=== PATIENT | male | born 2005 | race Caucasian/White ===

== ENCOUNTER 2023-03-18 22:55 | Inpatient (IN) ==
[2023-03-18] MEDS ORDERED: IOPAMIDOL 100 ML BOTTLE IV ONE (22:56)
[2023-03-18] MEDS ORDERED: 0.9 % SODIUM CHLORIDE 1,000 ML IV ONE (23:09)
[2023-03-18] MEDS ORDERED: ACETAMINOPHEN 325 MG TABLET PO ONE (23:10)
[2023-03-18] MEDS ORDERED: VANCOMYCIN 750 MG in 0.9 % SODIUM CHLORIDE 250 ML IV ONE (23:11)
[2023-03-18] MEDS ORDERED: PIPERACILLIN SODIUM/TAZOBACTAM 3.375 GM in DEXTROSE 5% IN WATER 50 ML IV ONE (23:12)
[2023-03-18] MEDS ORDERED: ACETAMINOPHEN (PP) 160 MG/5 ML BOTTLE (#120) PO ONE (23:19)
[2023-03-18] MEDS ORDERED: ACETAMINOPHEN 650 MG/65 ML BAG IV ONE (23:44)
[2023-03-18 23:49] LABS: POC Calcium, Ionized 1.02 (1.16-1.32); POC Creatinine 1.1 (0.6-1.2); POC Potassium 7.3 (3.3-5.1)
--- NOTE | 2023-03-18 23:49 | Emergency Department Note ---
HPI General Chief complaint: Fever Stated complaint: fever Time Seen by Provider: 03/18/23 23:49 Source: family Mode of arrival: wheelchair Limitations: physical limitation History of Present Illness HPI Narrative: Narrative: Patient is a 18-year-old male with a past medical history significant for cerebral palsy who presents to the emergency department due to vomiting, loose stool, and tactile fever. Patient's mother states that he seemed to be okay throughout most of the day, but had an episode of vomiting tonight. She states that after this episode of vomiting she felt his forehead, and he seemed to be w arm. She states that he has also had loose stool recently. She denies measured fever prior to arrival. She denies any other findings or concerns. Related Data Home Medications Medication Instructions Recorded Confirmed albuterol sulfate 2.5 mg/3 mL 2.5 mg IH PRN PRN Wheezing 03/19/23 03/19/23 (0.083 %) solution for nebulization baclofen 10 mg tablet 10 mg PO Q12 03/19/23 03/19/23 budesonide 0.5 mg/2 mL suspension 0.5 mg inhalation QDP PRN asthma 03/19/23 03/19/23 for nebulization clotrimazole 1 % topical cream 1 applic topical TIDP PRN Rash 03/19/23 03/19/23 diphenhydramine HCl 50 mg capsule 50 mg PO QHS 03/19/23 03/19/23 omeprazole magnesium 20 mg PO HS 03/19/23 03/19/23 Allergies Allergy/AdvReac Type Severity Reaction Status Date / Time milk AdvReac Mild Gastrointestinal Verified 03/19/23 19:20 Upset Review of Systems ROS ROS Narrative: Narrative: Constitutional: Reports fever; Denies weakness ENT ED: Denies rhinorrhea Cardiovascular: Denies edema Respiratory: Denies shortness of breath or cough Gastrointestinal: Reports vomiting and diarrhea; Denies abdominal pain, constipation, hematochezia or melena Genitourinary: Denies frequency or hematuria Musculoskeletal: Denies joint swelling Integumentary: Denies rash or lesions Neurological: Denies weakness [facility] Narrative Patient History Narrative: Narrative: Medical/Surgical/Family History All Active Problems (Updated 03/21/23 @ 07:14 by Sudhakar De La Fuente MD) Herpes simplex (Acute) Bronchitis (Acute) Conjunctivitis (Acute) Abdominal pain (Acute) Upper respiratory infection (Acute) Reactive airway disease (Acute) Fall (Acute) Chin laceration (Acute) Cerebral palsy (Acute) Wound, open, finger (Acute) Acute UTI (urinary tract infection) (Acute) Sepsis secondary to UTI (Acute) Bilateral renal stones (Acute) Left ureteral stone (Acute) Hydronephrosis, left (Acute) Fever (Acute) Leukocytosis (Acute) Hypotension (Acute) Tachycardia (Acute) Kidney stone (Acute) Sepsis (Acute) Social History Alcohol Intake Frequency: does not drink Substance Use: does not use Exam Narrative Narrative: Narrative: General Limitations: physical limitation General appearance: Present alert and in no apparent distress; Absent anxious, appears intoxicated or sleepy Head Head: Present atraumatic and normocephalic Eye Eye: Present EOMI; Absent scleral icterus or nystagmus ENT ENT: Present mucous membranes moist; Absent nasal congestion Neck Neck: Present full ROM and trachea midline Chest Chest: Present normal inspection and symmetric chest wall rise; Absent tenderness Respiratory Respiratory: Present normal lung sounds bilaterally; Absent respiratory distress, rales/crackles, wheezes, stridor or accessory muscle use Cardiovascular Cardiovascular: Present normal rhythm, tachycardia and normal heart sounds Adbominal Abdominal: Present soft and normal bowel sounds; Absent distention, tenderness, guarding, rebound or rigidity Extremities Extremities: Present normal inspection and full ROM; Absent tenderness, pedal edema or pretibial edema Back Back: Present normal inspection and full ROM; Absent CVA tenderness (R) or CVA tenderness (L) Neurological Neurological: Present alert and oriented X3 Psychiatric Psychiatric: Present normal affect and normal mood Skin Skin: Present warm (WNL), dry and normal color Course Vital Signs Vital signs: Vital Signs Temperature 102.7 F H 03/18/23 22:55 Pulse Rate 160 H 03/18/23 22:55 Respiratory Rate 24 H 03/18/23 22:55 Blood Pressure 141/125 03/18/23 22:55 Pulse Oximetry (%) 100 03/18/23 22:55 Oxygen Delivery Method Room Air 03/18/23 22:55 Temperature 98.1 F 03/21/23 06:39 Pulse Rate 70 03/21/23 06:39 Respiratory Rate 12 03/21/23 06:39 Blood Pressure 93/55 03/21/23 02:39 Pulse Oximetry (%) 98 03/21/23 06:39 Oxygen Delivery Method Mechanical Ventilation 03/21/23 06:39 MDM MDM Narrative Medical decision making narrative: Narrative: Patient is a 18-year-old male who presents to the emergency department due to vomiting and loose stool. Differential diagnoses include gastroenteritis, colitis, gallbladder disease, and pancreatitis. Patient's labs are reassuring overall, but his heart rate is not improving significantly with fluids, and his blood pressure is decreasing. We are able to obtain only a single set of cultures due to patient having a difficult blood draw. We still have not been able to obtain urine, but because patient did meet SIRS criteria we did give patient antibiotics anyway. Patient's chest x-ray does not demonstrate a cause of patient's symptoms. Because his x-ray and labs are nonrevealing a CT abdomen has been performed. Patient's CT demonstrates kidney stones. After reexamination patient's mom did state that he recently had a UTI. Urine has been obtained and dip is unrevealing, but patient had already received antibiotics. I have spoken to Dr. Maria who is agreed to see patient later today. I have spoken to Dr. Ivory who has agreed to see and evaluate patient for admission. Lab Data 03/20/23 14:02 03/20/23 19:57 Labs: Lab Results 03/18/23 03/18/23 03/19/23 Range/Units 23:44 23:45 00:04 WBC 3.4 L (4.5-11.0) K/mcL RBC 3.78 L (4.63-6.08) M/mcL Hgb 14.4 (13.7-17.5) g/dL Hct 41.7 (40.1-51.0) % POC Hct 44.0 (41-55) MCV 110.3 H (80.0-100.0) fL MCH 38.1 H (26.0-34.0) pg MCHC 34.5 (31.0-36.0) g/dL RDW 13.9 (11.5-14.5) % Plt Count 119 L (140-440) K/mcL MPV 11.6 (8.8-12.5) fL Immature Gran % (Auto) 0.9 H (0.0-0.5) % Neut % (Auto) 84.8 H (38.0-78.0) % Lymph % (Auto) 13.1 L (15.5-49.0) % [place] % (Auto) 0.9 L (1.0-12.0) % Eos % (Auto) 0 (0.0-7.0) % Baso % (Auto) 0.3 (0.0-2.0) % Lymph # (Auto) 0.44 L (1.50-4.80) K/mcL [place] # (Auto) 0.03 L (0.10-0.90) K/mcL Eos # (Auto) 0 (0.00-0.70) K/mcL Baso # (Auto) 0.01 (0.00-0.30) K/mcL Immature Gran # 0.03 (0.00-0.05) K/mcl Absolute Neutrophils 2.85 (1.80-8.00) K/mcL PT (11.9-14.5) sec INR (0.9-1.1) APTT (20.0-37.0) sec D-Dimer (0.27-0.50) ug/mL POC VBG pH 7.30 L (7.32-7.42) POC VBG pCO2 at Temp 57.6 H (41-51) POC VBG pO2 19 L (25-40) POC VBG HCO3 28.4 H (24-28) POC VBG Total CO2 30.0 H (25-29) POC Venous O2 Sat 24.0 L (40-70) POC VBG Base Excess 2.0 (-2-2) VBG Lactic Acid 4.8 H* (0.5-2) POC Sodium 136 (133-145) Sodium (133-145) mmol/L POC Potassium 7.3 H* (3.3-5.1) Potassium (3.3-5.1) mmol/L POC Chloride 100 (96-108) Chloride (96-108) mmol/L Carbon Dioxide (22-30) mmol/L POC Total CO2 28.0 (22-30) Anion Gap (8.0-16.0) POC Anion Gap 16.0 (8.0-16.0) POC BUN 11 (6-20) BUN (6-20) mg/dL Creatinine (0.7-1.2) mg/dL POC Creatinine 1.1 (0.6-1.2) GFR Calculation Glucose (70-105) mg/dL POC Glucose 70 (70-105) POC WB Ioniz Calcium 1.02 L (1.16-1.32) Ionized Calcium Kristal (1.16-1.32) mmol/L Procalcitonin (<0.10) ng/mL Urine Color Urine Appearance (Clear) Urine pH (5.0-9.0) Ur Specific E[place] (1.000-1.035) Urine Protein (Negative) mg/dL Urine Glucose (UA) (Negative) mg/dL Urine Ketones (Negative) mg/dL Urine Occult Blood (Negative) mg/dL Urine Nitrate (Negative) Urine Bilirubin (Negative) mg/dL Urine Urobilinogen mg/dL Ur Leukocyte Esterase (Negative) /uL Urine RBC (0-3) /hpf Urine WBC (0-4) /hpf Ur Squamous Epith Cells (0-4) /hpf Urine Bacteria (0) /hpf Urine Mucus (None) /hpf Ur Culture Indicated? 03/19/23 03/19/23 03/19/23 Range/Units 00:04 00:04 02:01 WBC (4.5-11.0) K/mcL RBC (4.63-6.08) M/mcL Hgb (13.7-17.5) g/dL Hct (40.1-51.0) % POC Hct (41-55) MCV (80.0-100.0) fL MCH (26.0-34.0) pg MCHC (31.0-36.0) g/dL RDW (11.5-14.5) % Plt Count (140-440) K/mcL MPV (8.8-12.5) fL Immature Gran % (Auto) (0.0-0.5) % Neut % (Auto) (38.0-78.0) % Lymph % (Auto) (15.5-49.0) % [place] % (Auto) (1.0-12.0) % Eos % (Auto) (0.0-7.0) % Baso % (Auto) (0.0-2.0) % Lymph # (Auto) (1.50-4.80) K/mcL [place] # (Auto) (0.10-0.90) K/mcL Eos # (Auto) (0.00-0.70) K/mcL Baso # (Auto) (0.00-0.30) K/mcL Immature Gran # (0.00-0.05) K/mcl Absolute Neutrophils (1.80-8.00) K/mcL PT (11.9-14.5) sec INR (0.9-1.1) APTT (20.0-37.0) sec D-Dimer (0.27-0.50) ug/mL POC VBG pH 7.41 (7.32-7.42) POC VBG pCO2 at Temp 30.3 L (41-51) POC VBG pO2 32 (25-40) POC VBG HCO3 19.4 L (24-28) POC VBG Total CO2 20.0 L (25-29) POC Venous O2 Sat 63.0 (40-70) POC VBG Base Excess -5.0 L (-2-2) VBG Lactic Acid 4.2 H* (0.5-2) POC Sodium (133-145) Sodium (133-145) mmol/L POC Potassium (3.3-5.1) Potassium 2.9 L* (3.3-5.1) mmol/L POC Chloride (96-108) Chloride (96-108) mmol/L Carbon Dioxide (22-30) mmol/L POC Total CO2 (22-30) Anion Gap (8.0-16.0) POC Anion Gap (8.0-16.0) POC BUN (6-20) BUN (6-20) mg/dL Creatinine (0.7-1.2) mg/dL POC Creatinine (0.6-1.2) GFR Calculation Glucose (70-105) mg/dL POC Glucose (70-105) POC WB Ioniz Calcium (1.16-1.32) Ionized Calcium Kristal (1.16-1.32) mmol/L Procalcitonin 3.47 H (<0.10) ng/mL Urine Color Urine Appearance (Clear) Urine pH (5.0-9.0) Ur Specific [place] (1.000-1.035) Urine Protein (Negative) mg/dL Urine Glucose (UA) (Negative) mg/dL Urine Ketones (Negative) mg/dL Urine Occult Blood (Negative) mg/dL Urine Nitrate (Negative) Urine Bilirubin (Negative) mg/dL Urine Urobilinogen mg/dL Ur Leukocyte Esterase (Negative) /uL Urine RBC (0-3) /hpf Urine WBC (0-4) /hpf Ur Squamous Epith Cells (0-4) /hpf Urine Bacteria (0) /hpf Urine Mucus (None) /hpf Ur Culture Indicated? 03/19/23 03/19/23 03/19/23 Range/Units 02:58 05:28 06:20 WBC (4.5-11.0) K/mcL RBC (4.63-6.08) M/mcL Hgb (13.7-17.5) g/dL Hct (40.1-51.0) % POC Hct (41-55) MCV (80.0-100.0) fL MCH (26.0-34.0) pg MCHC (31.0-36.0) g/dL RDW (11.5-14.5) % Plt Count (140-440) K/mcL MPV (8.8-12.5) fL Immature Gran % (Auto) (0.0-0.5) % Neut % (Auto) (38.0-78.0) % Lymph % (Auto) (15.5-49.0) % [place] % (Auto) (1.0-12.0) % Eos % (Auto) (0.0-7.0) % Baso % (Auto) (0.0-2.0) % Lymph # (Auto) (1.50-4.80) K/mcL [place] # (Auto) (0.10-0.90) K/mcL Eos # (Auto) (0.00-0.70) K/mcL Baso # (Auto) (0.00-0.30) K/mcL Immature Gran # (0.00-0.05) K/mcl Absolute Neutrophils (1.80-8.00) K/mcL PT (11.9-14.5) sec INR (0.9-1.1) APTT (20.0-37.0) sec D-Dimer (0.27-0.50) ug/mL POC VBG pH (7.32-7.42) POC VBG pCO2 at Temp (41-51) POC VBG pO2 (25-40) POC VBG HCO3 (24-28) POC VBG Total CO2 (25-29) POC Venous O2 Sat (40-70) POC VBG Base Excess (-2-2) VBG Lactic Acid 4.6 H* 5.8 H* (0.5-2) POC Sodium (133-145) Sodium (133-145) mmol/L POC Potassium (3.3-5.1) Potassium (3.3-5.1) mmol/L POC Chloride (96-108) Chloride (96-108) mmol/L Carbon Dioxide (22-30) mmol/L POC Total CO2 (22-30) Anion Gap (8.0-16.0) POC Anion Gap (8.0-16.0) POC BUN (6-20) BUN (6-20) mg/dL Creatinine (0.7-1.2) mg/dL POC Creatinine (0.6-1.2) GFR Calculation Glucose (70-105) mg/dL POC Glucose (70-105) POC WB Ioniz Calcium (1.16-1.32) Ionized Calcium Kristal (1.16-1.32) mmol/L Procalcitonin (<0.10) ng/mL Urine Color Yellow Urine Appearance Hazy A (Clear) Urine pH 6.0 (5.0-9.0) Ur Specific [place] 1.011 (1.000-1.035) Urine Protein 100 A (Negative) mg/dL Urine Glucose (UA) Negative (Negative) mg/dL Urine Ketones Negative (Negative) mg/dL Urine Occult Blood 0.20 (Negative) mg/dL Urine Nitrate Negative (Negative) Urine Bilirubin Negative (Negative) mg/dL Urine Urobilinogen Negative mg/dL Ur Leukocyte Esterase Negative (Negative) /uL Urine RBC 7 H (0-3) /hpf Urine WBC 8 H (0-4) /hpf Ur Squamous Epith Cells 1 (0-4) /hpf Urine Bacteria None (0) /hpf Urine Mucus Few A (None) /hpf Ur Culture Indicated? No 03/19/23 03/19/23 03/19/23 Range/Units 08:36 08:37 08:38 WBC 16.8 H (4.5-11.0) K/mcL RBC 2.55 L (4.63-6.08) M/mcL Hgb 9.7 L (13.7-17.5) g/dL Hct 28.9 L (40.1-51.0) % POC Hct (41-55) MCV 113.3 H (80.0-100.0) fL MCH 38.0 H (26.0-34.0) pg MCHC 33.6 (31.0-36.0) g/dL RDW 13.8 (11.5-14.5) % Plt Count 61 L (140-440) K/mcL MPV 12.0 (8.8-12.5) fL Immature Gran % (Auto) 0.9 H (0.0-0.5) % Neut % (Auto) 95.2 H (38.0-78.0) % Lymph % (Auto) 2.7 L (15.5-49.0) % [place] % (Auto) 1.0 (1.0-12.0) % Eos % (Auto) 0.1 (0.0-7.0) % Baso % (Auto) 0.1 (0.0-2.0) % Lymph # (Auto) 0.46 L (1.50-4.80) K/mcL [place] # (Auto) 0.16 (0.10-0.90) K/mcL Eos # (Auto) 0.01 (0.00-0.70) K/mcL Baso # (Auto) 0.01 (0.00-0.30) K/mcL Immature Gran # 0.15 H (0.00-0.05) K/mcl Absolute Neutrophils 15.97 H (1.80-8.00) K/mcL PT (11.9-14.5) sec INR (0.9-1.1) APTT (20.0-37.0) sec D-Dimer (0.27-0.50) ug/mL POC VBG pH (7.32-7.42) POC VBG pCO2 at Temp (41-51) POC VBG pO2 (25-40) POC VBG HCO3 (24-28) POC VBG Total CO2 (25-29) POC Venous O2 Sat (40-70) POC VBG Base Excess (-2-2) VBG Lactic Acid 6.5 H* (0.5-2) POC Sodium (133-145) Sodium 138 (133-145) mmol/L POC Potassium (3.3-5.1) Potassium 2.9 L* (3.3-5.1) mmol/L POC Chloride (96-108) Chloride 111 H (96-108) mmol/L Carbon Dioxide 14 L (22-30) mmol/L POC Total CO2 (22-30) Anion Gap 13.0 (8.0-16.0) POC Anion Gap (8.0-16.0) POC BUN (6-20) BUN 11 (6-20) mg/dL Creatinine 1.1 (0.7-1.2) mg/dL POC Creatinine (0.6-1.2) GFR Calculation 96 Glucose 93 (70-105) mg/dL POC Glucose (70-105) POC WB Ioniz Calcium (1.16-1.32) Ionized Calcium Kristal 0.95 L (1.16-1.32) mmol/L Procalcitonin (<0.10) ng/mL Urine Color Urine Appearance (Clear) Urine pH (5.0-9.0) Ur Specific [place] (1.000-1.035) Urine Protein (Negative) mg/dL Urine Glucose (UA) (Negative) mg/dL Urine Ketones (Negative) mg/dL Urine Occult Blood (Negative) mg/dL Urine Nitrate (Negative) Urine Bilirubin (Negative) mg/dL Urine Urobilinogen mg/dL Ur Leukocyte Esterase (Negative) /uL Urine RBC (0-3) /hpf Urine WBC (0-4) /hpf Ur Squamous Epith Cells (0-4) /hpf Urine Bacteria (0) /hpf Urine Mucus (None) /hpf Ur Culture Indicated? 03/19/23 03/19/23 Range/Units 08:49 08:49 WBC (4.5-11.0) K/mcL RBC (4.63-6.08) M/mcL Hgb (13.7-17.5) g/dL Hct (40.1-51.0) % POC Hct (41-55) MCV (80.0-100.0) fL MCH (26.0-34.0) pg MCHC (31.0-36.0) g/dL RDW (11.5-14.5) % Plt Count (140-440) K/mcL MPV (8.8-12.5) fL Immature Gran % (Auto) (0.0-0.5) % Neut % (Auto) (38.0-78.0) % Lymph % (Auto) (15.5-49.0) % [place] % (Auto) (1.0-12.0) % Eos % (Auto) (0.0-7.0) % Baso % (Auto) (0.0-2.0) % Lymph # (Auto) (1.50-4.80) K/mcL [place] # (Auto) (0.10-0.90) K/mcL Eos # (Auto) (0.00-0.70) K/mcL Baso # (Auto) (0.00-0.30) K/mcL Immature Gran # (0.00-0.05) K/mcl Absolute Neutrophils (1.80-8.00) K/mcL PT 23.4 H (11.9-14.5) sec INR 2.0 H (0.9-1.1) APTT 51.8 H (20.0-37.0) sec D-Dimer 8.28 H (0.27-0.50) ug/mL POC VBG pH (7.32-7.42) POC VBG pCO2 at Temp (41-51) POC VBG pO2 (25-40) POC VBG HCO3 (24-28) POC VBG Total CO2 (25-29) POC Venous O2 Sat (40-70) POC VBG Base Excess (-2-2) VBG Lactic Acid (0.5-2) POC Sodium (133-145) Sodium (133-145) mmol/L POC Potassium (3.3-5.1) Potassium (3.3-5.1) mmol/L POC Chloride (96-108) Chloride (96-108) mmol/L Carbon Dioxide (22-30) mmol/L POC Total CO2 (22-30) Anion Gap (8.0-16.0) POC Anion Gap (8.0-16.0) POC BUN (6-20) BUN (6-20) mg/dL Creatinine (0.7-1.2) mg/dL POC Creatinine (0.6-1.2) GFR Calculation Glucose (70-105) mg/dL POC Glucose (70-105) POC WB Ioniz Calcium (1.16-1.32) Ionized Calcium Kristal (1.16-1.32) mmol/L Procalcitonin (<0.10) ng/mL Urine Color Urine Appearance (Clear) Urine pH (5.0-9.0) Ur Specific [place] (1.000-1.035) Urine Protein (Negative) mg/dL Urine Glucose (UA) (Negative) mg/dL Urine Ketones (Negative) mg/dL Urine Occult Blood (Negative) mg/dL Urine Nitrate (Negative) Urine Bilirubin (Negative) mg/dL Urine Urobilinogen mg/dL Ur Leukocyte Esterase (Negative) /uL Urine RBC (0-3) /hpf Urine WBC (0-4) /hpf Ur Squamous Epith Cells (0-4) /hpf Urine Bacteria (0) /hpf Urine Mucus (None) /hpf Ur Culture Indicated? EKG Data EKG #1: EKG attestation: Yes I reviewed and interpreted this EKG. EKG results narrative: Sinus tachycardia with a rate of 142, normal axis, MD of 97, QRS of 100, QTc of 382, T wave flattening in aVL, and absence of ST elevation or depression. Discharge Plan Patient/Caregiver Discharge Instructions Pt seen by CLIENT COORDINATOR/PA only: No Clinical Impression: Kidney stone, Sepsis Patient Disposition: Xfer As Outpt/Obs ([facility]) Condition: Undetermined Discharge Date/Time: 03/19/23 07:49
[2023-03-19] MEDS ORDERED: ONDANSETRON 4 MG/2 ML VIAL IV ONE (00:01)
[2023-03-19 01:30] LABS: Basophils # (Auto) 0.01 K/mcL (0.00-0.30); Basophils % (Auto) 0.3 % (0.0-2.0); Eosinophils # (Auto) 0 K/mcL (0.00-0.70); Eosinophils % (Auto) 0 % (0.0-7.0); Hematocrit 41.7 % (40.1-51.0); Hemoglobin 14.4 g/dL (13.7-17.5); Lymphocytes # (Auto) 0.44 K/mcL (1.50-4.80); Lymphocytes % (Auto) 13.1 % (15.5-49.0); Mean Cell Volume 110.3 fL (80.0-100.0); Mean Corpuscular HGB Conc 34.5 g/dL (31.0-36.0); Mean Platelet Volume 11.6 fL (8.8-12.5); Monocytes # (Auto) 0.03 K/mcL (0.10-0.90); Monocytes % (Auto) 0.9 % (1.0-12.0); Neutrophils % (Auto) 84.8 % (38.0-78.0); Platelet Count 119 K/mcL (140-440); RBC 3.78 M/mcL (4.63-6.08); Red Cell Distribution Width 13.9 % (11.5-14.5); WBC 3.4 K/mcL (4.5-11.0)
[2023-03-19] MEDS ORDERED: 0.9 % SODIUM CHLORIDE 500 ML IV ONE ×2 (01:37→02:56)
[2023-03-19] MEDS ORDERED: MAGNESIUM SULFATE 1 GM/100 ML BAG IV ONE (01:42)
[2023-03-19] MEDS ORDERED: POTASSIUM CHLORIDE 20 MEQ in DEXTROSE 5% IN WATER 250 ML IV ONE (01:42)
[2023-03-19] MEDS ORDERED: MAGNESIUM SULFATE 8.12 MEQ/2 ML VIAL IV ONE (02:29)
[2023-03-19] MEDS ORDERED: KETOROLAC 30 MG/ML VIAL IV ONE (04:42)
--- NOTE | 2023-03-19 05:03 | XRay Report ---
INDICATION: Fever, unknown infection TECHNIQUE: AP portable semiupright chest x-ray COMPARISON: Previous examination dated 06/29/2018 FINDINGS:Positioning is difficult and somewhat suboptimal with rotation toward the right Lungs:Lungs are negative. No focal pulmonary parenchymal infiltrate or mass Heart, vascular:No significant cardiomegaly. Pulmonary vascularity is normal. No pulmonary edema or pulmonary congestion Mediastinum, campbell:No mediastinal widening. No hilar mass Pleura:No pleural fluid. No pleural-based mass or calcification Skeletal:Negative. IMPRESSION: No acute abnormality Interpreted and Authenticated by: Lalito Dao 03/19/23
[2023-03-19] MEDS: 0.9 % SODIUM CHLORIDE 250 ML IV SCH ×2 (06:00→19:20)
[2023-03-19] MEDS: LACTATED RINGERS 1,000 ML IV SCH ×3 (06:01→18:47)
[2023-03-19] MEDS: NOREPINEPHRINE BITARTRATE 8 MG in 0.9 % SODIUM CHLORIDE 242 ML IV SCH ×2 (06:02→17:46)
--- NOTE | 2023-03-19 06:12 | Cat Scan Report ---
INDICATION: Sepsis, N/V/D, unknown source of infection COMPARISON: Chest x-ray dated 03/19/2023. Plain film abdomen dated 02/20/2021 TECHNIQUE: Axial images were obtained through the abdomen and pelvis. Sagittally and coronally reformatted images. 80 mL Isovue 370 injected intravenously. Oral contrast material was not administered FINDINGS: Lung bases:No focal pulmonary parenchymal infiltrate. There is a very small right pleural effusion Liver:Negative. No focal intrahepatic mass. No focal abnormality. Liver contour is smooth. No evidence for cirrhosis Gallbladder, bilary:No calcified gallstones. No gallbladder wall thickening. No dilated intra or extrahepatic bile ducts. Spleen:No splenomegaly. Normal enhancement of splenic and portal veins. Pancreas:No pancreatic mass. No peripancreatic abnormality Adrenal glands:Negative Kidneys,ureters,bladder:There is a stone in the right renal pelvis. This measures 8 x 4 x 7 mm. There is no right hydronephrosis. There is normal enhancement of right renal parenchyma. No perinephric abnormality. No other nonobstructing right renal calculi. There are multiple nonobstructing left renal calculi. There is an obstructing left renal calculus which is at the L4-5 level in the mid left ureter. This stone measures 10 x 8 x 14 mm. There is moderate left hydronephrosis with perinephric stranding. Left renal cortex enhances normally without definite evidence for pyelonephritis or lobar nephronia. Pyonephrosis is possible in this patient with leukocytosis and fever of unknown origin. Urinary bladder is distended. Urinary bladder floor appears mildly thickened but without focal mass. There is no bladder calculus. There is no intravesicle gas or intramural gas. Gastrointestinal:There is prominent fecal material throughout the colon with diffuse colonic wall thickening. Appearance is consistent with chronic constipation. There is no pneumatosis. Mild fluid-filled small bowel dilatation. No transition point or evidence for significant mechanical small bowel obstruction Negative stomach and duodenum. No focal abnormality. Appendix: The appendix is now well visualized. No dilated appendix or appendicolith. No CT evidence for appendicitis Vascular:Negative abdominal aorta. Superior mesenteric artery and celiac trunk are normal. Normal opacification of the inferior mesenteric artery Lymphatic:No retroperitoneal or mesenteric adenopathy Mesentery, peritoneum: Mild free fluid in the perihepatic space. No definite free pelvic fluid. There is no intra-abdominal abscess. There is no pneumoperitoneum Reproductive:Prostate and seminal vesicles appear enlarged. There is no abscess or surrounding inflammatory change Musculoskeletal:No lumbar compression fractures. Sacrum and pelvis are negative. No hip fracture. No abdominal wall or inguinal hernia IMPRESSION: 1. Nonobstructing renal calculi bilaterally. Obstructing stone in the left mid ureter measures 10 x 8 x 14 mm 2. Left hydronephrosis and hydroureter. Pyonephrosis is possible in this febrile patient 3. Distended bladder. No intravesical or intramural gas 4. Mild free intraperitoneal fluid in the perihepatic space. Small right pleural effusion 5. Prominent colon. Appearance consistent with chronic constipation 6. No intra-abdominal abscess. 7. Appendix is not optimally visualized but there is no CT evidence for appendicitis The exam was performed using radiation dose optimization techniques including, but not limited to, automated exposure control, adjustment of the mA and/or kV according to patient size and use of iterative reconstruction technique. Interpreted and Authenticated by: Lalito Dao 03/19/23
--- NOTE | 2023-03-19 07:04 | Urology Consult Note ---
HPI Date of Consult Consult Date: 03/19/23 Requesting physician: Sudhakar De La Fuente Consult Narrative Patient Information: Note initiated : 03/19/23 at 6:51 am Service Date, if different from initiated Date: [] Patient: Ej Kimble a 18 y/o M admitted on urosepsis. Chief Complaint: Ej is a 18-year-old male with a history of cerebral palsy. He presented to our emergency department earlier this morning with emesis, loose stool and fever. White blood cell count is actually low at 3.4. BUN and creatinine are pending. The patient was given antibiotics prior to obtaining a urine for culture. Obtaining a urine for culture was difficult due to the patient's cerebral palsy. CT of the abdomen and pelvis with contrast was obtained. This reveals an 8 x 4 x 7 mm stone in the right renal pelvis without hydronephrosis. There were multiple nonobstructing left renal stones. There is a 10 x 8 x 14 mm left ureteral stone at the level of L4-5. There is moderate left hydronephrosis and left perinephric stranding. Radiology indicated that the hydronephrosis is possible in this patient with leukocytosis and a fever. The urinary bladder was distended. There were no bladder stones. I personally reviewed the films I have personally reviewed the films. The patient is uncommunicative and history is obtained from the mother who is at the bedside. Chief complaint: Urosepsis and bilateral renal stones Reason for consult: Urosepsis and bilateral renal stones cc:: CC: Review of Systems ROS unobtainable: due to mental status All systems: reviewed and no additional remarkable complaints except as stated Constitutional Constitutional: Present fever(s) Neurological Neurological: Present as per HPI Psychiatric Psychiatric: Present as per HPI PFSH PFSH All Active Problems (Updated 03/19/23 @ 07:37 by Rafat Maria MD) Tachycardia (Acute) Hypotension (Acute) Leukocytosis (Acute) Fever (Acute) Hydronephrosis, left (Acute) Left ureteral stone (Acute) Bilateral renal stones (Acute) Sepsis secondary to UTI (Acute) Acute UTI (urinary tract infection) (Acute) Herpes simplex (Acute) Bronchitis (Acute) Conjunctivitis (Acute) Abdominal pain (Acute) Upper respiratory infection (Acute) Reactive airway disease (Acute) Fall (Acute) Chin laceration (Acute) Cerebral palsy (Acute) Wound, open, finger (Acute) Social History alcohol intake frequency: does not drink substance use type: does not use MEDS/ALLERGIES Home Medications and Allergies Home Medications Medication Instructions Recorded Confirmed Type albuterol sulfate 2.5 mg/3 mL 2.5 mg IH PRN PRN Wheezing 03/19/23 03/19/23 History (0.083 %) solution for nebulization [id number] 10 ml PO PRN PRN cold symptoms 03/19/23 03/19/23 History 2 mg-30 mg-10 mg/5 mL oral syrup (Bromfed DM) diphenhydramine HCl 50 mg capsule 50 mg PO QHS 03/19/23 03/19/23 History omeprazole magnesium 20 mg PO HS 03/19/23 03/19/23 History Allergies Allergy/AdvReac Type Severity Reaction Status Date / Time milk AdvReac Mild Gastrointestinal Verified 03/19/23 06:50 Upset Physical Examination Vital Signs Vital signs: Temp Pulse Resp BP Pulse Ox O2 Del Method 100.9 F H 123 H 26 H 87/47 100 Room Air 03/19/23 06:03 03/19/23 03:30 03/19/23 06:45 03/19/23 06:45 03/19/23 03:30 03/18/23 22:55 General physical appearance General physical exam: well nourished, moderate distress and chronically ill Eyes Eye exam: other ENT ENT exam: other (Not able to assess) Head Head exam IM: Present atraumatic, normal inspection and normocephalic Neck Neck exam: trachea midline Cardiovascular Cardiovascular exam IM: Present normal rate and rhythm and tachycardia Respiratory Respiratory exam: normal expansion, normal respiratory effort and clear to auscultation Abdomen Abdomen: Present soft and non tender Neurologic Neurologic: Absent normal coordination Musculoskeletal Musculoskeletal: Present other (Lower extremity contractures); Absent normal gait or normal posture Psychiatric Psychiatric: Absent oriented to time, oriented to person, oriented to place, speech is normal or memory intact Results Labs 03/19/23 00:04 03/19/23 00:04 Labs: Abnormal lab results 03/18/23 03/18/23 03/19/23 Range/Units 23:44 23:45 00:04 WBC 3.4 L (4.5-11.0) K/mcL RBC 3.78 L (4.63-6.08) M/mcL MCV 110.3 H (80.0-100.0) fL MCH 38.1 H (26.0-34.0) pg Plt Count 119 L (140-440) K/mcL Immature Gran % (Auto) 0.9 H (0.0-0.5) % Neut % (Auto) 84.8 H (38.0-78.0) % Lymph % (Auto) 13.1 L (15.5-49.0) % [place] % (Auto) 0.9 L (1.0-12.0) % Lymph # (Auto) 0.44 L (1.50-4.80) K/mcL [place] # (Auto) 0.03 L (0.10-0.90) K/mcL POC VBG pH 7.30 L (7.32-7.42) POC VBG pCO2 at Temp 57.6 H (41-51) POC VBG pO2 19 L (25-40) POC VBG HCO3 28.4 H (24-28) POC VBG Total CO2 30.0 H (25-29) POC Venous O2 Sat 24.0 L (40-70) POC VBG Base Excess (-2-2) VBG Lactic Acid 4.8 H* (0.5-2) POC Potassium 7.3 H* (3.3-5.1) Potassium (3.3-5.1) mmol/L POC WB Ioniz Calcium 1.02 L (1.16-1.32) Procalcitonin (<0.10) ng/mL 03/19/23 03/19/23 03/19/23 Range/Units 00:04 00:04 02:01 WBC (4.5-11.0) K/mcL RBC (4.63-6.08) M/mcL MCV (80.0-100.0) fL MCH (26.0-34.0) pg Plt Count (140-440) K/mcL Immature Gran % (Auto) (0.0-0.5) % Neut % (Auto) (38.0-78.0) % Lymph % (Auto) (15.5-49.0) % [place] % (Auto) (1.0-12.0) % Lymph # (Auto) (1.50-4.80) K/mcL [place] # (Auto) (0.10-0.90) K/mcL POC VBG pH (7.32-7.42) POC VBG pCO2 at Temp 30.3 L (41-51) POC VBG pO2 (25-40) POC VBG HCO3 19.4 L (24-28) POC VBG Total CO2 20.0 L (25-29) POC Venous O2 Sat (40-70) POC VBG Base Excess -5.0 L (-2-2) VBG Lactic Acid 4.2 H* (0.5-2) POC Potassium (3.3-5.1) Potassium 2.9 L* (3.3-5.1) mmol/L POC WB Ioniz Calcium (1.16-1.32) Procalcitonin 3.47 H (<0.10) ng/mL 03/19/23 03/19/23 Range/Units 02:58 05:28 WBC (4.5-11.0) K/mcL RBC (4.63-6.08) M/mcL MCV (80.0-100.0) fL MCH (26.0-34.0) pg Plt Count (140-440) K/mcL Immature Gran % (Auto) (0.0-0.5) % Neut % (Auto) (38.0-78.0) % Lymph % (Auto) (15.5-49.0) % [place] % (Auto) (1.0-12.0) % Lymph # (Auto) (1.50-4.80) K/mcL [place] # (Auto) (0.10-0.90) K/mcL POC VBG pH (7.32-7.42) POC VBG pCO2 at Temp (41-51) POC VBG pO2 (25-40) POC VBG HCO3 (24-28) POC VBG Total CO2 (25-29) POC Venous O2 Sat (40-70) POC VBG Base Excess (-2-2) VBG Lactic Acid 4.6 H* 5.8 H* (0.5-2) POC Potassium (3.3-5.1) Potassium (3.3-5.1) mmol/L POC WB Ioniz Calcium (1.16-1.32) Procalcitonin (<0.10) ng/mL Diabetes panel 03/19/23 Range/Units 00:04 Potassium 2.9 L* (3.3-5.1) mmol/L Pituitary panel 03/19/23 Range/Units 00:04 Potassium 2.9 L* (3.3-5.1) mmol/L Adrenal panel 03/19/23 Range/Units 00:04 Potassium 2.9 L* (3.3-5.1) mmol/L All other labs normal. Imaging CT scan - abdomen: report reviewed and image reviewed CT scan - pelvis: report reviewed and image reviewed A/P Assessment and plan (1) Cerebral palsy: Status: Acute (2) Acute UTI (urinary tract infection): Status: Acute (3) Sepsis secondary to UTI: Status: Acute (4) Bilateral renal stones: Status: Acute (5) Left ureteral stone: Status: Acute (6) Hydronephrosis, left: Status: Acute (7) Fever: Status: Acute (8) Leukocytosis: Status: Acute (9) Hypotension: Status: Acute (10) Tachycardia: Status: Acute Sepsis Sepsis Identified: Yes Date Sepsis Identified: 03/19/23 Comments: Informed patient septic per ER Narrative A/P Narrative: Ej is a 18-year-old male with a history of cerebral palsy. He is noncommunicative and all history is obtained through the mother. He presented to the emergency department this morning with complaints of fever and emesis. CT scan of the abdomen and pelvis was obtained that showed bilateral renal stones and an obstructing 10 mm left distal ureteral stone at the level of L4-5 with left hydronephrosis. The patient was given antibiotics prior to obtaining urine for culture. He has not had anything to eat or drink since yesterday evening. The plan is for him to be admitted to the hospitalist service. He has current signs of urosepsis with tachycardia and hypotension. We discussed taking him to the operating room emergently for cystoscopy, bilateral retrograde pyelograms, and bilateral ureteral stent placement. We discussed going to the operating room and under general anesthesia performing cystoscopy, bilateral retrograde pyelogram, and bilateral ureteral stent placement. I discussed the procedure with the patient and his mother. We discussed possible risks and side effects including, but not limited to: bleeding, infection, damage to the urethra and to the bladder, damage to the ureters and kidneys, postoperative urgency and frequency, and postoperative hematuria. They understand that the stones will not be treated today as we do not treat the stones in the presence of infection. We are simply going to unblock the kidneys to allow the kidneys to drain so that the infection can be cleared. He will need for further surgery to treat the stones at a later date. In addition there are small risks of heart attack, stroke and , and risks of anesthesia that the patient will discuss separately with the anesthesia provider prior to the procedure. The patient and his mother understand that the ureteral stents are temporary devices. This will need to be removed within 3 months. The patient and his mother understand the procedure and its associated risks. A signed consent form was obtained from the mother. Time Spent With Patient Time: Total time spent is greater than 50% in coordination of care (as documented) at patient's floor/unit and/or counseling patient:
--- NOTE | 2023-03-19 07:11 | Internal Med History&Physical ---
HPI History of Present Illness Patient information: Note initiated : 03/19/23 at 7:08 am Service Date, if different from initiated Date: [] Patient: Ej Kimble 18 y/o M admitted on for fever. Chief Complaint: [] History of present illness: Patient is a 18 years old male with history of asthma/reactive airway disease, cerebral palsy, developmental delay, noncommunicative, wheelchair-bound, herpes type II, presented acute onset vomiting, nausea, fever and loose stool. His mother is the main caregiver and contributed to the history. She reported that patient was in normal state of health when suddenly he started vomiting x3, he tensed up his body as if he was in distress. Mother touched patient's for her and it was quite warm to touch, but did not check his temperature. She reported patient had UTI a month ago and was treated with antibiotic. She reports patient does aspirate and is on pured diet. 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 On presentation patient was hypotensive BP 75/39, tachycardia 127 bpm, tachypneic respiratory rate 29, fever 103.3. CBC showed WBC 3.4, hemoglobin 14.4, will lactic acid 4.8, potassium 2.9, procalcitonin 3.47. UA still pending. CT abdomen and pelvis with contrast showed nonobstructing renal calculi bilaterally, obstructing stone in the left mid ureter measuring 10 x 8 x 14 mm, left hydronephrosis and hydroureter. Pyonephrosis is possible. Chest x-ray was unremarkable. EKG showed sinus tachycardia with a rate of 142, normal axis, AK of 97, QRS of 100, QTc of 382, T wave flattening in aVL, and absence of ST elevation or depression. Patient was seen with Dr. Maria from urology and with anesthesiologist in preop room. He remains hypotensive requiring vasopressor and fluid resuscitation. Review of system Constitutional: Denies fever or weakness Eyes: Denies eye pain or vision change ENT ED: Denies throat pain, hearing loss or rhinorrhea Cardiovascular: Denies chest pain, dyspnea on exertion, orthopnea or edema Respiratory: Denies shortness of breath or cough Gastrointestinal: Positive for nausea, vomiting and loose stool Genitourinary: Denies dysuria, frequency, hematuria or incontinence Musculoskeletal: Denies back pain or myalgia Integumentary: Denies rash or lesions Neurological: Denies headache, weakness, numbness, confusion, abnormal gait or dizziness Psychiatric: Denies anxiety, suicidal thoughts or homicidal thoughts Endocrine: Denies fatigue or polyuria Hematological/Lymphatic: Denies easy bleeding or easy bruising Physical examination General appearance: Present appears tired, would open his eyes but tends to keep them closed, no distress Head Head: Present normocephalic; Absent atraumatic Eye Eye: Present PERRL, EOMI and visual willard intact; Absent scleral icterus or nystagmus ENT ENT: Present mucous membranes moist; Absent nasal congestion Neck Neck: Present full ROM; Absent tenderness Chest Chest: Present normal inspection, symmetric chest wall rise and tenderness Respiratory Respiratory: Present normal lung sounds bilaterally; Absent respiratory distress or accessory muscle use Cardiovascular Cardiovascular: Present regular rate, normal rhythm and normal heart sounds Adbominal Abdominal: Present soft and normal bowel sounds; Absent distention or tenderness Rectal Rectal: Present deferred Extremities Extremities: Present normal inspection and full ROM; Absent tenderness Back Back: Present normal inspection and full ROM; Absent tenderness Neurological Neurological: Present alert, moving all limbs Psychiatric Psychiatric: Present normal affect and normal mood Skin Skin: Present warm (WNL), dry and normal color Patient was admitted for severe sepsis with septic shock, UTI and renal calculi Assessment Severe sepsis with septic shock despite appropriate fluid resuscitation, requiring vasopressor, currently on Levophed, still hypotensive with rising lactic acid Urinary tract infection Bilateral renal calculi Obstructing left ureter stone measuring 10 x 8 x 14 mm Left hydronephrosis and hydroureter Reactive airway disease/asthma Cerebral palsy Developmental delay Noncommunicative Plan Patient is going for surgery cystoscopy bilateral ureteral stent placement per urology He is hypotensive despite IV fluid resuscitation and being on Levophed. Discussed in detail, mother aware that patient is very critical and prognosis is guarded Continue Levophed and IV fluid resuscitation, will likely need another vasopressor agent Continue broad-spectrum antibiotics vancomycin and Zosyn Follow UA and culture data DVT prophylaxis GI prophylaxis Full code Critical care time 95 minutes [facility] All Active Problems (Updated 03/19/23 @ 07:37 by Rafat Maria MD) Herpes simplex (Acute) Bronchitis (Acute) Conjunctivitis (Acute) Abdominal pain (Acute) Upper respiratory infection (Acute) Reactive airway disease (Acute) Fall (Acute) Chin laceration (Acute) Cerebral palsy (Acute) Wound, open, finger (Acute) Acute UTI (urinary tract infection) (Acute) Sepsis secondary to UTI (Acute) Bilateral renal stones (Acute) Left ureteral stone (Acute) Hydronephrosis, left (Acute) Fever (Acute) Leukocytosis (Acute) Hypotension (Acute) Tachycardia (Acute) Social History alcohol intake frequency: does not drink substance use type: does not use MEDS/ALLERGIES Home Medications and Allergies Home Medications Medication Instructions Recorded Confirmed Type albuterol sulfate 2.5 mg/3 mL 2.5 mg IH PRN PRN Wheezing 03/19/23 03/19/23 History (0.083 %) solution for nebulization ehuexqmybehdsqc-olzdjuprcajmgez-EI 10 ml PO PRN PRN cold symptoms 03/19/23 03/19/23 History 2 mg-30 mg-10 mg/5 mL oral syrup (Bromfed DM) diphenhydramine HCl 50 mg capsule 50 mg PO QHS 03/19/23 03/19/23 History omeprazole magnesium 20 mg PO HS 03/19/23 03/19/23 History Allergies Allergy/AdvReac Type Severity Reaction Status Date / Time milk AdvReac Mild Gastrointestinal Verified 03/19/23 06:50 Upset EXAM Constitutional Vitals: Temp Pulse Resp BP Pulse Ox O2 Del Method 100.9 F H 123 H 25 H 84/52 100 Room Air 03/19/23 06:03 03/19/23 03:30 03/19/23 07:05 03/19/23 07:00 03/19/23 03:30 03/18/23 22:55 DATA Data Completed and Pending Labs: Labs from last 24 hours 03/19/23 03/19/23 03/19/23 06:20 05:28 02:58 WBC RBC Hgb Hct POC Hct MCV MCH MCHC RDW Plt Count MPV Immature Gran % (Auto) Neut % (Auto) Lymph % (Auto) [place] % (Auto) Eos % (Auto) Baso % (Auto) Lymph # (Auto) [place] # (Auto) Eos # (Auto) Baso # (Auto) Immature Gran # Absolute Neutrophils POC VBG pH POC VBG pCO2 at Temp POC VBG pO2 POC VBG HCO3 POC VBG Total CO2 POC Venous O2 Sat POC VBG Base Excess VBG Lactic Acid 5.8 H* 4.6 H* POC Sodium POC Potassium Potassium POC Chloride POC Total CO2 POC Anion Gap POC BUN POC Creatinine POC Glucose POC WB Ioniz Calcium Procalcitonin Urine Color Pending Urine Appearance Pending Urine pH Pending Ur Specific [place] Pending Urine Protein Pending Urine Glucose (UA) Pending Urine Ketones Pending Urine Occult Blood Pending Urine Nitrate Pending Urine Bilirubin Pending Urine Urobilinogen Pending Ur Leukocyte Esterase Pending 03/19/23 03/19/23 03/19/23 02:01 00:04 00:04 WBC RBC Hgb Hct POC Hct MCV MCH MCHC RDW Plt Count MPV Immature Gran % (Auto) Neut % (Auto) Lymph % (Auto) [place] % (Auto) Eos % (Auto) Baso % (Auto) Lymph # (Auto) [place] # (Auto) Eos # (Auto) Baso # (Auto) Immature Gran # Absolute Neutrophils POC VBG pH 7.41 POC VBG pCO2 at Temp 30.3 L POC VBG pO2 32 POC VBG HCO3 19.4 L POC VBG Total CO2 20.0 L POC Venous O2 Sat 63.0 POC VBG Base Excess -5.0 L VBG Lactic Acid 4.2 H* POC Sodium POC Potassium Potassium 2.9 L* POC Chloride POC Total CO2 POC Anion Gap POC BUN POC Creatinine POC Glucose POC WB Ioniz Calcium Procalcitonin 3.47 H Urine Color Urine Appearance Urine pH Ur Specific [place] Urine Protein Urine Glucose (UA) Urine Ketones Urine Occult Blood Urine Nitrate Urine Bilirubin Urine Urobilinogen Ur Leukocyte Esterase 03/19/23 03/18/23 03/18/23 00:04 23:45 23:44 WBC 3.4 L RBC 3.78 L Hgb 14.4 Hct 41.7 POC Hct 44.0 MCV 110.3 H MCH 38.1 H MCHC 34.5 RDW 13.9 Plt Count 119 L MPV 11.6 Immature Gran % (Auto) 0.9 H Neut % (Auto) 84.8 H Lymph % (Auto) 13.1 L [place] % (Auto) 0.9 L Eos % (Auto) 0 Baso % (Auto) 0.3 Lymph # (Auto) 0.44 L [place] # (Auto) 0.03 L Eos # (Auto) 0 Baso # (Auto) 0.01 Immature Gran # 0.03 Absolute Neutrophils 2.85 POC VBG pH 7.30 L POC VBG pCO2 at Temp 57.6 H POC VBG pO2 19 L POC VBG HCO3 28.4 H POC VBG Total CO2 30.0 H POC Venous O2 Sat 24.0 L POC VBG Base Excess 2.0 VBG Lactic Acid 4.8 H* POC Sodium 136 POC Potassium 7.3 H* Potassium POC Chloride 100 POC Total CO2 28.0 POC Anion Gap 16.0 POC BUN 11 POC Creatinine 1.1 POC Glucose 70 POC WB Ioniz Calcium 1.02 L Procalcitonin Urine Color Urine Appearance Urine pH Ur Specific [place] Urine Protein Urine Glucose (UA) Urine Ketones Urine Occult Blood Urine Nitrate Urine Bilirubin Urine Urobilinogen Ur Leukocyte Esterase Preliminary micro results at discharge 03/18/23 01:56 Blood Culture - Preliminary Blood A/P Time Spent With Patient Time: Total time spent is greater than 50% in coordination of care (as documented) at patient's floor/unit and/or counseling patient:
[2023-03-19 07:16] LABS: Appearance,Urine HAZY (Clear); Bilirubin,Urine Negative (Negative); Color,Urine YELLOW; Culture Indicated,Urine No; Glucose,Urine (UA) Negative (Negative); Ketones,Urine Negative (Negative); Leukocyte Esterase,Urine Negative /uL (Negative); Mucus,Urine FEW /hpf; Nitrate,Urine Negative (Negative); Protein,Urine 100 mg/dL (Negative); Specific Gravity,Urine 1.011 (1.000-1.035); Urine RBC 7 /hpf (0-3); Urine Squamous Epithelial Cell 1 /hpf (0-4); Urine WBC 8 /hpf (0-4); Urobilinogen,Urine Negative
[2023-03-19] MEDS ORDERED: IOVERSOL 20 ML VIAL IJ ONE (07:26)
[2023-03-19] MEDS ORDERED: LIDOCAINE 2% URO-JET 10 ML JEL.PF.APP UR ONE (07:26)
[2023-03-19] MEDS ORDERED: PIPERACILLIN SODIUM/TAZOBACTAM 3.375 GM in DEXTROSE 5% IN WATER 50 ML IV SCH (07:45)
[2023-03-19] MEDS ORDERED: ALBUMIN HUMAN 25 GM/100 ML BAG IV SCH (07:50)
[2023-03-19] MEDS ORDERED: SODIUM BICARBONATE ADULT 50 MEQ/50 ML SYRINGE IV ONE (08:01)
[2023-03-19] MEDS ORDERED: VASOPRESSIN 20 UNIT/ML VIAL ONE (08:01)
[2023-03-19] MEDS ORDERED: KETAMINE 50 MG/ML Syringe (ANEST) IV ONE (08:01)
[2023-03-19] MEDS ORDERED: ROCURONIUM 10 MG/ML ML IV ONE ×2 (08:01→19:06)
[2023-03-19] MEDS ORDERED: MIDAZOLAM 5 MG/5 ML VIAL ONE (08:01)
[2023-03-19] MEDS ORDERED: CALCIUM CHLORIDE 1,000 MG/10 ML VIAL ONE (08:01)
[2023-03-19] MEDS ORDERED: EPINEPHrine 1 MG/10 ML (1:10,000) SYRINGE IV ONE (08:01)
[2023-03-19] MEDS ORDERED: LIDOCAINE HCL/PF 100 MG/5 ML SYRINGE IV ONE (08:01)
[2023-03-19] MEDS ORDERED: NOREPINEPHRINE BITARTRATE 4 MG/4 ML VIAL IV ONE (08:01)
--- NOTE | 2023-03-19 09:02 | Operative Note ---
Brief Operative Note Date of procedure: 03/19/23 Pre-op diagnosis: Septic shock, obstructing left ureteral stone, bilateral renal stones. Post-op diagnosis: same Procedure: Cystoscopy, bilateral Grafts/Implants: Yes (6 [place] by 24 cm ureteral stents with no strings bilaterally. 18 F cath.) Anesthesia: GETA Findings: 10 mm obstructing left distal ureteral stone and bilateral renal stones. Patient with septic shock. Complications: none Surgeon: Rafat Maria Estimated blood loss (cc): 5 Specimens Removed/Pathology: none sent Condition: stable Disposition: PACU Operative Note Operative Note: After obtaining informed consent from the patient's mother, the she was brought emergently to the operating room. General anesthesia was provided. He was then with difficulty repositioned into a dorsolithotomy position. Positioning was difficult due to contracture of the lower extremities. Despite the patient's age she is also of small size. He was prepped and draped in usual sterile fashion. Attention was directed to the urethral meatus where a 21 [place] cystoscope was passed per urethra into the bladder. The bladder inspected was seen to be free of tumors and stones. Both right and left ureteral orifices were identified in the normal anatomic positions. The left ureteral orifice was cannulated using a 0.38 Macanese sensor wire. A 5 [place] open-end ureteral catheter was passed over this wire and into the left ureter. The wire was removed and a left pyelogram was performed. The stone was seen to be obstructing the left distal ureter. It was radiopaque. A 6 [place] by 24 cm left ureteral stent with no string was then passed over the wire and under fluoroscopic guidance in the left renal pelvis. The wire was removed leaving a good curl in the left renal pelvis and a good curl in the bladder. There was no significant hydronephrosis on the left. I saw only mildly cloudy urine emanate from the stent without ginger pus. Attention was directed to the right ureteral orifice. This 1 was more difficult to access due to the patient's contracture. Using the open ureteral catheter with an angled tipped Glidewire I was able to manipulate the ankle to Glidewire through the right ureteral orifice and under fluoroscopic guidance into the right renal pelvis. The open ureteral catheter was passed over the wire and the wire was removed. A right retrograde pyelogram was performed. The wire was then replaced and the open ureteral catheter was removed. A 6 [place] by 24 cm right ureteral stent with no string was then passed over the wire and under fluoroscopic guidance into the right renal pelvis. The wire was removed leaving a good curl in the right renal pelvis and a good curl in the bladder. The bladder was then irrigated and drained. The cystoscope was removed. Lidocaine jelly was placed in the urethra and the bladder. I then passed an 18 [place] Belt[place] catheter per urethra into the bladder. The balloon was inflated with 10 mL of sterile water. I passed some contrast into the catheter just to ensure it was in the proper position and it was. The catheter irrigated well. It was then placed to gravity drainage. The patient was then returned to the spine position. He was returned to the recovery room in critical condition.
--- NOTE | 2023-03-19 09:25 | XRay Report ---
INDICATION: surgical procedure TECHNIQUE: Intraoperative fluoroscopy and spot films utilized by Dr. Maria. 1.7 minutes fluoroscopy and 8.76 mGy exposure used. Left ureteral stent was placed IMPRESSION: Intraoperative fluoroscopy and spot films Interpreted and Authenticated by: Lalito Dao 03/19/23
[2023-03-19 09:26] LABS: Basophils # (Auto) 0.01 K/mcL (0.00-0.30); Basophils % (Auto) 0.1 % (0.0-2.0); Eosinophils # (Auto) 0.01 K/mcL (0.00-0.70); Eosinophils % (Auto) 0.1 % (0.0-7.0); Hematocrit 28.9 % (40.1-51.0); Hemoglobin 9.7 g/dL (13.7-17.5); Lymphocytes # (Auto) 0.46 K/mcL (1.50-4.80); Lymphocytes % (Auto) 2.7 % (15.5-49.0); Mean Cell Volume 113.3 fL (80.0-100.0); Mean Corpuscular HGB Conc 33.6 g/dL (31.0-36.0); Monocytes # (Auto) 0.16 K/mcL (0.10-0.90); Neutrophils % (Auto) 95.2 % (38.0-78.0); Platelet Count 61 K/mcL (140-440); RBC 2.55 M/mcL (4.63-6.08); Red Cell Distribution Width 13.8 % (11.5-14.5)
[2023-03-19 09:51] LABS: Partial Thromboplastin Time 51.8 sec (20.0-37.0)
[2023-03-19 09:53] LABS: Prothrombin Time 23.4 sec (11.9-14.5)
[2023-03-19 10:07] LABS: Blood Urea Nitrogen 11 mg/dL (6-20); Carbon Dioxide 14 mmol/L (22-30); Chloride 111 mmol/L (96-108); Glomerular Filtration Rate 96; Glucose 93 mg/dL (70-105)
[2023-03-19] MEDS ORDERED: [UNRECOGNIZED DRUG - OTHER] PO PRN (10:07)
[2023-03-19] MEDS ORDERED: VANCOMYCIN PER PHARMACY IV SCH (10:07)
[2023-03-19] MEDS ORDERED: FAMOTIDINE/PF 20 MG/2 ML VIAL IV SCH (10:07)
[2023-03-19] MEDS ORDERED: BACLOFEN 10 MG TABLET PO PRN (10:07)
[2023-03-19] MEDS ORDERED: ACETAMINOPHEN 325 MG TABLET PO PRN (10:07)
[2023-03-19] MEDS ORDERED: POTASSIUM CHLORIDE 40 MEQ in DEXTROSE 5% IN WATER 500 ML IV SCH ×3 (10:14→16:00)
[2023-03-19] MEDS: FLUTICASONE PROPIONATE SPRAY.NAS NS SCH (10:20)
[2023-03-19 10:21] LABS: WBC 16.8 K/mcL (4.5-11.0)
[2023-03-19] MEDS ORDERED: OMEPRAZOLE 20 MG CAPSULE PO SCH (10:30)
[2023-03-19] MEDS ORDERED: PROMETHAZINE HCL/CODEINE 1 ML SYRUP PO PRN (10:53)
[2023-03-19] MEDS ORDERED: SODIUM BICARBONATE 50 MEQ/50 ML VIAL IV SCH (10:54)
--- NOTE | 2023-03-19 11:01 | Internal Med Progress Note ---
SUBJECTIVE Subjective Patient information: Note initiated : 03/19/23 at 10:53 am Service Date, if different from initiated Date: [] Patient: Ej Kimble 18 y/o M admitted on 03/19/23 for fever. Chief Complaint: [] Additional PMFSH (Level 3 Only): Patient seen and examined multiple times. He is status post bilateral ureteral stent placement. He received 6 L of crystalloids during surgery and blood pressure improved however still requires Levophed at 5 mcg/hr, patient is now intubated, on ventilator. We will start him on propofol and as needed fentanyl. Discussed in detail case with anesthesia and with urology. Patient repeat ABGs showed improved pH however lactic acid is elevated from before, his blood pressure is stable there may be a lag. We will repeat ABG later. Will obtain chest x-ray to see if he has pulmonary edema and to evaluate for any possible ARDS. Critical care time 50 minutes Constitutional Vitals: Vital Signs Temp Pulse Resp BP Pulse Ox O2 Del Method 100.9 F H 60 11 L 60/30 98 Mechanical Ventilation 03/19/23 07:40 03/19/23 10:31 03/19/23 10:31 03/19/23 10:19 03/19/23 10:31 03/19/23 10:31 Period Temp Pulse Resp BP Sys/Michael Pulse Ox O2 Del Method O2 Flow Rate Last 24 Hr 100.9 F-103.3 F 56-160 11-41 60-151/30-132 92-100 Mechanical Ventilation-Room Air Intake and Output 03/18/23 03/19/23 03/19/23 19:59 03:59 11:59 Intake Total 1864 1829 Balance 1864 1829 Weight 37.421 kg Intake & Output: Intake & Output 03/18/23 03/19/23 03/19/23 19:59 03:59 11:59 Intake Total 1864 1829 Balance 1864 1829 Weight 37.421 kg Intake: IV 1864 1829 Sodium Chloride 0.9% 250 ml @ 30 20 mls/hr IV .[id number] KATIE Rx#: [id number] Sodium Chloride 0.9% 500 ml @ 1500 500 Wide Open IV BOLUS ONE Rx#: [id number] Lactated Ringers 1,000 ml @ 100 1000 mls/hr IV .Q10H KATIE Rx#: [id number] Levophed 8 mg In Sodium 40 Chloride 0.9% 242 ml @ 10 MCG/ MIN 18.75 mls/hr IV Q14H [facility] Rx #:[id number] Zosyn 3.375 gm In Dextrose 5% 50 in Water 50 ml @ 100 mls/hr IV ONCE ONE Rx#:[id number] Potassium Chloride 20 Meq In 260 Dextrose 5% in Water 250 ml @ 130 mls/hr IV ONCE ONE Rx#: [id number] Vancomycin 750 mg In Sodium 250 Chloride 0.9% 250 ml @ 250 mls/ hr IV ONCE ONE Rx#:[id number] Other: Urine Appearance Uretheral (Beltre) Clear Urine Color Uretheral (Beltre) Yellow Urine Odor Uretheral (Beltre) Normal OBJ DATA Labs 03/19/23 08:37 03/19/23 08:36 Labs: Abnormal Lab Results 03/19/23 03/19/23 03/19/23 10:36 08:49 08:49 WBC RBC Hgb Hct MCV MCH Plt Count Immature Gran % (Auto) Neut % (Auto) Lymph % (Auto) [place] % (Auto) Lymph # (Auto) [place] # (Auto) Immature Gran # Absolute Neutrophils PT 23.4 H INR 2.0 H APTT 51.8 H D-Dimer 8.28 H POC pH 7.28 L POC pCO2 32.6 L POC HCO3 15.3 L POC Total CO2 16.0 L POC ABG Base Excess -11.0 L ABG Lactic Acid 6.6 H* POC VBG pH POC VBG pCO2 at Temp POC VBG pO2 POC VBG HCO3 POC VBG Total CO2 POC Venous O2 Sat POC VBG Base Excess VBG Lactic Acid POC Potassium Potassium Chloride Carbon Dioxide POC WB Ioniz Calcium Ionized Calcium Kristal Procalcitonin Urine Appearance Urine Protein Urine RBC Urine WBC Urine Mucus 03/19/23 03/19/23 03/19/23 08:38 08:37 08:36 WBC 16.8 H RBC 2.55 L Hgb 9.7 L Hct 28.9 L MCV 113.3 H MCH 38.0 H Plt Count 61 L Immature Gran % (Auto) 0.9 H Neut % (Auto) 95.2 H Lymph % (Auto) 2.7 L [place] % (Auto) Lymph # (Auto) 0.46 L [place] # (Auto) Immature Gran # 0.15 H Absolute Neutrophils 15.97 H PT INR APTT D-Dimer POC pH POC pCO2 POC HCO3 POC Total CO2 POC ABG Base Excess ABG Lactic Acid POC VBG pH POC VBG pCO2 at Temp POC VBG pO2 POC VBG HCO3 POC VBG Total CO2 POC Venous O2 Sat POC VBG Base Excess VBG Lactic Acid 6.5 H* POC Potassium Potassium 2.9 L* Chloride 111 H Carbon Dioxide 14 L POC WB Ioniz Calcium Ionized Calcium Kristal 0.95 L Procalcitonin Urine Appearance Urine Protein Urine RBC Urine WBC Urine Mucus 03/19/23 03/19/23 03/19/23 06:20 05:28 02:58 WBC RBC Hgb Hct MCV MCH Plt Count Immature Gran % (Auto) Neut % (Auto) Lymph % (Auto) [place] % (Auto) Lymph # (Auto) [place] # (Auto) Immature Gran # Absolute Neutrophils PT INR APTT D-Dimer POC pH POC pCO2 POC HCO3 POC Total CO2 POC ABG Base Excess ABG Lactic Acid POC VBG pH POC VBG pCO2 at Temp POC VBG pO2 POC VBG HCO3 POC VBG Total CO2 POC Venous O2 Sat POC VBG Base Excess VBG Lactic Acid 5.8 H* 4.6 H* POC Potassium Potassium Chloride Carbon Dioxide POC WB Ioniz Calcium Ionized Calcium Kristal Procalcitonin Urine Appearance Hazy A Urine Protein 100 A Urine RBC 7 H Urine WBC 8 H Urine Mucus Few A 03/19/23 03/19/23 03/19/23 02:01 00:04 00:04 WBC RBC Hgb Hct MCV MCH Plt Count Immature Gran % (Auto) Neut % (Auto) Lymph % (Auto) [place] % (Auto) Lymph # (Auto) [place] # (Auto) Immature Gran # Absolute Neutrophils PT INR APTT D-Dimer POC pH POC pCO2 POC HCO3 POC Total CO2 POC ABG Base Excess ABG Lactic Acid POC VBG pH POC VBG pCO2 at Temp 30.3 L POC VBG pO2 POC VBG HCO3 19.4 L POC VBG Total CO2 20.0 L POC Venous O2 Sat POC VBG Base Excess -5.0 L VBG Lactic Acid 4.2 H* POC Potassium Potassium 2.9 L* Chloride Carbon Dioxide POC WB Ioniz Calcium Ionized Calcium Kristal Procalcitonin 3.47 H Urine Appearance Urine Protein Urine RBC Urine WBC Urine Mucus 03/19/23 03/18/23 03/18/23 00:04 23:45 23:44 WBC 3.4 L RBC 3.78 L Hgb Hct MCV 110.3 H MCH 38.1 H Plt Count 119 L Immature Gran % (Auto) 0.9 H Neut % (Auto) 84.8 H Lymph % (Auto) 13.1 L [place] % (Auto) 0.9 L Lymph # (Auto) 0.44 L [place] # (Auto) 0.03 L Immature Gran # Absolute Neutrophils PT INR APTT D-Dimer POC pH POC pCO2 POC HCO3 POC Total CO2 POC ABG Base Excess ABG Lactic Acid POC VBG pH 7.30 L POC VBG pCO2 at Temp 57.6 H POC VBG pO2 19 L POC VBG HCO3 28.4 H POC VBG Total CO2 30.0 H POC Venous O2 Sat 24.0 L POC VBG Base Excess VBG Lactic Acid 4.8 H* POC Potassium 7.3 H* Potassium Chloride Carbon Dioxide POC WB Ioniz Calcium 1.02 L Ionized Calcium Kristal Procalcitonin Urine Appearance Urine Protein Urine RBC Urine WBC Urine Mucus Meds: Medications Acetaminophen (Acetaminophen 325 Mg Tablet) 650 mg PO Q4-6HP PRN; Protocol PRN Reason: Per Pain Protocol/Fever > 101 Albuterol Sulfate (Albuterol Sulfate 2.5 Mg/3 Ml Nebulizer) 2.5 mg NEB Q4 KATIE Baclofen (Baclofen 10 Mg Tablet) 10 mg PO TIDP PRN PRN Reason: Pain Famotidine (Famotidine/Pf 20 Mg/2 Ml Vial) 20 mg IV Q12 KATIE Last Admin: 03/19/23 10:22 Dose: 20 mg Fluticasone Propionate (Fluticasone Propionate [place].Man) 2 spray NS DAILY KATIE Last Admin: 03/19/23 10:20 Dose: Not Given Norepinephrine Bitartrate 8 mg (/ Sodium Chloride) 250 mls @ 18.75 mls/hr IV Q14H KATIE; Protocol Last Titration: 03/19/23 07:30 Dose: 0 mcg/min, 0 mls/hr Sodium Chloride (Sodium Chloride 0.9%) 250 mls @ 20 mls/hr IV .[id number] KATIE Last Infusion: 03/19/23 07:30 Dose: 0 mls/hr Lactated Ringer's (Lactated Ringers) 1,000 mls @ 100 mls/hr IV .Q10H KATIE Last Infusion: 03/19/23 07:29 Dose: Infused Albumin Human (Buminate) 25 gm in 100 mls @ 200 mls/hr IV ONCE KATIE Stop: 03/19/23 12:00 Last Admin: 03/19/23 10:20 Dose: 200 mls/hr Piperacillin Sod/Tazobactam (Sod 3.375 gm/ Dextrose) 50 mls @ 100 mls/hr IV Q6H KATIE; Protocol Vasopressin 20 unit/ Dextrose 100 mls @ 6 mls/hr IV Q17H KATIE; Protocol Potassium Chloride 40 meq/ (Dextrose) 520 mls @ 130 mls/hr IV ONCE KATIE Stop: 03/19/23 15:00 Potassium Chloride 40 meq/ (Dextrose) 520 mls @ 86.667 mls/hr IV ONCE KATIE Stop: 03/19/23 16:00 Vancomycin HCl 750 mg/ Sodium (Chloride) 250 mls @ 250 mls/hr IV Q24H KATIE Propofol 1,000 mg/ Premix 100 mls @ 1.123 mls/hr IV .Q24H KATIE; Protocol Non-Formulary Medication (Promethazine-Codeine) 5 ml PO Q4H PRN PRN Reason: Cough Omeprazole (Omeprazole 20 Mg Capsule) 20 mg PO ACB KATIE Ondansetron HCl (Ondansetron 4 Mg/2 Ml Vial) 4 mg IV Q4-6HP PRN; Protocol PRN Reason: Nausea And Vomiting Prednisone (Prednisone 5 Mg Tablet) 5 mg PO 1HRACBID KATIE Sodium Chloride (0.9 % Sodium Chloride 10 Ml Syringe) 10 ml IV Q8 KATIE Vancomycin HCl (Vancomycin Per Pharmacy) 1 order IV UD KATIE; Protocol A/P Time Spent With Patient Time: Total time spent is greater than 50% in coordination of care (as documented) at patient's floor/unit and/or counseling patient:
[2023-03-19] MEDS: PROPOFOL 1,000 MG in PREMIX 1 BAG IV SCH (11:15)
[2023-03-19] MEDS: ALBUTEROL SULFATE 2.5 MG/3 ML NEBULIZER NEB SCH ×4 (11:16→23:45)
--- NOTE | 2023-03-19 11:18 | XRay Report ---
INDICATION: Et tube placement endotracheal tube and esophagogastric tube placement TECHNIQUE: AP portable supine chest x-ray. AP portable supine upper abdomen COMPARISON: Previous chest x-ray dated 03/19/2023 FINDINGS: Esophagogastric tube tip is in the proximal stomach. The sidehole of the catheter is below the level of the diaphragm. Incidental note is made of interval placement of bilateral ureteral stents Endotracheal tube tip is at the thoracic inlet, 4.5 cm above the avel. Lungs are suboptimally expanded on this supine radiograph. There are bilateral pulmonary parenchymal infiltrates which appear new since preoperative evaluation dated 03/19/2023. Aspiration is possible. Follow-up radiographs are recommended IMPRESSION: 1. Endotracheal tube tip at the thoracic inlet 2. Esophagogastric tube tip in the proximal stomach 3. Bilateral pulmonary parenchymal infiltrates. Aspiration pneumonia is possible Interpreted and Authenticated by: Lalito Dao 03/19/23
[2023-03-19] MEDS ORDERED: SODIUM BICARBONATE VIAL 50 MEQ in EMPTYBAG 0 ML IV SCH (11:30)
[2023-03-19 11:57] LABS: Basophils # (Auto) 0.03 K/mcL (0.00-0.30); Basophils % (Auto) 0.1 % (0.0-2.0); Eosinophils # (Auto) 0.01 K/mcL (0.00-0.70); Eosinophils % (Auto) 0 % (0.0-7.0); Hematocrit 36.4 % (40.1-51.0); Hemoglobin 12.2 g/dL (13.7-17.5); Lymphocytes # (Auto) 0.36 K/mcL (1.50-4.80); Lymphocytes % (Auto) 1.5 % (15.5-49.0); Mean Cell Volume 115.6 fL (80.0-100.0); Mean Corpuscular HGB Conc 33.5 g/dL (31.0-36.0); Mean Platelet Volume 12.5 fL (8.8-12.5); Monocytes # (Auto) 0.21 K/mcL (0.10-0.90); Monocytes % (Auto) 0.9 % (1.0-12.0); Platelet Count 87 K/mcL (140-440); RBC 3.15 M/mcL (4.63-6.08); Red Cell Distribution Width 14.4 % (11.5-14.5); WBC 24.5 K/mcL (4.5-11.0)
[2023-03-19 12:03] LABS: ALT/SGPT 38 U/L (<40); AST/SGOT 57 U/L (<40); Albumin 2.6 gm/dL (3.2-5.2); Albumin/Globulin Ratio 1.6 (1.0-2.3); Alkaline Phosphatase 78 U/L (39-117); Bilirubin,Total 1.6 mg/dL (0.1-1.0); Blood Urea Nitrogen 10 mg/dL (6-20); Calcium 7.7 mg/dL (8.6-10.4); Carbon Dioxide 16 mmol/L (22-30); Chloride 108 mmol/L (96-108); Globulin 1.6 gm/dL (2.2-3.7); Glomerular Filtration Rate 96; Glucose 70 mg/dL (70-105)
[2023-03-19] MEDS: VASOPRESSIN 20 UNIT in DEXTROSE 5% IN WATER 99 ML IV SCH (12:53)
[2023-03-19] MEDS: PIPERACILLIN SODIUM/TAZOBACTAM 3.375 GM in DEXTROSE 5% IN WATER 50 ML IV SCH ×3 (12:55→23:53)
[2023-03-19] MEDS: 0.9 % SODIUM CHLORIDE 10 ML SYRINGE IV SCH ×3 (13:19→20:17)
[2023-03-19] MEDS: ACETAMINOPHEN 650 MG/65 ML BAG IV PRN (15:03)
[2023-03-19 15:17] LABS: Blood Urea Nitrogen 11 mg/dL (6-20); Calcium 7.4 mg/dL (8.6-10.4); Carbon Dioxide 15 mmol/L (22-30); Chloride 108 mmol/L (96-108); Glomerular Filtration Rate 87; Glucose 188 mg/dL (70-105)
[2023-03-19] MEDS: SODIUM BICARBONATE VIAL 150 MEQ in DEXTROSE 5% IN WATER 850 ML IV SCH (15:43)
[2023-03-19] MEDS ORDERED: predniSONE 5 MG TABLET PO SCH (16:30)
--- NOTE | 2023-03-19 17:08 | XRay Report ---
INDICATION: central line and esophageal probe placement TECHNIQUE: AP portable supine chest x-ray COMPARISON: None FINDINGS: Right-sided central venous catheter with its tip in appropriate position for superior vena cava. No pneumothorax identified on this supine radiograph Endotracheal tube tip at the thoracic inlet Esophagogastric tube with its tip in the stomach There are bilateral ureteral stent catheters There is a moderate right pleural effusion which is new since previous examinations. There are diffuse right-sided infiltrates. Left lung is essentially clear. Infiltrates may be due to pneumonia. Asymmetric pulmonary edema is possible. Clinical correlation follow-up radiographs recommended. IMPRESSION: 1. Right central venous catheter in appropriate position for superior vena cava. No detectable pneumothorax on this supine radiograph 2. Endotracheal tube and esophagogastric tube are unchanged as described above 3. Diffuse right-sided infiltrates and right pleural effusion. Findings may be due to pneumonia or asymmetric pulmonary edema Interpreted and Authenticated by: Lalito Dao 03/19/23
[2023-03-19 17:21] LABS: ALT/SGPT 39 U/L (<40); AST/SGOT 65 U/L (<40); Albumin 2.6 gm/dL (3.2-5.2); Albumin/Globulin Ratio 1.6 (1.0-2.3); Alkaline Phosphatase 50 U/L (39-117); Bilirubin,Total 2.2 mg/dL (0.1-1.0); Blood Urea Nitrogen 11 mg/dL (6-20); Calcium 7.8 mg/dL (8.6-10.4); Carbon Dioxide 17 mmol/L (22-30); Chloride 107 mmol/L (96-108); Globulin 1.6 gm/dL (2.2-3.7); Glomerular Filtration Rate 87; Glucose 223 mg/dL (70-105)
[2023-03-19] MEDS ORDERED: FUROSEMIDE 20 MG/2 ML VIAL IV ONE (18:04)
[2023-03-19] MEDS ORDERED: fentaNYL 50 ML ONE (19:18)
[2023-03-19 20:55] LABS: Blood Urea Nitrogen 10 mg/dL (6-20); Calcium 6.8 mg/dL (8.6-10.4); Carbon Dioxide 18 mmol/L (22-30); Chloride 108 mmol/L (96-108); Glomerular Filtration Rate 108; Glucose 258 mg/dL (70-105)
[2023-03-19] MEDS: fentaNYL 2,500 MCG in 0.9 % SODIUM CHLORIDE 200 ML IV SCH (23:52)
[2023-03-20] MEDS ORDERED: NOREPINEPHRINE BITARTRATE 4 MG/4 ML VIAL IV ONE (02:33)
[2023-03-20] MEDS: NOREPINEPHRINE BITARTRATE 8 MG in 0.9 % SODIUM CHLORIDE 242 ML IV SCH ×3 (03:26→18:03)
[2023-03-20] MEDS: VASOPRESSIN 20 UNIT in DEXTROSE 5% IN WATER 99 ML IV SCH (03:27)
[2023-03-20] MEDS: ALBUTEROL SULFATE 2.5 MG/3 ML NEBULIZER NEB SCH ×6 (04:24→23:04)
[2023-03-20] MEDS: 0.9 % SODIUM CHLORIDE 10 ML SYRINGE IV SCH ×6 (04:57→21:17)
[2023-03-20] MEDS: PIPERACILLIN SODIUM/TAZOBACTAM 3.375 GM in DEXTROSE 5% IN WATER 50 ML IV SCH ×3 (05:39→18:05)
--- NOTE | 2023-03-20 06:05 | Ultrasound Report ---
INDICATION: Hyperbilirubinemia, sepsis, r/o cholecystitis TECHNIQUE: Grayscale and color flow Doppler spectral imaging COMPARISON: Abdominal CT scan dated 03/19/2023 FINDINGS: Limited evaluation as this patient could not move. The patient was on a ventilator. Gallbladder:Possible subtle tiny calculi in the dependent portion of the gallbladder lumen. This is not considered definite. There is a small amount of pericholecystic fluid which is probably ascites. Small amount of fluid is identified adjacent to the liver. Gallbladder wall measures 4 mm. This is nonspecific Common bile duct:No intra or extrahepatic bile duct dilatation.. Common bile duct measures4 mm IMPRESSION: 1. Possible tiny stones in the dependent portion of the gallbladder. This finding is not definite 2. Mild nonspecific gallbladder wall thickening. Pericholecystic and perihepatic fluid consistent with ascites Interpreted and Authenticated by: Lalito Dao 03/20/23
[2023-03-20 06:40] LABS: ALT/SGPT 40 U/L (<40); AST/SGOT 53 U/L (<40); Albumin 2.3 gm/dL (3.2-5.2); Albumin/Globulin Ratio 1.4 (1.0-2.3); Alkaline Phosphatase 53 U/L (39-117); Basophils # (Auto) 0.02 K/mcL (0.00-0.30); Basophils % (Auto) 0.1 % (0.0-2.0); Bilirubin,Total 2.2 mg/dL (0.1-1.0); Blood Urea Nitrogen 11 mg/dL (6-20); Carbon Dioxide 21 mmol/L (22-30); Chloride 108 mmol/L (96-108); Eosinophils # (Auto) 0.02 K/mcL (0.00-0.70); Eosinophils % (Auto) 0.1 % (0.0-7.0); Globulin 1.6 gm/dL (2.2-3.7); Glomerular Filtration Rate 123; Glucose 163 mg/dL (70-105); Hematocrit 31.6 % (40.1-51.0); Hemoglobin 11.3 g/dL (13.7-17.5); Lymphocytes # (Auto) 2.69 K/mcL (1.50-4.80); Mean Cell Volume 106.4 fL (80.0-100.0); Mean Corpuscular HGB Conc 35.8 g/dL (31.0-36.0); Mean Platelet Volume 13.5 fL (8.8-12.5); Monocytes # (Auto) 0.53 K/mcL (0.10-0.90); Monocytes % (Auto) 1.4 % (1.0-12.0); Neutrophils % (Auto) 86.7 % (38.0-78.0); Platelet Count 54 K/mcL (140-440); RBC 2.97 M/mcL (4.63-6.08); Red Cell Distribution Width 13.6 % (11.5-14.5); WBC 38.2 K/mcL (4.5-11.0)
[2023-03-20] MEDS ORDERED: POTASSIUM CHLORIDE 20 MEQ PACKET PO SCH ×2 (07:07→11:00)
[2023-03-20] MEDS: PROPOFOL 1,000 MG in PREMIX 1 BAG IV SCH (07:31)
[2023-03-20] MEDS: PANTOPRAZOLE 40 MG VIAL IV SCH (07:33)
[2023-03-20 07:47] LABS: Phosphorous 1.3 mg/dL (2.5-4.5)
[2023-03-20] MEDS ORDERED: POTASSIUM CHLORIDE 40 MEQ in DEXTROSE 5% IN WATER 250 ML IV SCH ×2 (08:00→13:00)
[2023-03-20] MEDS: FLUTICASONE PROPIONATE SPRAY.NAS NS SCH (08:31)
[2023-03-20] MEDS: VANCOMYCIN 750 MG in 0.9 % SODIUM CHLORIDE 250 ML IV SCH (09:43)
[2023-03-20] MEDS: ACETAMINOPHEN 650 MG/65 ML BAG IV PRN (10:25)
--- NOTE | 2023-03-20 10:33 | Ultrasound Report ---
INDICATION: s/p ureteral placement, r/o obstruction TECHNIQUE: Grayscale and color flow Doppler spectral imaging. COMPARISON: Previous CT scan dated 03/19/2023 FINDINGS: Right kidney: Right kidney measures8.7 x 4.4 x 4.1 cm. There is no hydronephrosis. No solid or cystic mass. The right renal pelvis stone identified on CT scan is not well-visualized presently. Left kidney: Left kidney measures8.0 x 4.1 x 3.8 cm. Interval resolution of hydronephrosis. No significant dilatation of the left renal collecting system on present examination. There are nonobstructing calculi in the left kidney. Left ureteral stent is not visualized. Bladder: There is a [place] catheter within the urinary bladder. Bladder is not evaluated IMPRESSION: 1. Interval resolution of left hydronephrosis. No significant hydronephrosis at this time 2. Nonobstructing calculi in the left kidney. Interpreted and Authenticated by: Lalito Dao 03/20/23
[2023-03-20] MEDS: CHLORHEXIDINE GLUCONATE 1 ML ORAL.SOL SWABMOUTH SCH ×2 (10:53→21:16)
[2023-03-20] MEDS: 0.9 % SODIUM CHLORIDE 250 ML IV SCH (11:00)
[2023-03-20] MEDS ORDERED: MAGNESIUM SULFATE 4 GM/100 ML BAG IV ONE (11:00)
--- NOTE | 2023-03-20 11:59 | XRay Report ---
INDICATION: Mechanically Ventilated TECHNIQUE: AP portable supine chest x-ray COMPARISON: Previous examinations dated 03/19/2023 FINDINGS: Endotracheal tube at the thoracic inlet, unchanged Esophagogastric tube in the proximal stomach Right central venous catheter in appropriate position for superior vena cava Left lung is negative. No focal pulmonary parenchymal infiltrate. There is right pleural fluid. There is right upper lobe volume loss or pneumonia. Mild left basilar infiltrate. Overall appearance is improved since 03/19/2023, 1645 IMPRESSION: 1. Right pleural fluid and infiltrates 2. Interval improvement Interpreted and Authenticated by: Lalito Dao 03/20/23
[2023-03-20] MEDS: SODIUM BICARBONATE VIAL 150 MEQ in DEXTROSE 5% IN WATER 850 ML IV SCH (12:33)
[2023-03-20] MEDS ORDERED: POTASSIUM PHOSPHATE 40 MEQ in DEXTROSE 5% IN WATER 500 ML IV ONE (13:00)
[2023-03-20 15:29] LABS: Basophils # (Auto) 0.07 K/mcL (0.00-0.30); Basophils % (Auto) 0.3 % (0.0-2.0); Eosinophils # (Auto) 0.05 K/mcL (0.00-0.70); Eosinophils % (Auto) 0.2 % (0.0-7.0); Hematocrit 29.5 % (40.1-51.0); Hemoglobin 10.6 g/dL (13.7-17.5); Lymphocytes # (Auto) 2.65 K/mcL (1.50-4.80); Lymphocytes % (Auto) 10.1 % (15.5-49.0); Mean Cell Volume 108.5 fL (80.0-100.0); Mean Corpuscular HGB Conc 35.9 g/dL (31.0-36.0); Monocytes # (Auto) 0.55 K/mcL (0.10-0.90); Monocytes % (Auto) 2.1 % (1.0-12.0); Neutrophils % (Auto) 82.5 % (38.0-78.0); Platelet Count 37 K/mcL (140-440); RBC 2.72 M/mcL (4.63-6.08); Red Cell Distribution Width 14.2 % (11.5-14.5); WBC 26.3 K/mcL (4.5-11.0)
--- NOTE | 2023-03-20 15:35 | Internal Med Progress Note ---
SUBJECTIVE Subjective Patient information: Note initiated : 03/20/23 at 3:34 pm Service Date, if different from initiated Date: [] Patient: Ej Kimble 18 y/o M admitted on 03/19/23 for fever. Chief Complaint: [] Additional PMFSH (Level 3 Only): Patient is a 18 years old male with history of asthma/reactive airway disease, cerebral palsy, developmental delay, noncommunicative, wheelchair-bound, herpes type II, presented acute onset vomiting, nausea, fever and loose stool. His mother is the main caregiver and contributed to the history. She reported that patient was in normal state of health when suddenly he started vomiting x3, he t ensed up his body as if he was in distress. Mother touched patient's for her and it was quite warm to touch, but did not check his temperature. She reported patient had UTI a month ago and was treated with antibiotic. She reports patient does aspirate and is on pured diet. 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 On presentation patient was hypotensive BP 75/39, tachycardia 127 bpm, tachypneic respiratory rate 29, fever 103.3. CBC showed WBC 3.4, hemoglobin 14.4, will lactic acid 4.8, potassium 2.9, procalcitonin 3.47. UA still pending. CT abdomen and pelvis with contrast showed nonobstructing renal calculi bilaterally, obstructing stone in the left mid ureter measuring 10 x 8 x 14 mm, left hydronephrosis and hydroureter. Pyonephrosis is possible. Chest x-ray was unremarkable. EKG showed sinus tachycardia with a rate of 142, normal axis, AR of 97, QRS of 100, QTc of 382, T wave flattening in aVL, and absence of ST elevation or depression. Patient was seen with Dr. Maria from urology and with anesthesiologist in preop room. He remains hypotensive requiring vasopressor and fluid resuscitation. 03/20. Patient is status post bilateral ureteral stent placement, he received 6 L of crystalloids during procedure however became hypotensive. Patient was intubated on Levophed, propofol, fentanyl. Lactic acid was rising however now improving. Renal ultrasound ordered. Abdominal ultrasound ordered. Review of system Constitutional: Denies fever or weakness Eyes: Denies eye pain or vision change ENT ED: Denies throat pain, hearing loss or rhinorrhea Cardiovascular: Denies chest pain, dyspnea on exertion, orthopnea or edema Respiratory: Denies shortness of breath or cough Gastrointestinal: Positive for nausea, vomiting and loose stool Genitourinary: Denies dysuria, frequency, hematuria or incontinence Musculoskeletal: Denies back pain or myalgia Integumentary: Denies rash or lesions Neurological: Denies headache, weakness, numbness, confusion, abnormal gait or dizziness Psychiatric: Denies anxiety, suicidal thoughts or homicidal thoughts Endocrine: Denies fatigue or polyuria Hematological/Lymphatic: Denies easy bleeding or easy bruising Physical examination General appearance: Remains sedated on vent Head Head: Present normocephalic; Absent atraumatic Eye Eye: Present no scleral icterus ENT ENT: Present mucous membranes moist; Absent nasal congestion Neck Neck: Present full ROM; Absent tenderness Chest Chest: Present normal inspection, symmetric chest wall rise and tenderness Respiratory Respiratory: Present on ventilator Cardiovascular Cardiovascular: Present regular rate, normal rhythm and normal heart sounds Adbominal Abdominal: Present soft and normal bowel sounds; Absent distention or tenderness Rectal Rectal: Present deferred Extremities Extremities: Present normal inspection and full ROM; Absent tenderness Back Back: Present normal inspection and full ROM; Absent tenderness Neurological Neurological: Present sedated Psychiatric Psychiatric: Present no agitation Skin Skin: Present warm (WNL), dry and normal color Patient was admitted for severe sepsis with septic shock, UTI and renal calculi Assessment Severe sepsis with septic shock despite appropriate fluid resuscitation, requiring vasopressor, Severe lactic acidosis Urinary tract infection Bilateral renal calculi Obstructing left ureter stone measuring 10 x 8 x 14 mm Left hydronephrosis and hydroureter, status post bilateral ureteral stent placement Hypokalemia Reactive airway disease/asthma Cerebral palsy Developmental delay Noncommunicative Plan Continue Levophed, keep MAP around 70 Trend lactic acid for clearance Discussed with cycle liaison at [place], agreed to continue trending lactic acid and abdominal ultrasound to rule out pathology. No other recommendations Correct hypokalemia with p.o. and IV KCl Continue broad-spectrum antibiotics vancomycin and Zosyn Follow culture data DVT prophylaxis GI prophylaxis Full code Critical care time 80 minutes Constitutional Vitals: Vital Signs Temp Pulse Resp BP Pulse Ox O2 Del Method 97.5 F 53 L 12 91/53 100 Mechanical Ventilation 03/20/23 15:12 03/20/23 15:12 03/20/23 15:12 03/20/23 15:01 03/20/23 15:12 03/20/23 15:12 Period Temp Pulse Resp BP Sys/Michael Pulse Ox O2 Del Method O2 Flow Rate Last 24 Hr 97.5 F-102.8 F 53-145 7-25 65-122/35-83 30-100 Mechanical Shane tilation-Nasal Cannula Intake and Output 03/20/23 03/20/23 03/20/23 03:59 11:59 19:59 Intake Total 826 1590 925 Output Total 716 322 440 Balance 110 1268 485 Weight 39.916 kg 39.916 kg Patient Weight 03/21/23 03:59 Weight 39.916 kg Intake & Output: Intake & Output 03/20/23 03/20/23 03/20/23 03:59 11:59 19:59 Intake Total 826 1590 925 Output Total 716 322 440 Balance 110 1268 485 Weight 39.916 kg 39.916 kg Intake: IV 826 1410 745 Sodium Chloride 0.9% 250 ml @ 80 20 mls/hr IV .[id number] [facility] Rx#: [id number] Levophed 8 mg In Sodium 232 296 Chloride 0.9% 242 ml @ 10 MCG/ MIN 18.75 mls/hr IV Q14H [facility] Rx #:[id number] Zosyn 3.375 gm In Dextrose 5% 50 50 50 in Water 50 ml @ 100 mls/hr IV Q6H [facility] Rx#:[id number] Potassium Chloride 40 Meq In 270 Dextrose 5% in Water 250 ml @ 67.5 mls/hr IV ONCE [facility] Rx#: [id number] Potassium Chloride 40 Meq In 520 Dextrose 5% in Water 500 ml @ 130 mls/hr IV ONCE [facility] Rx#: [id number] Diprivan 1,000 mg In Premix 1 22 97 17 Bag @ 5 MCG/KG/MIN 1.123 mls/hr IV .Q24H [facility] Rx#:[id number] Sodium Bicarbonate Vial 150 Meq 840 In Dextrose 5% in Water 850 ml @ 50 mls/hr IV Q20H [facility] Rx#: [id number] Vancomycin 750 mg In Sodium 250 Chloride 0.9% 250 ml @ 250 mls/ hr IV Q24H [facility] Rx#:[id number] fentaNYL 2,500 MCG In Sodium 2 28 12 Chloride 0.9% 200 ml @ 25 MCG/ HR 2.5 mls/hr IV Q24H [facility] Rx#: [id number] Oral 0 0 Tube Feeding 0 0 0 GI Tube Flush 180 180 Output: Gastric Drainage 225 NG/OG 225 Urine Catheter Amount 491 322 440 Other: Urine Appearance Clear Clear Clear Uretheral (Beltre) Clear Clear Urine Color Yellow Dark Yellow Bright Yellow Uretheral (Beltre) Yellow Dark Yellow Stool Size Large Moderate Stool Color Yellow Brown Stool Consistency Liquid Liquid Watery Loose Loose # of times incontinent of 1 1 Bowels OBJ DATA Labs 03/21/23 06:00 03/21/23 06:00 Labs: Abnormal Lab Results 03/20/23 03/20/23 03/20/23 14:02 08:12 05:30 WBC 26.3 H RBC 2.72 L Hgb 10.6 L Hct 29.5 L MCV 108.5 H MCH 39.0 H Plt Count 37 L* MPV Immature Gran % (Auto) 4.8 H Neut % (Auto) 82.5 H Lymph % (Auto) 10.1 L [place] % (Auto) Lymph # (Auto) [place] # (Auto) Immature Gran # 1.25 H Absolute Neutrophils 21.69 H PT INR APTT D-Dimer POC pH 7.57 H POC pCO2 23.9 L* POC pO2 75 L POC HCO3 POC Total CO2 POC ABG Base Excess ABG Lactic Acid POC VBG pH POC VBG pCO2 at Temp POC VBG pO2 POC VBG HCO3 POC VBG Total CO2 POC Venous O2 Sat POC VBG Base Excess VBG Lactic Acid Hgb O2 Saturation POC Potassium Potassium Chloride Carbon Dioxide Glucose Calcium POC WB Ioniz Calcium Ionized Calcium Kristal Phosphorus Magnesium Total Bilirubin AST ALT Total Protein Albumin Globulin Procalcitonin 77.66 H Urine Appearance Urine Protein Urine RBC Urine WBC Urine Mucus 03/20/23 03/20/23 03/20/23 05:30 04:50 04:50 WBC 38.2 H* RBC 2.97 L Hgb 11.3 L Hct 31.6 L MCV 106.4 H MCH 38.0 H Plt Count 54 L MPV 13.5 H Immature Gran % (Auto) 4.7 H Neut % (Auto) 86.7 H Lymph % (Auto) 7.0 L [place] % (Auto) Lymph # (Auto) [place] # (Auto) Immature Gran # 1.78 H Absolute Neutrophils 33.12 H PT INR APTT D-Dimer POC pH POC pCO2 POC pO2 POC HCO3 POC Total CO2 POC ABG Base Excess ABG Lactic Acid POC VBG pH POC VBG pCO2 at Temp POC VBG pO2 POC VBG HCO3 POC VBG Total CO2 POC Venous O2 Sat POC VBG Base Excess VBG Lactic Acid Hgb O2 Saturation POC Potassium Potassium 2.6 L* Chloride Carbon Dioxide 21 L Glucose 163 H Calcium 7.0 L POC WB Ioniz Calcium Ionized Calcium Kristal Phosphorus 1.3 L Magnesium 1.4 L Total Bilirubin 2.2 H AST 53 H ALT 40 H Total Protein 3.9 L Albumin 2.3 L Globulin 1.6 L Procalcitonin Urine Appearance Urine Protein Urine RBC Urine WBC Urine Mucus 03/19/23 03/19/23 03/19/23 20:15 20:01 16:22 WBC RBC Hgb Hct MCV MCH Plt Count MPV Immature Gran % (Auto) Neut % (Auto) Lymph % (Auto) [place] % (Auto) Lymph # (Auto) [place] # (Auto) Immature Gran # Absolute Neutrophils PT INR APTT D-Dimer POC pH POC pCO2 27.7 L POC pO2 163 H POC HCO3 17.1 L POC Total CO2 18.0 L POC ABG Base Excess -8.0 L ABG Lactic Acid 4.0 H* POC VBG pH POC VBG pCO2 at Temp POC VBG pO2 POC VBG HCO3 POC VBG Total CO2 POC Venous O2 Sat POC VBG Base Excess VBG Lactic Acid Hgb O2 Saturation 100.0 H POC Potassium Potassium 3.1 L 3.1 L Chloride Carbon Dioxide 18 L 17 L Glucose 258 H 223 H Calcium 6.8 L 7.8 L POC WB Ioniz Calcium Ionized Calcium Kristal Phosphorus Magnesium Total Bilirubin 2.2 H AST 65 H ALT Total Protein 4.2 L Albumin 2.6 L Globulin 1.6 L Procalcitonin Urine Appearance Urine Protein Urine RBC Urine WBC Urine Mucus 03/19/23 03/19/23 03/19/23 14:18 14:06 10:40 WBC 24.5 H RBC 3.15 L Hgb 12.2 L Hct 36.4 L MCV 115.6 H MCH 38.7 H Plt Count 87 L MPV Immature Gran % (Auto) 1.5 H Neut % (Auto) 96.0 H Lymph % (Auto) 1.5 L [place] % (Auto) 0.9 L Lymph # (Auto) 0.36 L [place] # (Auto) Immature Gran # 0.37 H Absolute Neutrophils 23.54 H PT INR APTT D-Dimer POC pH 7.34 L POC pCO2 25.9 L POC pO2 151 H POC HCO3 14.1 L POC Total CO2 15.0 L POC ABG Base Excess -12.0 L ABG Lactic Acid 8.9 H* POC VBG pH POC VBG pCO2 at Temp POC VBG pO2 POC VBG HCO3 POC VBG Total CO2 POC Venous O2 Sat POC VBG Base Excess VBG Lactic Acid Hgb O2 Saturation 99.0 H POC Potassium Potassium 3.0 L Chloride Carbon Dioxide 15 L Glucose 188 H Calcium 7.4 L POC WB Ioniz Calcium Ionized Calcium Kristal Phosphorus Magnesium Total Bilirubin AST ALT Total Protein Albumin Globulin Procalcitonin Urine Appearance Urine Protein Urine RBC Urine WBC Urine Mucus 03/19/23 03/19/23 03/19/23 10:40 10:36 08:49 WBC RBC Hgb Hct MCV MCH Plt Count MPV Immature Gran % (Auto) Neut % (Auto) Lymph % (Auto) [place] % (Auto) Lymph # (Auto) [place] # (Auto) Immature Gran # Absolute Neutrophils PT INR APTT D-Dimer 8.28 H POC pH 7.28 L POC pCO2 32.6 L POC pO2 POC HCO3 15.3 L POC Total CO2 16.0 L POC ABG Base Excess -11.0 L ABG Lactic Acid 6.6 H* POC VBG pH POC VBG pCO2 at Temp POC VBG pO2 POC VBG HCO3 POC VBG Total CO2 POC Venous O2 Sat POC VBG Base Excess VBG Lactic Acid Hgb O2 Saturation POC Potassium Potassium 2.9 L* Chloride Carbon Dioxide 16 L Glucose Calcium 7.7 L POC WB Ioniz Calcium Ionized Calcium Kristal Phosphorus Magnesium Total Bilirubin 1.6 H AST 57 H ALT Total Protein 4.2 L Albumin 2.6 L Globulin 1.6 L Procalcitonin Urine Appearance Urine Protein Urine RBC Urine WBC Urine Mucus 03/19/23 03/19/23 03/19/23 08:49 08:38 08:37 WBC 16.8 H RBC 2.55 L Hgb 9.7 L Hct 28.9 L MCV 113.3 H MCH 38.0 H Plt Count 61 L MPV Immature Gran % (Auto) 0.9 H Neut % (Auto) 95.2 H Lymph % (Auto) 2.7 L [place] % (Auto) Lymph # (Auto) 0.46 L [place] # (Auto) Immature Gran # 0.15 H Absolute Neutrophils 15.97 H PT 23.4 H INR 2.0 H APTT 51.8 H D-Dimer POC pH POC pCO2 POC pO2 POC HCO3 POC Total CO2 POC ABG Base Excess ABG Lactic Acid POC VBG pH POC VBG pCO2 at Temp POC VBG pO2 POC VBG HCO3 POC VBG Total CO2 POC Venous O2 Sat POC VBG Base Excess VBG Lactic Acid 6.5 H* Hgb O2 Saturation POC Potassium Potassium Chloride Carbon Dioxide Glucose Calcium POC WB Ioniz Calcium Ionized Calcium Kristal Phosphorus Magnesium Total Bilirubin AST ALT Total Protein Albumin Globulin Procalcitonin Urine Appearance Urine Protein Urine RBC Urine WBC Urine Mucus 03/19/23 03/19/23 03/19/23 08:36 06:20 05:28 WBC RBC Hgb Hct MCV MCH Plt Count MPV Immature Gran % (Auto) Neut % (Auto) Lymph % (Auto) [place] % (Auto) Lymph # (Auto) [place] # (Auto) Immature Gran # Absolute Neutrophils PT INR APTT D-Dimer POC pH POC pCO2 POC pO2 POC HCO3 POC Total CO2 POC ABG Base Excess ABG Lactic Acid POC VBG pH POC VBG pCO2 at Temp POC VBG pO2 POC VBG HCO3 POC VBG Total CO2 POC Venous O2 Sat POC VBG Base Excess VBG Lactic Acid 5.8 H* Hgb O2 Saturation POC Potassium Potassium 2.9 L* Chloride 111 H Carbon Dioxide 14 L Glucose Calcium POC WB Ioniz Calcium Ionized Calcium Kristal 0.95 L Phosphorus Magnesium Total Bilirubin AST ALT Total Protein Albumin Globulin Procalcitonin Urine Appearance Hazy A Urine Protein 100 A Urine RBC 7 H Urine WBC 8 H Urine Mucus Few A 03/19/23 03/19/23 03/19/23 02:58 02:01 00:04 WBC RBC Hgb Hct MCV MCH Plt Count MPV Immature Gran % (Auto) Neut % (Auto) Lymph % (Auto) [place] % (Auto) Lymph # (Auto) [place] # (Auto) Immature Gran # Absolute Neutrophils PT INR APTT D-Dimer POC pH POC pCO2 POC pO2 POC HCO3 POC Total CO2 POC ABG Base Excess ABG Lactic Acid POC VBG pH POC VBG pCO2 at Temp 30.3 L POC VBG pO2 POC VBG HCO3 19.4 L POC VBG Total CO2 20.0 L POC Venous O2 Sat POC VBG Base Excess -5.0 L VBG Lactic Acid 4.6 H* 4.2 H* Hgb O2 Saturation POC Potassium Potassium 2.9 L* Chloride Carbon Dioxide Glucose Calcium POC WB Ioniz Calcium Ionized Calcium Kristal Phosphorus Magnesium Total Bilirubin AST ALT Total Protein Albumin Globulin Procalcitonin Urine Appearance Urine Protein Urine RBC Urine WBC Urine Mucus 03/19/23 03/19/23 03/18/23 00:04 00:04 23:45 WBC 3.4 L RBC 3.78 L Hgb Hct MCV 110.3 H MCH 38.1 H Plt Count 119 L MPV Immature Gran % (Auto) 0.9 H Neut % (Auto) 84.8 H Lymph % (Auto) 13.1 L [place] % (Auto) 0.9 L Lymph # (Auto) 0.44 L [place] # (Auto) 0.03 L Immature Gran # Absolute Neutrophils PT INR APTT D-Dimer POC pH POC pCO2 POC pO2 POC HCO3 POC Total CO2 POC ABG Base Excess ABG Lactic Acid POC VBG pH POC VBG pCO2 at Temp POC VBG pO2 POC VBG HCO3 POC VBG Total CO2 POC Venous O2 Sat POC VBG Base Excess VBG Lactic Acid Hgb O2 Saturation POC Potassium 7.3 H* Potassium Chloride Carbon Dioxide Glucose Calcium POC WB Ioniz Calcium 1.02 L Ionized Calcium Kristal Phosphorus Magnesium Total Bilirubin AST ALT Total Protein Albumin Globulin Procalcitonin 3.47 H Urine Appearance Urine Protein Urine RBC Urine WBC Urine Mucus 03/18/23 23:44 WBC RBC Hgb Hct MCV MCH Plt Count MPV Immature Gran % (Auto) Neut % (Auto) Lymph % (Auto) [place] % (Auto) Lymph # (Auto) [place] # (Auto) Immature Gran # Absolute Neutrophils PT INR APTT D-Dimer POC pH POC pCO2 POC pO2 POC HCO3 POC Total CO2 POC ABG Base Excess ABG Lactic Acid POC VBG pH 7.30 L POC VBG pCO2 at Temp 57.6 H POC VBG pO2 19 L POC VBG HCO3 28.4 H POC VBG Total CO2 30.0 H POC Venous O2 Sat 24.0 L POC VBG Base Excess VBG Lactic Acid 4.8 H* Hgb O2 Saturation POC Potassium Potassium Chloride Carbon Dioxide Glucose Calcium POC WB Ioniz Calcium Ionized Calcium Kristal Phosphorus Magnesium Total Bilirubin AST ALT Total Protein Albumin Globulin Procalcitonin Urine Appearance Urine Protein Urine RBC Urine WBC Urine Mucus Meds: Medications Acetaminophen (Acetaminophen 325 Mg Tablet) 650 mg PO Q4-6HP PRN; Protocol PRN Reason: Per Pain Protocol/Fever > 101 Albuterol Sulfate (Albuterol Sulfate 2.5 Mg/3 Ml Nebulizer) 2.5 mg NEB Q4 [facility] Last Admin: 03/20/23 15:29 Dose: 2.5 mg Baclofen (Baclofen 10 Mg Tablet) 10 mg PO TIDP PRN PRN Reason: Pain Chlorhexidine Gluconate (Chlorhexidine Gluconate 1 Ml Oral.Daniela) 15 ml SWABMOUTH BID [facility] Last Admin: 03/20/23 10:53 Dose: 15 ml Diagnostic Test (Pha) (Accu-Chek 1 Each Strip) 1 each FS Q4 [facility] Last Admin: 03/20/23 12:00 Dose: 1 each Fluticasone Propionate (Fluticasone Propionate [place].Man) 2 spray NS DAILY [facility] Last Admin: 03/20/23 08:31 Dose: Not Given Sodium Chloride (Sodium Chloride 0.9%) 250 mls @ 20 mls/hr IV .[id number] [facility] Last Admin: 03/20/23 11:00 Dose: 20 mls/hr Piperacillin Sod/Tazobactam (Sod 3.375 gm/ Dextrose) 50 mls @ 100 mls/hr IV Q6H [facility]; Protocol Last Infusion: 03/20/23 15:01 Dose: Infused Vasopressin 20 unit/ Dextrose 100 mls @ 6 mls/hr IV Q17H [facility]; Protocol Last Admin: 03/20/23 03:27 Dose: Not Given Vancomycin HCl 750 mg/ Sodium (Chloride) 250 mls @ 250 mls/hr IV Q24H [facility] Last Infusion: 03/20/23 10:45 Dose: Infused Propofol 1,000 mg/ Premix 100 mls @ 1.123 mls/hr IV .Q24H [facility]; Protocol Last Titration: 03/20/23 15:20 Dose: 5 mcg/kg/min, 1.123 mls/hr Sodium Bicarbonate 150 meq/ (Dextrose) 1,000 mls @ 50 mls/hr IV Q20H [facility] Last Admin: 03/20/23 12:33 Dose: Not Given Acetaminophen (Ofirmev) 650 mg in 65 mls @ 130 mls/hr IV Q6HP PRN; Protocol PRN Reason: PAIN/FEVER > 101 Last Infusion: 03/20/23 11:00 Dose: Infused Fentanyl 2,500 mcg/ Sodium (Chloride) 250 mls @ 2.5 mls/hr IV Q24H [facility]; Protocol Last Titration: 03/20/23 15:02 Dose: 12.5 mcg/hr, 1.25 mls/hr Norepinephrine Bitartrate 8 mg (/ Sodium Chloride) 250 mls @ 18.75 mls/hr IV Q14H [facility]; Protocol Last Titration: 03/20/23 13:28 Dose: 15 mcg/min, 28.125 mls/hr Potassium Phosphate 40 meq/ (Dextrose) 509.0909 mls @ 84.848 mls/hr IV ONCE ONE Stop: 03/20/23 18:59 Last Admin: 03/20/23 13:41 Dose: 84.848 mls/hr Ondansetron HCl (Ondansetron 4 Mg/2 Ml Vial) 4 mg IV Q4-6HP PRN; Protocol PRN Reason: Nausea And Vomiting Pantoprazole Sodium (Pantoprazole 40 Mg Vial) 40 mg IV QAMAC [facility] Last Admin: 03/20/23 07:33 Dose: 40 mg Promethazine HCl/Codeine (Promethazine Hcl/Codeine 1 Ml Syrup) 5 ml PO Q4HP PRN PRN Reason: Cough Sodium Chloride (0.9 % Sodium Chloride 10 Ml Syringe) 10 ml IV Q8 [facility] Last Admin: 03/20/23 15:01 Dose: 10 ml Sodium Chloride (0.9 % Sodium Chloride 10 Ml Syringe) 10 ml IV Q12 [facility] Last Admin: 03/20/23 09:43 Dose: 10 ml Sodium Chloride (0.9 % Sodium Chloride 10 Ml Syringe) 10 ml IV UD PRN PRN Reason: FLUSH Vancomycin HCl (Vancomycin Per Pharmacy) 1 order IV UD [facility]; Protocol A/P Time Spent With Patient Time: Total time spent is greater than 50% in coordination of care (as documented) at patient's floor/unit and/or counseling patient: QUALITY VTE Deep Vein Thrombosis/Pulmonary Embolism Present on Admission: No Restraints Restraint In Place: Yes Reason for restraints: Agitation
--- NOTE | 2023-03-20 15:54 | Urology Progress Note ---
SUBJECTIVE Subjective Patient information: Note initiated : 03/20/23 at 3:51 pm Service Date, if different from initiated Date: [] Patient: Ej Kimble a 18 y/o M admitted on 03/19/23 for fever. Chief Complaint: [Bilateral renal stones and Urosepsis] Principal diagnosis: Bilateral renal stones and urosepsis Interval history: Ej is a 18-year-old male with cerebral palsy who presented to the hospital yesterday in urosepsis with an obstructing left renal stone and right renal stones. He was taken to the operating room urgently for placement of bilateral ureteral stents. Overnight he remained intubated. He remains on pressors today. White blood cell count this morning josé miguel to 39 but later this afternoon is starting to come down. Follow-up renal ultrasound was obtained today that showed resolution of his hydronephrosis on the left. Constitutional Vitals: Vital Signs Temp Pulse Resp BP Pulse Ox O2 Del Method 97.5 F 53 L 14 91/53 100 Mechanical Ventilation 03/20/23 15:12 03/20/23 15:12 03/20/23 15:30 03/20/23 15:01 03/20/23 15:30 03/20/23 15:12 Period Temp Pulse Resp BP Sys/Michael Pulse Ox O2 Del Method O2 Flow Rate Last 24 Hr 97.5 F-102.8 F 53-145 7-25 65-122/35-83 30-100 Mechanical Ventilation-Nasal Cannula Intake and Output 03/20/23 03/20/23 03/20/23 03:59 11:59 19:59 Intake Total 826 1590 992 Output Total 716 322 440 Balance 110 1268 552 Weight 39.916 kg 39.916 kg Patient Weight 03/21/23 03:59 Weight 39.916 kg Intake & Output: Intake & Output 03/20/23 03/20/23 03/20/23 03:59 11:59 19:59 Intake Total 826 1590 992 Output Total 716 322 440 Balance 110 1268 552 Weight 39.916 kg 39.916 kg Intake: IV 826 1410 812 Sodium Chloride 0.9% 250 ml @ 80 20 mls/hr IV .[id number] [facility] Rx#: [id number] Levophed 8 mg In Sodium 232 363 Chloride 0.9% 242 ml @ 10 MCG/ MIN 18.75 mls/hr IV Q14H [facility] Rx #:[id number] Zosyn 3.375 gm In Dextrose 5% 50 50 50 in Water 50 ml @ 100 mls/hr IV Q6H [facility] Rx#:[id number] Potassium Chloride 40 Meq In 270 Dextrose 5% in Water 250 ml @ 67.5 mls/hr IV ONCE [facility] Rx#: [id number] Potassium Chloride 40 Meq In 520 Dextrose 5% in Water 500 ml @ 130 mls/hr IV ONCE [facility] Rx#: [id number] Diprivan 1,000 mg In Premix 1 22 97 17 Bag @ 5 MCG/KG/MIN 1.123 mls/hr IV .Q24H [facility] Rx#:[id number] Sodium Bicarbonate Vial 150 Meq 840 In Dextrose 5% in Water 850 ml @ 50 mls/hr IV Q20H [facility] Rx#: [id number] Vancomycin 750 mg In Sodium 250 Chloride 0.9% 250 ml @ 250 mls/ hr IV Q24H [facility] Rx#:[id number] fentaNYL 2,500 MCG In Sodium 2 28 12 Chloride 0.9% 200 ml @ 25 MCG/ HR 2.5 mls/hr IV Q24H [facility] Rx#: [id number] Oral 0 0 Tube Feeding 0 0 0 GI Tube Flush 180 180 Output: Gastric Drainage 225 NG/OG 225 Urine Catheter Amount 491 322 440 Other: Urine Appearance Clear Clear Clear Uretheral (Beltre) Clear Clear Urine Color Yellow Dark Yellow Bright Yellow Uretheral (Beltre) Yellow Dark Yellow Stool Size Large Moderate Stool Color Yellow Brown Stool Consistency Liquid Liquid Watery Loose Loose # of times incontinent of 1 1 Bowels Exam: Patient intubated and sedated Expanded Exam Urine Appearance: Clear Urine Color: Pale A/P Assessment and plan (1) Hydronephrosis, left: Status: Acute (2) Left ureteral stone: Status: Acute (3) Bilateral renal stones: Status: Acute (4) Sepsis secondary to UTI: Status: Acute (5) Cerebral palsy: Status: Acute (6) Leukocytosis: Status: Acute (7) Hypotension: Status: Acute (8) Tachycardia: Status: Acute Narrative A/P Narrative: Ej remains critical but appears to be improving slightly. We will continue to watch closely. The bilateral stents remain in place until the patient is stable and his infections have cleared at which point we will decide the best way to treat his stones. Treatment of the stones will be difficult based on his body habitus and lower extremity contractures. Time Spent With Patient Time: Total time spent is greater than 50% in coordination of care (as documented) at patient's floor/unit and/or counseling patient:
[2023-03-20] MEDS: 0.9 % SODIUM CHLORIDE 10 ML SYRINGE IV PRN ×3 (18:55→22:00)
[2023-03-20 20:42] LABS: ALT/SGPT 34 U/L (<40); AST/SGOT 38 U/L (<40); Albumin 2.1 gm/dL (3.2-5.2); Albumin/Globulin Ratio 1.2 (1.0-2.3); Alkaline Phosphatase 63 U/L (39-117); Bilirubin,Direct 1.7 mg/dL (<0.3); Bilirubin,Total 2.3 mg/dL (0.1-1.0); Blood Urea Nitrogen 10 mg/dL (6-20); Calcium 6.8 mg/dL (8.6-10.4); Carbon Dioxide 20 mmol/L (22-30); Chloride 108 mmol/L (96-108); Globulin 1.7 gm/dL (2.2-3.7); Glomerular Filtration Rate 108; Glucose 150 mg/dL (70-105); Lactate Dehydrogenase 189 U/L (135-225); Phosphorous 4.2 mg/dL (2.5-4.5); Triglycerides 65 mg/dL (<125); Uric Acid 2.8 mg/dL (2.5-8.0)
[2023-03-21] MEDS: 0.9 % SODIUM CHLORIDE 250 ML IV SCH ×3 (00:05→15:19)
[2023-03-21] MEDS: PIPERACILLIN SODIUM/TAZOBACTAM 3.375 GM in DEXTROSE 5% IN WATER 50 ML IV SCH ×4 (00:29→17:48)
[2023-03-21] MEDS: 0.9 % SODIUM CHLORIDE 10 ML SYRINGE IV PRN ×4 (00:30→19:55)
[2023-03-21] MEDS ORDERED: DEXTROSE 50% 50 ML SYRINGE IV ONE ×2 (00:35→00:39)
[2023-03-21] MEDS: DEXTROSE 5% IN WATER 1,000 ML IV SCH ×2 (00:50→21:20)
[2023-03-21] MEDS: PROPOFOL 1,000 MG in PREMIX 1 BAG IV SCH ×4 (00:53→23:25)
[2023-03-21] MEDS: ACETAMINOPHEN 650 MG/65 ML BAG IV PRN (02:16)
[2023-03-21] MEDS: VASOPRESSIN 20 UNIT in DEXTROSE 5% IN WATER 99 ML IV SCH ×2 (02:50→14:53)
[2023-03-21] MEDS: ALBUTEROL SULFATE 2.5 MG/3 ML NEBULIZER NEB SCH ×6 (04:44→23:59)
[2023-03-21] MEDS: NOREPINEPHRINE BITARTRATE 8 MG in 0.9 % SODIUM CHLORIDE 242 ML IV SCH ×2 (05:10→17:28)
[2023-03-21] MEDS: fentaNYL 2,500 MCG in 0.9 % SODIUM CHLORIDE 200 ML IV SCH ×2 (05:23→18:57)
[2023-03-21] MEDS: 0.9 % SODIUM CHLORIDE 10 ML SYRINGE IV SCH ×7 (06:00→21:22)
[2023-03-21 07:52] LABS: ALT/SGPT 32 U/L (<40); AST/SGOT 40 U/L (<40); Albumin 2.1 gm/dL (3.2-5.2); Albumin/Globulin Ratio 1.2 (1.0-2.3); Alkaline Phosphatase 77 U/L (39-117); Bilirubin,Total 2.6 mg/dL (0.1-1.0); Blood Urea Nitrogen 10 mg/dL (6-20); Calcium 7.1 mg/dL (8.6-10.4); Carbon Dioxide 21 mmol/L (22-30); Chloride 106 mmol/L (96-108); Globulin 1.8 gm/dL (2.2-3.7); Glomerular Filtration Rate 108; Glucose 103 mg/dL (70-105)
[2023-03-21 08:02] LABS: Basophils # (Auto) 0.07 K/mcL (0.00-0.30); Basophils % (Auto) 0.4 % (0.0-2.0); Eosinophils # (Auto) 0.26 K/mcL (0.00-0.70); Eosinophils % (Auto) 1.4 % (0.0-7.0); Hematocrit 27.9 % (40.1-51.0); Hemoglobin 9.7 g/dL (13.7-17.5); Lymphocytes # (Auto) 3.25 K/mcL (1.50-4.80); Lymphocytes % (Auto) 17.2 % (15.5-49.0); Mean Cell Volume 109.4 fL (80.0-100.0); Mean Corpuscular HGB Conc 34.8 g/dL (31.0-36.0); Monocytes # (Auto) 0.46 K/mcL (0.10-0.90); Monocytes % (Auto) 2.4 % (1.0-12.0); Neutrophils % (Auto) 72.7 % (38.0-78.0); Platelet Count 33 K/mcL (140-440); RBC 2.55 M/mcL (4.63-6.08); Red Cell Distribution Width 14.1 % (11.5-14.5); WBC 18.9 K/mcL (4.5-11.0)
[2023-03-21] MEDS: PANTOPRAZOLE 40 MG VIAL IV SCH (08:57)
[2023-03-21] MEDS: VANCOMYCIN 750 MG in 0.9 % SODIUM CHLORIDE 250 ML IV SCH ×3 (09:34→21:25)
[2023-03-21] MEDS ORDERED: POTASSIUM CHLORIDE 40 MEQ in DEXTROSE 5% IN WATER 250 ML IV ONE ×2 (10:00→18:50)
[2023-03-21] MEDS: FLUTICASONE PROPIONATE SPRAY.NAS NS SCH (10:07)
[2023-03-21] MEDS: CHLORHEXIDINE GLUCONATE 1 ML ORAL.SOL SWABMOUTH SCH ×3 (10:10→21:24)
[2023-03-21] MEDS: POTASSIUM CHLORIDE 20 MEQ PACKET PO SCH ×3 (10:10→14:54)
--- NOTE | 2023-03-21 11:22 | XRay Report ---
INDICATION: Mechanically Ventilated TECHNIQUE: AP portable supine chest x-ray COMPARISON: Previous chest x-rays dated 03/20/2023, 03/19/2023 FINDINGS: Endotracheal tube is pulled back slightly and is 7 cm above the avel. Right central venous catheter tip remains in superior vena cava Esophagogastric tube is been pulled back. Tip remains in the proximal stomach but the sidehole of the catheter is above the diaphragm Increasing bilateral parenchymal infiltrates and increasing pleural fluid, right worse than left. Pressures is consistent with congestive heart failure or fluid overload and findings are worse than on previous examination. IMPRESSION: 1. Endotracheal tube has been pulled back and is above the level of the thoracic inlet. This is approximately 8 cm above the avel 2. Esophagogastric tube is been pulled back. Tip is in the proximal stomach 3. Increasing parenchymal infiltrates and pleural fluid. Appearance is consistent with fluid overload or congestive heart failure Interpreted and Authenticated by: Lalito Dao 03/21/23
[2023-03-21] MEDS ORDERED: FUROSEMIDE 20 MG/2 ML VIAL IV ONE (11:42)
--- NOTE | 2023-03-21 12:24 | Urology Progress Note ---
SUBJECTIVE Subjective Patient information: Note initiated : 03/21/23 at 12:21 pm Service Date, if different from initiated Date: [] Patient: Ej Kimble 18 y/o M admitted on 03/19/23 for fever. Chief Complaint: Urosepsis secondary to obstructing stone. Principal diagnosis: Bilateral renal stones and urosepsis Interval history: The patient remains intubated this morning although his white count is coming down. Constitutional Vitals: Vital Signs Temp Pulse Resp BP Pulse Ox O2 Del Method 98.1 F 84 13 93/55 94 Mechanical Ventilation 03/21/23 07:10 03/21/23 11:36 03/21/23 11:36 03/21/23 02:39 03/21/23 11:36 03/21/23 11:36 Period Temp Pulse Resp BP Sys/Michael Pulse Ox O2 Del Method O2 Flow Rate Last 24 Hr 97.0 F-99.9 F 53-95 12-16 88-95/41-61 94-100 Mechanical Ventilation-Mechanical Ventilation Intake and Output 03/21/23 03/21/23 03/21/23 03:59 11:59 19:59 Intake Total 1034.0909 174 Output Total 690 700 Balance 344.0909 -526 Weight 41.685 kg 41.685 kg Patient Weight 03/22/23 03:59 Weight 41.685 kg Intake & Output: Intake & Output 03/21/23 03/21/23 03/21/23 03:59 11:59 19:59 Intake Total 1034.0909 174 Output Total 690 700 Balance 344.0909 -526 Weight 41.685 kg 41.685 kg Intake: IV 1034.0909 174 Sodium Chloride 0.9% 250 ml @ 250 20 mls/hr IV .[id number] [facility] Rx#: [id number] Levophed 8 mg In Sodium 160 90 Chloride 0.9% 242 ml @ 10 MCG/ MIN 18.75 mls/hr IV Q14H [facility] Rx #:[id number] Zosyn 3.375 gm In Dextrose 5% 50 50 in Water 50 ml @ 100 mls/hr IV Q6H [facility] Rx#:[id number] Potassium Phosphate 40 Meq In 509.0909 Dextrose 5% in Water 500 ml @ 84.848 mls/hr IV ONCE ONE Rx#: [id number] Diprivan 1,000 mg In Premix 1 14 Bag @ 5 MCG/KG/MIN 1.123 mls/hr IV .Q24H [facility] Rx#:[id number] fentaNYL 2,500 MCG In Sodium 20 Chloride 0.9% 200 ml @ 25 MCG/ HR 2.5 mls/hr IV Q24H [facility] Rx#: [id number] Tube Feeding 0 0 Output: Gastric Drainage 75 NG/OG 75 Urine Catheter Amount 690 625 Other: Urine Appearance Clear Clear Uretheral (Beltre) Clear Urine Color Yellow Yellow Uretheral (Beltre) Yellow Stool Size Small Small Stool Color Yellow Yellow Green Stool Consistency Liquid Liquid # of times incontinent of 1 1 Bowels Expanded Exam Urine Appearance: Clear Urine Color: Yellow and Pale A/P Assessment and plan (1) Kidney stone: Status: Acute (2) Sepsis: Status: Acute (3) Hypotension: Status: Acute (4) Leukocytosis: Status: Acute (5) Left ureteral stone: Status: Acute (6) Bilateral renal stones: Status: Acute (7) Sepsis secondary to UTI: Status: Acute (8) Cerebral palsy: Status: Acute Narrative A/P Narrative: The patient appears to show signs of improvement today with a decreased white count and decreased need for sedation with intubation. Hopefully he will be able to be extubated later today or tomorrow. He will need to continue with the Beltre catheter for monitoring. I will not see him over the weekend although I will be available by phone should there be any urologic issues or questions. Time Spent With Patient Time: Total time spent is greater than 50% in coordination of care (as documented) at patient's floor/unit and/or counseling patient:
--- NOTE | 2023-03-21 15:16 | Internal Med Progress Note ---
SUBJECTIVE Subjective Patient information: Note initiated : 03/21/23 at 3:09 pm Service Date, if different from initiated Date: [] Patient: Ej Kimble 18 y/o M admitted on 03/19/23 for fever. Chief Complaint: [] Principal diagnosis: Bilateral renal stones and urosepsis Additional PMFSH (Level 3 Only): Patient is a 18 years old male with history of asthma/reactive airway disease, cerebral palsy, developmental delay, noncommunicative, wheelchair-bound, herpes type II, presented acute onset vomiting, nausea, fever and loose stool. His mother is the main caregiver and contributed to the history. She reported that patient was in normal state of health when suddenly he started vomiting x3, he tensed up his body as if he was in distress. Mother touched/7 for her and it was quite warm to touch, but did not check his temperature. She reported patient had UTI a month ago and was treated with antibiotic. She reports patient does aspirate and is on pured diet. 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 On presentation patient was hypotensive BP 75/39, tachycardia 127 bpm, ta chypneic respiratory rate 29, fever 103.3. CBC showed WBC 3.4, hemoglobin 14.4, will lactic acid 4.8, potassium 2.9, procalcitonin 3.47. UA still pending. CT abdomen and pelvis with contrast showed nonobstructing renal calculi bilaterally, obstructing stone in the left mid ureter measuring 10 x 8 x 14 mm, left hydronephrosis and hydroureter. Pyonephrosis is possible. Chest x-ray was unremarkable. EKG showed sinus tachycardia with a rate of 142, normal axis, TX of 97, QRS of 100, QTc of 382, T wave flattening in aVL, and absence of ST elevation or depression. Patient was seen with Dr. Maria from urology and with anesthesiologist in preop room. He remains hypotensive requiring vasopre ssor and fluid resuscitation. Patient was admitted for severe sepsis with septic shock, UTI and renal calculi 03/20. Patient is status post bilateral ureteral stent placement, he received 6 L of crystalloids during procedure however became hypotensive. Patient was intubated on Levophed, propofol, fentanyl. Lactic acid was rising however now improving. Renal ultrasound ordered. Abdominal ultrasound ordered. 03/21. On sedation and Levophed. Breathing stable on ventilator. Leukocytosis trended down to 18,000 from 26,000 yesterday. Thrombocytopenia 33K. ABGs 7.3 //. Hypokalemia 2.5. Total bili 2.6. Liver enzymes otherwise stable. MRSA screen negative. Blood culture 03/19 positive for pansensitive E. col. urine culture remains negative. Chest x-ray from this morning reviewed. Increasing parenchymal infiltrate and pleural fluid consistent with fluid volume overload. Echocardiogram is completed and still pending. Plan for sedation vacation Review of system Review of system limited as patient is sedated and on ventilator Physical examination General appearance: Appears comfortable, on mechanical ventilation Head Head: Present normocephalic; Absent atraumatic Eye Eye: Present no scleral icterus ENT ENT: Present mucous membranes moist; Absent nasal congestion Neck Neck: Present full ROM; Absent tenderness Chest Chest: Present normal inspection, symmetric chest wall rise and tenderness Respiratory Respiratory: Harsh breath sounds bilaterally, remains on ventilator Cardiovascular Cardiovascular: Present regular rate, normal rhythm and normal heart sounds Adbominal Abdominal: Present soft and normal bowel sounds; Absent distention or tenderness Rectal Rectal: Present deferred Extremities Extremities: Present normal inspection and full ROM; Absent tenderness Back Back: Present normal inspection and full ROM; Absent tenderness Neurological Neurological: Present sedated Psychiatric Psychiatric: Present no agitation Skin Skin: Present warm (WNL), dry and normal color Assessment Severe sepsis with septic shock despite appropriate fluid resuscitation, requiring vasopressor Intubated and mechanically ventilated Severe lactic acidosis, now cleared Urinary tract infection, urine culture negative, blood culture positive for E. coli pansensitive Bilateral renal calculi. Left kidney with nonobstructing calculi, right kidney hydronephrosis improving status post bilateral stent placement Obstructing left ureter stone measuring 10 x 8 x 14 mm Left hydronephrosis and hydroureter, status post bilateral ureteral stent placement. Repeat ultrasound with interval resolution of left hydronephrosis. Hypokalemia, severe Will replace aggressively with IV and po kcl Volume overload. Echo with EF 60-65%, normal diastolic function, no valvular dysfunction. Chest x-ray with increasing parenchymal infiltrate and pleural fluid, patient also appears puffy. Will give IV Lasix Reactive airway disease/asthma Cerebral palsy Developmental delay Noncommunicative Plan Wean off vasopressor as tolerated, keep map around 70 Wean off sedation, plan for sedation vacation and breathing trial, follow-up with ABG IV Lasix as needed Correct hypokalemia with p.o. and IV KCl Continue broad-spectrum antibiotics vancomycin and Zosyn Follow culture data DVT prophylaxis GI prophylaxis Full code Critical care time 55 minutes Constitutional Vitals: Vital Signs Temp Pulse Resp BP Pulse Ox O2 Del Method 97.6 F 82 14 93/55 100 Mechanical Ventilation 03/21/23 13:25 03/21/23 13:25 03/21/23 13:25 03/21/23 02:39 03/21/23 13:25 03/21/23 13:25 Period Temp Pulse Resp BP Sys/Michael Pulse Ox O2 Del Method O2 Flow Rate Last 24 Hr 96.3 F-99.9 F 53-95 12-16 89-94/41-61 94-100 Mechanical Ventilation-Mechanical Ventilation Intake and Output 03/21/23 03/21/23 03/21/23 03:59 11:59 19:59 Intake Total 1034.0909 424 188 Output Total 690 880 220 Balance 344.0909 -456 -32 Weight 41.685 kg 41.685 kg Patient Weight 03/22/23 03:59 Weight 41.685 kg Intake & Output: Intake & Output 03/21/23 03/21/23 03/21/23 03:59 11:59 19:59 Intake Total 1034.0909 424 188 Output Total 690 880 220 Balance 344.0909 -456 -32 Weight 41.685 kg 41.685 kg Intake: IV 1034.0909 424 188 Sodium Chloride 0.9% 250 ml @ 250 20 mls/hr IV .[id number] [facility] Rx#: [id number] Levophed 8 mg In Sodium 160 90 183 Chloride 0.9% 242 ml @ 10 MCG/ MIN 18.75 mls/hr IV Q14H [facility] Rx #:[id number] Zosyn 3.375 gm In Dextrose 5% 50 50 in Water 50 ml @ 100 mls/hr IV Q6H [facility] Rx#:[id number] Potassium Phosphate 40 Meq In 509.0909 Dextrose 5% in Water 500 ml @ 84.848 mls/hr IV ONCE ONE Rx#: [id number] Diprivan 1,000 mg In Premix 1 14 5 Bag @ 5 MCG/KG/MIN 1.123 mls/hr IV .Q24H [facility] Rx#:[id number] Vancomycin 750 mg In Sodium 250 Chloride 0.9% 250 ml @ 250 mls/ hr IV Q12H [facility] Rx#:[id number] fentaNYL 2,500 MCG In Sodium 20 Chloride 0.9% 200 ml @ 25 MCG/ HR 2.5 mls/hr IV Q24H [facility] Rx#: [id number] Tube Feeding 0 0 Output: Gastric Drainage 75 NG/OG 75 Urine Catheter Amount 690 805 220 Other: Urine Appearance Clear Clear Clear Uretheral (Beltre) Clear Urine Color Yellow Yellow Yellow Uretheral (Beltre) Yellow Stool Size Small Small Stool Color Yellow Yellow Green Stool Consistency Liquid Liquid # of times incontinent of 1 1 Bowels OBJ DATA Labs 03/21/23 06:00 03/21/23 06:00 Labs: Abnormal Lab Results 03/21/23 03/21/23 03/21/23 12:03 06:00 06:00 WBC 18.9 H RBC 2.55 L Hgb 9.7 L Hct 27.9 L MCV 109.4 H MCH 38.0 H Plt Count 33 L* MPV Immature Gran % (Auto) 5.9 H Neut % (Auto) Lymph % (Auto) [place] % (Auto) Lymph # (Auto) [place] # (Auto) Immature Gran # 1.11 H Absolute Neutrophils 13.70 H PT INR APTT D-Dimer POC pH 7.31 L POC pCO2 POC pO2 77 L POC HCO3 19.1 L POC Total CO2 20.0 L POC ABG Base Excess -7.0 L ABG Lactic Acid POC VBG pH POC VBG pCO2 at Temp POC VBG pO2 POC VBG HCO3 POC VBG Total CO2 POC Venous O2 Sat POC VBG Base Excess VBG Lactic Acid Hgb O2 Saturation POC Potassium Potassium 2.5 L* Chloride Carbon Dioxide 21 L Glucose Calcium 7.1 L POC WB Ioniz Calcium Ionized Calcium Kristal Phosphorus Magnesium Total Bilirubin 2.6 H Direct Bilirubin AST 40 H ALT Total Protein 3.9 L Albumin 2.1 L Globulin 1.8 L Procalcitonin Urine Appearance Urine Protein Urine RBC Urine WBC Urine Mucus 03/20/23 03/20/23 03/20/23 19:57 14:02 08:12 WBC 26.3 H RBC 2.72 L Hgb 10.6 L Hct 29.5 L MCV 108.5 H MCH 39.0 H Plt Count 37 L* MPV Immature Gran % (Auto) 4.8 H Neut % (Auto) 82.5 H Lymph % (Auto) 10.1 L [place] % (Auto) Lymph # (Auto) [place] # (Auto) Immature Gran # 1.25 H Absolute Neutrophils 21.69 H PT INR APTT D-Dimer POC pH 7.57 H POC pCO2 23.9 L* POC pO2 75 L POC HCO3 POC Total CO2 POC ABG Base Excess ABG Lactic Acid POC VBG pH POC VBG pCO2 at Temp POC VBG pO2 POC VBG HCO3 POC VBG Total CO2 POC Venous O2 Sat POC VBG Base Excess VBG Lactic Acid Hgb O2 Saturation POC Potassium Potassium Chloride Carbon Dioxide 20 L Glucose 150 H Calcium 6.8 L POC WB Ioniz Calcium Ionized Calcium Kristal Phosphorus Magnesium Total Bilirubin 2.3 H Direct Bilirubin 1.7 H AST ALT Total Protein 3.8 L Albumin 2.1 L Globulin 1.7 L Procalcitonin Urine Appearance Urine Protein Urine RBC Urine WBC Urine Mucus 03/20/23 03/20/23 03/20/23 05:30 05:30 04:50 WBC RBC Hgb Hct MCV MCH Plt Count MPV Immature Gran % (Auto) Neut % (Auto) Lymph % (Auto) [place] % (Auto) Lymph # (Auto) [place] # (Auto) Immature Gran # Absolute Neutrophils PT INR APTT D-Dimer POC pH POC pCO2 POC pO2 POC HCO3 POC Total CO2 POC ABG Base Excess ABG Lactic Acid POC VBG pH POC VBG pCO2 at Temp POC VBG pO2 POC VBG HCO3 POC VBG Total CO2 POC Venous O2 Sat POC VBG Base Excess VBG Lactic Acid Hgb O2 Saturation POC Potassium Potassium 2.6 L* Chloride Carbon Dioxide 21 L Glucose 163 H Calcium 7.0 L POC WB Ioniz Calcium Ionized Calcium Kristal Phosphorus 1.3 L Magnesium 1.4 L Total Bilirubin 2.2 H Direct Bilirubin AST 53 H ALT 40 H Total Protein 3.9 L Albumin 2.3 L Globulin 1.6 L Procalcitonin 77.66 H Urine Appearance Urine Protein Urine RBC Urine WBC Urine Mucus 03/20/23 03/19/23 03/19/23 04:50 20:15 20:01 WBC 38.2 H* RBC 2.97 L Hgb 11.3 L Hct 31.6 L MCV 106.4 H MCH 38.0 H Plt Count 54 L MPV 13.5 H Immature Gran % (Auto) 4.7 H Neut % (Auto) 86.7 H Lymph % (Auto) 7.0 L [place] % (Auto) Lymph # (Auto) [place] # (Auto) Immature Gran # 1.78 H Absolute Neutrophils 33.12 H PT INR APTT D-Dimer POC pH POC pCO2 27.7 L POC pO2 163 H POC HCO3 17.1 L POC Total CO2 18.0 L POC ABG Base Excess -8.0 L ABG Lactic Acid 4.0 H* POC VBG pH POC VBG pCO2 at Temp POC VBG pO2 POC VBG HCO3 POC VBG Total CO2 POC Venous O2 Sat POC VBG Base Excess VBG Lactic Acid Hgb O2 Saturation 100.0 H POC Potassium Potassium 3.1 L Chloride Carbon Dioxide 18 L Glucose 258 H Calcium 6.8 L POC WB Ioniz Calcium Ionized Calcium Kristal Phosphorus Magnesium Total Bilirubin Direct Bilirubin AST ALT Total Protein Albumin Globulin Procalcitonin Urine Appearance Urine Protein Urine RBC Urine WBC Urine Mucus 03/19/23 03/19/23 03/19/23 16:22 14:18 14:06 WBC RBC Hgb Hct MCV MCH Plt Count MPV Immature Gran % (Auto) Neut % (Auto) Lymph % (Auto) [place] % (Auto) Lymph # (Auto) [place] # (Auto) Immature Gran # Absolute Neutrophils PT INR APTT D-Dimer POC pH 7.34 L POC pCO2 25.9 L POC pO2 151 H POC HCO3 14.1 L POC Total CO2 15.0 L POC ABG Base Excess -12.0 L ABG Lactic Acid 8.9 H* POC VBG pH POC VBG pCO2 at Temp POC VBG pO2 POC VBG HCO3 POC VBG Total CO2 POC Venous O2 Sat POC VBG Base Excess VBG Lactic Acid Hgb O2 Saturation 99.0 H POC Potassium Potassium 3.1 L 3.0 L Chloride Carbon Dioxide 17 L 15 L Glucose 223 H 188 H Calcium 7.8 L 7.4 L POC WB Ioniz Calcium Ionized Calcium Kristal Phosphorus Magnesium Total Bilirubin 2.2 H Direct Bilirubin AST 65 H ALT Total Protein 4.2 L Albumin 2.6 L Globulin 1.6 L Procalcitonin Urine Appearance Urine Protein Urine RBC Urine WBC Urine Mucus 03/19/23 03/19/23 03/19/23 10:40 10:40 10:36 WBC 24.5 H RBC 3.15 L Hgb 12.2 L Hct 36.4 L MCV 115.6 H MCH 38.7 H Plt Count 87 L MPV Immature Gran % (Auto) 1.5 H Neut % (Auto) 96.0 H Lymph % (Auto) 1.5 L [place] % (Auto) 0.9 L Lymph # (Auto) 0.36 L [place] # (Auto) Immature Gran # 0.37 H Absolute Neutrophils 23.54 H PT INR APTT D-Dimer POC pH 7.28 L POC pCO2 32.6 L POC pO2 POC HCO3 15.3 L POC Total CO2 16.0 L POC ABG Base Excess -11.0 L ABG Lactic Acid 6.6 H* POC VBG pH POC VBG pCO2 at Temp POC VBG pO2 POC VBG HCO3 POC VBG Total CO2 POC Venous O2 Sat POC VBG Base Excess VBG Lactic Acid Hgb O2 Saturation POC Potassium Potassium 2.9 L* Chloride Carbon Dioxide 16 L Glucose Calcium 7.7 L POC WB Ioniz Calcium Ionized Calcium Kristal Phosphorus Magnesium Total Bilirubin 1.6 H Direct Bilirubin AST 57 H ALT Total Protein 4.2 L Albumin 2.6 L Globulin 1.6 L Procalcitonin Urine Appearance Urine Protein Urine RBC Urine WBC Urine Mucus 03/19/23 03/19/23 03/19/23 08:49 08:49 08:38 WBC RBC Hgb Hct MCV MCH Plt Count MPV Immature Gran % (Auto) Neut % (Auto) Lymph % (Auto) [place] % (Auto) Lymph # (Auto) [place] # (Auto) Immature Gran # Absolute Neutrophils PT 23.4 H INR 2.0 H APTT 51.8 H D-Dimer 8.28 H POC pH POC pCO2 POC pO2 POC HCO3 POC Total CO2 POC ABG Base Excess ABG Lactic Acid POC VBG pH POC VBG pCO2 at Temp POC VBG pO2 POC VBG HCO3 POC VBG Total CO2 POC Venous O2 Sat POC VBG Base Excess VBG Lactic Acid 6.5 H* Hgb O2 Saturation POC Potassium Potassium Chloride Carbon Dioxide Glucose Calcium POC WB Ioniz Calcium Ionized Calcium Kristal Phosphorus Magnesium Total Bilirubin Direct Bilirubin AST ALT Total Protein Albumin Globulin Procalcitonin Urine Appearance Urine Protein Urine RBC Urine WBC Urine Mucus 03/19/23 03/19/23 03/19/23 08:37 08:36 06:20 WBC 16.8 H RBC 2.55 L Hgb 9.7 L Hct 28.9 L MCV 113.3 H MCH 38.0 H Plt Count 61 L MPV Immature Gran % (Auto) 0.9 H Neut % (Auto) 95.2 H Lymph % (Auto) 2.7 L [place] % (Auto) Lymph # (Auto) 0.46 L [place] # (Auto) Immature Gran # 0.15 H Absolute Neutrophils 15.97 H PT INR APTT D-Dimer POC pH POC pCO2 POC pO2 POC HCO3 POC Total CO2 POC ABG Base Excess ABG Lactic Acid POC VBG pH POC VBG pCO2 at Temp POC VBG pO2 POC VBG HCO3 POC VBG Total CO2 POC Venous O2 Sat POC VBG Base Excess VBG Lactic Acid Hgb O2 Saturation POC Potassium Potassium 2.9 L* Chloride 111 H Carbon Dioxide 14 L Glucose Calcium POC WB Ioniz Calcium Ionized Calcium Kristal 0.95 L Phosphorus Magnesium Total Bilirubin Direct Bilirubin AST ALT Total Protein Albumin Globulin Procalcitonin Urine Appearance Hazy A Urine Protein 100 A Urine RBC 7 H Urine WBC 8 H Urine Mucus Few A 03/19/23 03/19/23 03/19/23 05:28 02:58 02:01 WBC RBC Hgb Hct MCV MCH Plt Count MPV Immature Gran % (Auto) Neut % (Auto) Lymph % (Auto) [place] % (Auto) Lymph # (Auto) [place] # (Auto) Immature Gran # Absolute Neutrophils PT INR APTT D-Dimer POC pH POC pCO2 POC pO2 POC HCO3 POC Total CO2 POC ABG Base Excess ABG Lactic Acid POC VBG pH POC VBG pCO2 at Temp 30.3 L POC VBG pO2 POC VBG HCO3 19.4 L POC VBG Total CO2 20.0 L POC Venous O2 Sat POC VBG Base Excess -5.0 L VBG Lactic Acid 5.8 H* 4.6 H* 4.2 H* Hgb O2 Saturation POC Potassium Potassium Chloride Carbon Dioxide Glucose Calcium POC WB Ioniz Calcium Ionized Calcium Kristal Phosphorus Magnesium Total Bilirubin Direct Bilirubin AST ALT Total Protein Albumin Globulin Procalcitonin Urine Appearance Urine Protein Urine RBC Urine WBC Urine Mucus 03/19/23 03/19/23 03/19/23 00:04 00:04 00:04 WBC 3.4 L RBC 3.78 L Hgb Hct MCV 110.3 H MCH 38.1 H Plt Count 119 L MPV Immature Gran % (Auto) 0.9 H Neut % (Auto) 84.8 H Lymph % (Auto) 13.1 L [place] % (Auto) 0.9 L Lymph # (Auto) 0.44 L [place] # (Auto) 0.03 L Immature Gran # Absolute Neutrophils PT INR APTT D-Dimer POC pH POC pCO2 POC pO2 POC HCO3 POC Total CO2 POC ABG Base Excess ABG Lactic Acid POC VBG pH POC VBG pCO2 at Temp POC VBG pO2 POC VBG HCO3 POC VBG Total CO2 POC Venous O2 Sat POC VBG Base Excess VBG Lactic Acid Hgb O2 Saturation POC Potassium Potassium 2.9 L* Chloride Carbon Dioxide Glucose Calcium POC WB Ioniz Calcium Ionized Calcium Kristal Phosphorus Magnesium Total Bilirubin Direct Bilirubin AST ALT Total Protein Albumin Globulin Procalcitonin 3.47 H Urine Appearance Urine Protein Urine RBC Urine WBC Urine Mucus 03/18/23 03/18/23 23:45 23:44 WBC RBC Hgb Hct MCV MCH Plt Count MPV Immature Gran % (Auto) Neut % (Auto) Lymph % (Auto) [place] % (Auto) Lymph # (Auto) [place] # (Auto) Immature Gran # Absolute Neutrophils PT INR APTT D-Dimer POC pH POC pCO2 POC pO2 POC HCO3 POC Total CO2 POC ABG Base Excess ABG Lactic Acid POC VBG pH 7.30 L POC VBG pCO2 at Temp 57.6 H POC VBG pO2 19 L POC VBG HCO3 28.4 H POC VBG Total CO2 30.0 H POC Venous O2 Sat 24.0 L POC VBG Base Excess VBG Lactic Acid 4.8 H* Hgb O2 Saturation POC Potassium 7.3 H* Potassium Chloride Carbon Dioxide Glucose Calcium POC WB Ioniz Calcium 1.02 L Ionized Calcium Kristal Phosphorus Magnesium Total Bilirubin Direct Bilirubin AST ALT Total Protein Albumin Globulin Procalcitonin Urine Appearance Urine Protein Urine RBC Urine WBC Urine Mucus Meds: Medications Acetaminophen (Acetaminophen 325 Mg Tablet) 650 mg PO Q4-6HP PRN; Protocol PRN Reason: Per Pain Protocol/Fever > 101 Albuterol Sulfate (Albuterol Sulfate 2.5 Mg/3 Ml Nebulizer) 2.5 mg NEB Q4 [facility] Last Admin: 03/21/23 11:31 Dose: 2.5 mg Baclofen (Baclofen 10 Mg Tablet) 10 mg PO TIDP PRN PRN Reason: Pain Chlorhexidine Gluconate (Chlorhexidine Gluconate 1 Ml Oral.Daniela) 15 ml [place]AB[place]TH BID [facility] Last Admin: 03/21/23 10:10 Dose: 15 ml Chlorhexidine Gluconate (Chlorhexidine Gluconate 1 Ml Oral.Daniela) 15 ml [place] BID [facility] Diagnostic Test (Pha) (Accu-Chek 1 Each Strip) 1 each FS Q4 [facility] Last Admin: 03/21/23 12:43 Dose: 1 each Fluticasone Propionate (Fluticasone Propionate Lindsay.Man) 2 spray NS DAILY [facility] Last Admin: 03/21/23 10:07 Dose: Not Given Sodium Chloride (Sodium Chloride 0.9%) 250 mls @ 20 mls/hr IV .[id number] [facility] Last Admin: 03/21/23 07:21 Dose: Not Given Piperacillin Sod/Tazobactam (Sod 3.375 gm/ Dextrose) 50 mls @ 100 mls/hr IV Q6H [facility]; Protocol Last Admin: 03/21/23 12:38 Dose: 100 mls/hr Vasopressin 20 unit/ Dextrose 100 mls @ 6 mls/hr IV Q17H [facility]; Protocol Last Admin: 03/21/23 14:53 Dose: Not Given Acetaminophen (Ofirmev) 650 mg in 65 mls @ 130 mls/hr IV Q6HP PRN; Protocol PRN Reason: PAIN/FEVER > 101 Last Infusion: 03/21/23 03:00 Dose: Infused Fentanyl 2,500 mcg/ Sodium (Chloride) 250 mls @ 2.5 mls/hr IV Q24H [facility]; Protocol Last Titration: 03/21/23 10:30 Dose: 12.5 mcg/hr, 1.25 mls/hr Norepinephrine Bitartrate 8 mg (/ Sodium Chloride) 250 mls @ 18.75 mls/hr IV Q 14H [facility]; Protocol Last Titration: 03/21/23 13:22 Dose: 9 mcg/min, 16.875 mls/hr Dextrose (Dextrose 5% In Water) 1,000 mls @ 50 mls/hr IV .Q20H [facility] Last Admin: 03/21/23 00:50 Dose: 50 mls/hr Vancomycin HCl 750 mg/ Sodium (Chloride) 250 mls @ 250 mls/hr IV Q12H [facility] Last Infusion: 03/21/23 10:45 Dose: Infused Propofol 1,000 mg/ Premix 100 mls @ 1.123 mls/hr IV .Q24H [facility]; Protocol Last Titration: 03/21/23 12:46 Dose: 5 mcg/kg/min, 1.123 mls/hr Ondansetron HCl (Ondansetron 4 Mg/2 Ml Vial) 4 mg IV Q4-6HP PRN; Protocol PRN Reason: Nausea And Vomiting Pantoprazole Sodium (Pantoprazole 40 Mg Vial) 40 mg IV QAMAC [facility] Last Admin: 03/21/23 08:57 Dose: 40 mg Promethazine HCl/Codeine (Promethazine Hcl/Codeine 1 Ml Syrup) 5 ml PO Q4HP PRN PRN Reason: Cough Sodium Chloride (0.9 % Sodium Chloride 10 Ml Syringe) 10 ml IV Q8 [facility] Last Admin: 03/21/23 14:55 Dose: 10 ml Sodium Chloride (0.9 % Sodium Chloride 10 Ml Syringe) 10 ml IV Q12 [facility] Last Admin: 03/21/23 09:51 Dose: 10 ml Sodium Chloride (0.9 % Sodium Chloride 10 Ml Syringe) 10 ml IV UD PRN PRN Reason: FLUSH Last Admin: 03/21/23 06:10 Dose: 10 ml Vancomycin HCl (Vancomycin Per Pharmacy) 1 order IV UD [facility]; Protocol A/P Time Spent With Patient Time: Total time spent is greater than 50% in coordination of care (as documented) at patient's floor/unit and/or counseling patient: QUALITY VTE Deep Vein Thrombosis/Pulmonary Embolism Present on Admission: No Restraints Restraint In Place: Yes Reason for restraints: To avoid disruption of lines and endotracheal tube
[2023-03-21] MEDS: FUROSEMIDE 20 MG/2 ML VIAL IV SCH (16:28)
[2023-03-21] MEDS ORDERED: POTASSIUM CHLORIDE 20 MEQ/10 ML VIAL IV ONE ×2 (19:48)
[2023-03-21] MEDS ORDERED: POTASSIUM CHLORIDE 20 MEQ in DEXTROSE 5% IN WATER 100 ML IV ONE (23:00)
[2023-03-22] MEDS: PIPERACILLIN SODIUM/TAZOBACTAM 3.375 GM in DEXTROSE 5% IN WATER 50 ML IV SCH ×2 (00:25→06:20)
[2023-03-22] MEDS: 0.9 % SODIUM CHLORIDE 10 ML SYRINGE IV PRN ×6 (00:25→21:59)
[2023-03-22] MEDS: NOREPINEPHRINE BITARTRATE 8 MG in 0.9 % SODIUM CHLORIDE 242 ML IV SCH ×3 (01:06→13:56)
[2023-03-22] MEDS: FUROSEMIDE 20 MG/2 ML VIAL IV SCH ×3 (01:14→21:59)
[2023-03-22] MEDS: 0.9 % SODIUM CHLORIDE 250 ML IV SCH ×2 (03:00→08:05)
[2023-03-22] MEDS: ALBUTEROL SULFATE 2.5 MG/3 ML NEBULIZER NEB SCH ×7 (04:02→23:49)
[2023-03-22] MEDS: 0.9 % SODIUM CHLORIDE 10 ML SYRINGE IV SCH ×5 (05:20→22:21)
[2023-03-22] MEDS: VASOPRESSIN 20 UNIT in DEXTROSE 5% IN WATER 99 ML IV SCH (06:20)
--- NOTE | 2023-03-22 06:45 | XRay Report ---
INDICATION: mechanically ventilated TECHNIQUE: AP portable supine chest x-ray COMPARISON: Previous chest x-rays dated 03/21/2023, 03/20/2023, 03/19/2023 FINDINGS: Endotracheal tube tip is above the thoracic inlet, approximately 11 cm above the avel No change in position of right central venous catheter within the superior vena cava Esophagogastric tube is in the proximal stomach, the sidehole is above the level of the diaphragm. Pleural effusion is identified at the right lung base on this supine radiograph. This is slightly decreased in size since 03/21/2023 Bilateral pulmonary parenchymal density is improved. No new parenchymal infiltrate or mass. No change in heart size IMPRESSION: 1. Endotracheal tube tip 11 cm above the avel 2. Esophagogastric tube in the proximal stomach with the sidehole above the diaphragm 3. Improved right pleural effusion and infiltrates Interpreted and Authenticated by: Lalito Dao 03/22/23
[2023-03-22 07:15] LABS: ALT/SGPT 36 U/L (<40); AST/SGOT 55 U/L (<40); Albumin 2.6 gm/dL (3.2-5.2); Albumin/Globulin Ratio 1.3 (1.0-2.3); Alkaline Phosphatase 118 U/L (39-117); Basophils # (Auto) 0.05 K/mcL (0.00-0.30); Basophils % (Auto) 0.3 % (0.0-2.0); Bilirubin,Direct 2.3 mg/dL (<0.3); Blood Urea Nitrogen 7 mg/dL (6-20); Calcium 7.5 mg/dL (8.6-10.4); Carbon Dioxide 25 mmol/L (22-30); Chloride 101 mmol/L (96-108); Eosinophils # (Auto) 0.35 K/mcL (0.00-0.70); Eosinophils % (Auto) 2.4 % (0.0-7.0); Glomerular Filtration Rate 96; Glucose 98 mg/dL (70-105); Hematocrit 28.3 % (40.1-51.0); Hemoglobin 10.2 g/dL (13.7-17.5); Lactate Dehydrogenase 211 U/L (135-225); Lymphocytes # (Auto) 2.84 K/mcL (1.50-4.80); Lymphocytes % (Auto) 19.3 % (15.5-49.0); Mean Cell Volume 107.6 fL (80.0-100.0); Mean Platelet Volume 14.7 fL (8.8-12.5); Monocytes # (Auto) 0.43 K/mcL (0.10-0.90); Monocytes % (Auto) 2.9 % (1.0-12.0); Phosphorous 2.5 mg/dL (2.5-4.5); Platelet Count 36 K/mcL (140-440); RBC 2.63 M/mcL (4.63-6.08); Red Cell Distribution Width 13.8 % (11.5-14.5); Triglycerides 203 mg/dL (<125); Uric Acid 2.9 mg/dL (2.5-8.0); WBC 14.7 K/mcL (4.5-11.0)
[2023-03-22] MEDS: PANTOPRAZOLE 40 MG VIAL IV SCH (08:45)
[2023-03-22] MEDS: CHLORHEXIDINE GLUCONATE 1 ML ORAL.SOL SWABMOUTH SCH ×4 (09:19→22:20)
[2023-03-22] MEDS: PROPOFOL 1,000 MG in PREMIX 1 BAG IV SCH (09:20)
[2023-03-22] MEDS: VANCOMYCIN 750 MG in 0.9 % SODIUM CHLORIDE 250 ML IV SCH (09:20)
[2023-03-22] MEDS: FLUTICASONE PROPIONATE SPRAY.NAS NS SCH (09:21)
--- NOTE | 2023-03-22 10:07 | Internal Med Progress Note ---
SUBJECTIVE Subjective Patient information: Note initiated : 03/22/23 at 10:04 am Service Date, if different from initiated Date: [] Patient: Ej Kimble 18 y/o M admitted on 03/19/23 for fever. Chief Complaint: [] Principal diagnosis: Bilateral renal stones and urosepsis Additional PMFSH (Level 3 Only): Patient is a 18 years old male with history of asthma/reactive airway disease, cerebral palsy, developmental delay, noncommunicative, wheelchair-bound, herpes type II, presented acute onset vomiting, nausea, fever and loose stool. His mother is the main caregiver and contributed to the history. She reported that patient was in normal state of health when suddenly he started vomiting x3, he tensed up his body as if he was in distress. Mother touched/7 for her and it was quite warm to touch, but did not check his temperature. She reported patient had UTI a month ago and was treated with antibiotic. She reports patient does aspirate and is on pured diet. 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 On presentation patient was hypotensive BP 75/39, tachycardia 127 bpm, t achypneic respiratory rate 29, fever 103.3. CBC showed WBC 3.4, hemoglobin 14.4, will lactic acid 4.8, potassium 2.9, procalcitonin 3.47. UA still pending. CT abdomen and pelvis with contrast showed nonobstructing renal calculi bilaterally, obstructing stone in the left mid ureter measuring 10 x 8 x 14 mm, left hydronephrosis and hydroureter. Pyonephrosis is possible. Chest x-ray was unremarkable. EKG showed sinus tachycardia with a rate of 142, normal axis, FL of 97, QRS of 100, QTc of 382, T wave flattening in aVL, and absence of ST elevation or depression. Patient was seen with Dr. Maria from urology and with anesthesiologist in preop room. He remains hypotensive requiring vasopr essor and fluid resuscitation. Patient was admitted for severe sepsis with septic shock, UTI and renal calculi 03/20. Patient is status post bilateral ureteral stent placement, he received 6 L of crystalloids during procedure however became hypotensive. Patient was intubated on Levophed, propofol, fentanyl. Lactic acid was rising however now improving. Renal ultrasound ordered. Abdominal ultrasound ordered. 03/21. On sedation and Levophed. Breathing stable on ventilator. Leukocytosis trended down to 18,000 from 26,000 yesterday. Thrombocytopenia 33K. ABGs 7.3 /. Hypokalemia 2.5. Total bili 2.6. Liver enzymes otherwise stable. MRSA screen negative. Blood culture 03/19 positive for pansensitive E. col. urine culture remains negative. Chest x-ray from this morning reviewed. Increasing parenchymal infiltrate and pleural fluid consistent with fluid volume overload. Echocardiogram is completed and still pending. Plan for sedation vacation 03/22 patient had a chest x-ray done this morning which showed ETT 11 cm above the avel, with Lasix twice daily his right pleural effusion and infiltrates have significantly improved, his ventilator requirements are minimum, he is currently on sedation vacation. Leukocytosis improved to 14,000, hemoglobin stable thrombocytopenia 36,000, potassium low at 2.9 and being replaced, bilirubin trended up to 3.0, AST ALT unremarkable. Review of system Review of system limited as patient is sedated and on ventilator Physical examination General appearance: Appears comfortable, on mechanical ventilation Head Head: Present normocephalic; Absent atraumatic Eye Eye: Present no scleral icterus ENT ENT: Present mucous membranes moist; Absent nasal congestion Neck Neck: Present full ROM; Absent tenderness Chest Chest: Present normal inspection, symmetric chest wall rise and tenderness Respiratory Respiratory: Coarse breath sounds, currently on ventilator Cardiovascular Cardiovascular: Present regular rate, normal rhythm and normal heart sounds Adbominal Abdominal: Present soft and normal bowel sounds; Absent distention or tenderness Rectal Rectal: Present deferred Extremities Extremities: Present normal inspection and full ROM; Absent tenderness Back Back: Present normal inspection and full ROM; Absent tenderness Neurological Neurological: Present alert, moving all limbs Psychiatric Psychiatric: Present no agitation Skin Skin: Present warm (WNL), dry and normal color Assessment Severe sepsis with septic shock, requiring vasopressor Intubated and mechanically ventilated Severe lactic acidosis, now cleared Urinary tract infection, urine culture negative, blood culture positive for E. coli pansensitive Bilateral renal calculi. Left kidney with nonobstructing calculi, right kidney hydronephrosis improving status post bilateral stent placement Obstructing left ureter stone measuring 10 x 8 x 14 mm Left hydronephrosis and hydroureter, status post bilateral ureteral stent placement. Repeat ultrasound with interval resolution of left hydronephrosis. Hypokalemia, severe Will replace aggressively with IV and po kcl Volume overload. Echo with EF 60-65%, normal diastolic function, no valvular dysfunction. Chest x-ray with increasing parenchymal infiltrate and pleural fluid, patient also appears puffy. Will give IV Lasix Reactive airway disease/asthma Cerebral palsy Developmental delay Noncommunicative Plan Patient was extubated. Postextubation excellent ABGs Wean off Levophed as tolerated IV Lasix to continue for today Hyperbilirubinemia may be drug-induced, discontinue Zosyn and start patient on ceftriaxone MRSA screen is negative, discontinue vancomycin Correct hypokalemia with p.o. and IV KCl DVT prophylaxis with SCDs GI prophylaxis Full code Critical care time 55 minutes Constitutional Vitals: Vital Signs Temp Pulse Resp BP Pulse Ox O2 Del Method O2 Flow Rate 99.2 F H 114 H 28 H 114/71 100 Oxymask 6 03/22/23 06:58 03/22/23 08:08 03/22/23 08:08 03/22/23 08:08 03/22/23 08:08 03/22/23 08:08 03/22/23 08:08 Period Temp Pulse Resp BP Sys/Michael Pulse Ox O2 Del Method O2 Flow Rate Last 24 Hr 96.3 F-99.6 F 67-124 12-28 95-114/65-77 92-100 Mechanical V entilation-Oxymask 6 Intake and Output 03/21/23 03/22/23 03/22/23 19:59 03:59 11:59 Intake Total 907 1849 155 Output Total 3530 2745 1160 Balance -2623 -896 -1005 Weight 37.784 kg Intake & Output: Intake & Output 03/21/23 03/22/23 03/22/23 19:59 03:59 11:59 Intake Total 907 1849 155 Output Total 3530 2745 1160 Balance -2623 -896 -1005 Weight 37.784 kg Intake: IV 875 3929 155 Sodium Chloride 0.9% 250 ml @ 250 232 88 20 mls/hr IV .[id number] KATIE Rx#: [id number] Dextrose 5% in Water 1,000 ml @ 1000 50 mls/hr IV .Q20H KATIE Rx#: [id number] Levophed 8 mg In Sodium 250 Chloride 0.9% 242 ml @ 10 MCG/ MIN 18.75 mls/hr IV Q14H [facility] Rx #:[id number] Zosyn 3.375 gm In Dextrose 5% 100 50 50 in Water 50 ml @ 100 mls/hr IV Q6H [facility] Rx#:[id number] Potassium Chloride 40 Meq In 270 270 Dextrose 5% in Water 250 ml @ 67.5 mls/hr IV ONCE ONE Rx#: [id number] Diprivan 1,000 mg In Premix 1 5 15 17 Bag @ 5 MCG/KG/MIN 1.123 mls/hr IV .Q24H [facility] Rx#:[id number] Vancomycin 750 mg In Sodium 250 Chloride 0.9% 250 ml @ 250 mls/ hr IV Q12H [facility] Rx#:[id number] fentaNYL 2,500 MCG In Sodium 12 Chloride 0.9% 200 ml @ 25 MCG/ HR 2.5 mls/hr IV Q24H [facility] Rx#: [id number] Tube Feeding 2 20 GI Tube Flush 30 0 Output: Gastric Drainage 100 75 NG/OG 100 75 Urine Catheter Amount 3430 2670 1160 Other: Urine Appearance Clear Clear Clear Uretheral (Beltre) Clear Clear Urine Color Bright Yellow Yellow Yellow Pale Uretheral (Beltre) Yellow Yellow Pale Pale Stool Size Moderate Small Stool Color Green Green White Stool Consistency Liquid Liquid # of times incontinent of 1 1 Bowels OBJ DATA Labs 03/22/23 05:18 03/22/23 05:18 Labs: Abnormal Lab Results 03/22/23 03/22/23 03/22/23 08:02 05:18 05:18 WBC 14.7 H RBC 2.63 L Hgb 10.2 L Hct 28.3 L MCV 107.6 H MCH 38.8 H Plt Count 36 L* MPV 14.7 H Immature Gran % (Auto) 1.1 H Neut % (Auto) Lymph % (Auto) Meeker % (Auto) Lymph # (Auto) Immature Gran # 0.16 H Absolute Neutrophils 10.88 H POC pH 7.49 H POC pCO2 POC pO2 136 H POC HCO3 27.8 H POC Total CO2 29.0 H POC ABG Base Excess 4.0 H ABG Lactic Acid Hgb O2 Saturation 99.0 H Potassium 2.9 L* Chloride Carbon Dioxide Glucose Calcium 7.5 L Ionized Calcium Kristal Phosphorus Magnesium 1.2 L Total Bilirubin 3.0 H Direct Bilirubin 2.3 H AST 55 H ALT Alkaline Phosphatase 118 H Total Protein 4.6 L Albumin 2.6 L Globulin 2.0 L Prealbumin Triglycerides 203 H Procalcitonin 03/21/23 03/21/23 03/21/23 22:04 15:58 12:03 WBC RBC Hgb Hct MCV MCH Plt Count MPV Immature Gran % (Auto) Neut % (Auto) Lymph % (Auto) Meeker % (Auto) Lymph # (Auto) Immature Gran # Absolute Neutrophils POC pH 7.47 H 7.31 L POC pCO2 32.0 L POC pO2 77 L POC HCO3 19.1 L POC Total CO2 20.0 L POC ABG Base Excess -7.0 L ABG Lactic Acid Hgb O2 Saturation Potassium Chloride Carbon Dioxide Glucose Calcium Ionized Calcium Kristal Phosphorus Magnesium Total Bilirubin Direct Bilirubin AST ALT Alkaline Phosphatase Total Protein Albumin Globulin Prealbumin 6.0 L Triglycerides Procalcitonin 03/21/23 03/21/23 03/20/23 06:00 06:00 19:57 WBC 18.9 H RBC 2.55 L Hgb 9.7 L Hct 27.9 L MCV 109.4 H MCH 38.0 H Plt Count 33 L* MPV Immature Gran % (Auto) 5.9 H Neut % (Auto) Lymph % (Auto) Meeker % (Auto) Lymph # (Auto) Immature Gran # 1.11 H Absolute Neutrophils 13.70 H POC pH POC pCO2 POC pO2 POC HCO3 POC Total CO2 POC ABG Base Excess ABG Lactic Acid Hgb O2 Saturation Potassium 2.5 L* Chloride Carbon Dioxide 21 L 20 L Glucose 150 H Calcium 7.1 L 6.8 L Ionized Calcium Kristal Phosphorus Magnesium Total Bilirubin 2.6 H 2.3 H Direct Bilirubin 1.7 H AST 40 H ALT Alkaline Phosphatase Total Protein 3.9 L 3.8 L Albumin 2.1 L 2.1 L Globulin 1.8 L 1.7 L Prealbumin Triglycerides Procalcitonin 03/20/23 03/20/23 03/20/23 14:02 08:12 05:30 WBC 26.3 H RBC 2.72 L Hgb 10.6 L Hct 29.5 L MCV 108.5 H MCH 39.0 H Plt Count 37 L* MPV Immature Gran % (Auto) 4.8 H Neut % (Auto) 82.5 H Lymph % (Auto) 10.1 L Meeker % (Auto) Lymph # (Auto) Immature Gran # 1.25 H Absolute Neutrophils 21.69 H POC pH 7.57 H POC pCO2 23.9 L* POC pO2 75 L POC HCO3 POC Total CO2 POC ABG Base Excess ABG Lactic Acid Hgb O2 Saturation Potassium Chloride Carbon Dioxide Glucose Calcium Ionized Calcium Kristal Phosphorus Magnesium Total Bilirubin Direct Bilirubin AST ALT Alkaline Phosphatase Total Protein Albumin Globulin Prealbumin Triglycerides Procalcitonin 77.66 H 03/20/23 03/20/23 03/20/23 05:30 04:50 04:50 WBC 38.2 H* RBC 2.97 L Hgb 11.3 L Hct 31.6 L MCV 106.4 H MCH 38.0 H Plt Count 54 L MPV 13.5 H Immature Gran % (Auto) 4.7 H Neut % (Auto) 86.7 H Lymph % (Auto) 7.0 L Meeker % (Auto) Lymph # (Auto) Immature Gran # 1.78 H Absolute Neutrophils 33.12 H POC pH POC pCO2 POC pO2 POC HCO3 POC Total CO2 POC ABG Base Excess ABG Lactic Acid Hgb O2 Saturation Potassium 2.6 L* Chloride Carbon Dioxide 21 L Glucose 163 H Calcium 7.0 L Ionized Calcium Kristal Phosphorus 1.3 L Magnesium 1.4 L Total Bilirubin 2.2 H Direct Bilirubin AST 53 H ALT 40 H Alkaline Phosphatase Total Protein 3.9 L Albumin 2.3 L Globulin 1.6 L Prealbumin Triglycerides Procalcitonin 03/19/23 03/19/23 03/19/23 20:15 20:01 16:22 WBC RBC Hgb Hct MCV MCH Plt Count MPV Immature Gran % (Auto) Neut % (Auto) Lymph % (Auto) Meeker % (Auto) Lymph # (Auto) Immature Gran # Absolute Neutrophils POC pH POC pCO2 27.7 L POC pO2 163 H POC HCO3 17.1 L POC Total CO2 18.0 L POC ABG Base Excess -8.0 L ABG Lactic Acid 4.0 H* Hgb O2 Saturation 100.0 H Potassium 3.1 L 3.1 L Chloride Carbon Dioxide 18 L 17 L Glucose 258 H 223 H Calcium 6.8 L 7.8 L Ionized Calcium Kristal Phosphorus Magnesium Total Bilirubin 2.2 H Direct Bilirubin AST 65 H ALT Alkaline Phosphatase Total Protein 4.2 L Albumin 2.6 L Globulin 1.6 L Prealbumin Triglycerides Procalcitonin 03/19/23 03/19/23 03/19/23 14:18 14:06 10:40 WBC 24.5 H RBC 3.15 L Hgb 12.2 L Hct 36.4 L MCV 115.6 H MCH 38.7 H Plt Count 87 L MPV Immature Gran % (Auto) 1.5 H Neut % (Auto) 96.0 H Lymph % (Auto) 1.5 L Meeker % (Auto) 0.9 L Lymph # (Auto) 0.36 L Immature Gran # 0.37 H Absolute Neutrophils 23.54 H POC pH 7.34 L POC pCO2 25.9 L POC pO2 151 H POC HCO3 14.1 L POC Total CO2 15.0 L POC ABG Base Excess -12.0 L ABG Lactic Acid 8.9 H* Hgb O2 Saturation 99.0 H Potassium 3.0 L Chloride Carbon Dioxide 15 L Glucose 188 H Calcium 7.4 L Ionized Calcium Kristal Phosphorus Magnesium Total Bilirubin Direct Bilirubin AST ALT Alkaline Phosphatase Total Protein Albumin Globulin Prealbumin Triglycerides Procalcitonin 03/19/23 03/19/23 03/19/23 10:40 10:36 08:37 WBC 16.8 H RBC Hgb Hct MCV MCH Plt Count MPV Immature Gran % (Auto) Neut % (Auto) Lymph % (Auto) Meeker % (Auto) Lymph # (Auto) Immature Gran # Absolute Neutrophils POC pH 7.28 L POC pCO2 32.6 L POC pO2 POC HCO3 15.3 L POC Total CO2 16.0 L POC ABG Base Excess -11.0 L ABG Lactic Acid 6.6 H* Hgb O2 Saturation Potassium 2.9 L* Chloride Carbon Dioxide 16 L Glucose Calcium 7.7 L Ionized Calcium Kristal Phosphorus Magnesium Total Bilirubin 1.6 H Direct Bilirubin AST 57 H ALT Alkaline Phosphatase Total Protein 4.2 L Albumin 2.6 L Globulin 1.6 L Prealbumin Triglycerides Procalcitonin 03/19/23 08:36 WBC RBC Hgb Hct MCV MCH Plt Count MPV Immature Gran % (Auto) Neut % (Auto) Lymph % (Auto) Meeker % (Auto) Lymph # (Auto) Immature Gran # Absolute Neutrophils POC pH POC pCO2 POC pO2 POC HCO3 POC Total CO2 POC ABG Base Excess ABG Lactic Acid Hgb O2 Saturation Potassium 2.9 L* Chloride 111 H Carbon Dioxide 14 L Glucose Calcium Ionized Calcium Kristal 0.95 L Phosphorus Magnesium Total Bilirubin Direct Bilirubin AST ALT Alkaline Phosphatase Total Protein Albumin Globulin Prealbumin Triglycerides Procalcitonin Meds: Medications Acetaminophen (Acetaminophen 325 Mg Tablet) 650 mg PO Q4-6HP PRN; Protocol PRN Reason: Per Pain Protocol/Fever > 101 Albuterol Sulfate (Albuterol Sulfate 2.5 Mg/3 Ml Nebulizer) 2.5 mg NEB Q4 KATIE Last Admin: 03/22/23 06:55 Dose: 2.5 mg Baclofen (Baclofen 10 Mg Tablet) 10 mg PO TIDP PRN PRN Reason: Pain Chlorhexidine Gluconate (Chlorhexidine Gluconate 1 Ml Oral.Daniela) 15 ml [place]AB[place]TH BID [facility] Last Admin: 03/22/23 09:19 Dose: 15 ml Chlorhexidine Gluconate (Chlorhexidine Gluconate 1 Ml Oral.Daniela) 15 ml [place] BID [facility] Last Admin: 03/22/23 09:19 Dose: Not Given Diagnostic Test (Pha) (Accu-Chek 1 Each Strip) 1 each FS Q4 [facility] Last Admin: 03/22/23 08:04 Dose: 1 each Fluticasone Propionate (Fluticasone Propionate Nickerson.Man) 2 spray NS DAILY [facility] Last Admin: 03/22/23 09:21 Dose: Not Given Furosemide (Furosemide 20 Mg/2 Ml Vial) 20 mg IV Q12 KATIE Last Admin: 03/22/23 09:19 Dose: 20 mg Sodium Chloride (Sodium Chloride 0.9%) 250 mls @ 20 mls/hr IV .[id number] [facility] Last Admin: 03/22/23 08:05 Dose: Not Given Piperacillin Sod/Tazobactam (Sod 3.375 gm/ Dextrose) 50 mls @ 100 mls/hr IV Q6H KATIE; Protocol Last Infusion: 03/22/23 08:06 Dose: Infused Vasopressin 20 unit/ Dextrose 100 mls @ 6 mls/hr IV Q17H KATIE; Protocol Last Admin: 03/22/23 06:20 Dose: Not Given Acetaminophen (Ofirmev) 650 mg in 65 mls @ 130 mls/hr IV Q6HP PRN; Protocol PRN Reason: PAIN/FEVER > 101 Last Infusion: 03/21/23 03:00 Dose: Infused Fentanyl 2,500 mcg/ Sodium (Chloride) 250 mls @ 2.5 mls/hr IV Q24H KATIE; Protocol Last Titration: 03/21/23 20:00 Dose: 25 mcg/hr, 2.5 mls/hr Norepinephrine Bitartrate 8 mg (/ Sodium Chloride) 250 mls @ 18.75 mls/hr IV Q14H [facility]; Protocol Last Admin: 03/22/23 01:06 Dose: Not Given Dextrose (Dextrose 5% In Water) 1,000 mls @ 50 mls/hr IV .Q20H KATIE Last Admin: 03/21/23 21:20 Dose: 50 mls/hr Vancomycin HCl 750 mg/ Sodium (Chloride) 250 mls @ 250 mls/hr IV Q12H KATIE Last Admin: 03/22/23 09:20 Dose: 250 mls/hr Propofol 1,000 mg/ Premix 100 mls @ 1.123 mls/hr IV .Q24H [facility]; Protocol Last Admin: 03/22/23 09:20 Dose: Not Given Ondansetron HCl (Ondansetron 4 Mg/2 Ml Vial) 4 mg IV Q4-6HP PRN; Protocol PRN Reason: Nausea And Vomiting Pantoprazole Sodium (Pantoprazole 40 Mg Vial) 40 mg IV QAMAC [facility] Last Admin: 03/22/23 08:45 Dose: 40 mg Promethazine HCl/Codeine (Promethazine Hcl/Codeine 1 Ml Syrup) 5 ml PO Q4HP PRN PRN Reason: Cough Sodium Chloride (0.9 % Sodium Chloride 10 Ml Syringe) 10 ml IV Q8 [facility] Last Admin: 03/22/23 05:20 Dose: 10 ml Sodium Chloride (0.9 % Sodium Chloride 10 Ml Syringe) 10 ml IV Q12 [facility] Last Admin: 03/22/23 09:20 Dose: 10 ml Sodium Chloride (0.9 % Sodium Chloride 10 Ml Syringe) 10 ml IV UD PRN PRN Reason: FLUSH Last Admin: 03/22/23 06:15 Dose: 10 ml Vancomycin HCl (Vancomycin Per Pharmacy) 1 order IV UD [facility]; Protocol A/P Time Spent With Patient Time: Total time spent is greater than 50% in coordination of care (as documented) at patient's floor/unit and/or counseling patient: QUALITY VTE Deep Vein Thrombosis/Pulmonary Embolism Present on Admission: No Restraints Restraint In Place: Yes Reason for restraints: Avoid disruption of ETT and IV lines
[2023-03-22] MEDS: ONDANSETRON 4 MG/2 ML VIAL IV PRN ×2 (10:53→20:26)
[2023-03-22] MEDS: cefTRIAXone 1 GM VIAL IV SCH (11:18)
[2023-03-22] MEDS ORDERED: POTASSIUM CHLORIDE 40 MEQ in DEXTROSE 5% IN WATER 250 ML IV ONE ×3 (12:00→20:00)
[2023-03-22] MEDS ORDERED: MAGNESIUM SULFATE 4 GM/100 ML BAG IV ONE ×2 (12:00→18:00)
[2023-03-22] MEDS: DEXTROSE 5%-LR W/20MEQ KCL 1,000 ML IV SCH (17:45)
[2023-03-22] MEDS: fentaNYL 2,500 MCG in 0.9 % SODIUM CHLORIDE 200 ML IV SCH (18:26)
[2023-03-22] MEDS: DEXTROSE 5% IN WATER 1,000 ML IV SCH (18:56)
[2023-03-22] MEDS: HALOPERIDOL LACTATE 5 MG/ML VIAL IV PRN (21:45)
[2023-03-22] MEDS ORDERED: HALOPERIDOL LACTATE 5 MG/ML VIAL ONE (21:52)
[2023-03-23] MEDS: ALBUTEROL SULFATE 2.5 MG/3 ML NEBULIZER NEB SCH ×6 (00:58→20:29)
[2023-03-23] MEDS: NOREPINEPHRINE BITARTRATE 8 MG in 0.9 % SODIUM CHLORIDE 242 ML IV SCH ×2 (00:58→15:21)
[2023-03-23] MEDS: VASOPRESSIN 20 UNIT in DEXTROSE 5% IN WATER 99 ML IV SCH ×2 (01:06→16:53)
[2023-03-23] MEDS ORDERED: DEXTROSE 50% 50 ML VIAL IV PRN (04:47)
[2023-03-23] MEDS ORDERED: DEXTROSE 50% 50 ML SYRINGE IV ONE (05:15)
[2023-03-23] MEDS: 0.9 % SODIUM CHLORIDE 10 ML SYRINGE IV SCH ×5 (05:40→20:47)
[2023-03-23 07:46] LABS: ALT/SGPT 37 U/L (<40); AST/SGOT 51 U/L (<40); Albumin 2.9 gm/dL (3.2-5.2); Albumin/Globulin Ratio 1.2 (1.0-2.3); Alkaline Phosphatase 192 U/L (39-117); Bilirubin,Direct 1.5 mg/dL (<0.3); Bilirubin,Total 2.2 mg/dL (0.1-1.0); Blood Urea Nitrogen 3 mg/dL (6-20); Carbon Dioxide 32 mmol/L (22-30); Chloride 97 mmol/L (96-108); Globulin 2.5 gm/dL (2.2-3.7); Glomerular Filtration Rate 123; Glucose 54 mg/dL (70-105); Lactate Dehydrogenase 254 U/L (135-225); Phosphorous 2.9 mg/dL (2.5-4.5); Triglycerides 203 mg/dL (<125); Uric Acid 3.7 mg/dL (2.5-8.0)
[2023-03-23 08:11] LABS: Basophils # (Auto) 0.03 K/mcL (0.00-0.30); Basophils % (Auto) 0.2 % (0.0-2.0); Eosinophils # (Auto) 0.36 K/mcL (0.00-0.70); Eosinophils % (Auto) 2.5 % (0.0-7.0); Hematocrit 28.8 % (40.1-51.0); Lymphocytes # (Auto) 2.47 K/mcL (1.50-4.80); Lymphocytes % (Auto) 17.2 % (15.5-49.0); Mean Cell Volume 108.7 fL (80.0-100.0); Mean Corpuscular HGB Conc 34.7 g/dL (31.0-36.0); Mean Platelet Volume 15.4 fL (8.8-12.5); Monocytes # (Auto) 0.59 K/mcL (0.10-0.90); Monocytes % (Auto) 4.1 % (1.0-12.0); Neutrophils % (Auto) 75.3 % (38.0-78.0); Platelet Count 40 K/mcL (140-440); RBC 2.65 M/mcL (4.63-6.08); Red Cell Distribution Width 13.6 % (11.5-14.5); WBC 14.4 K/mcL (4.5-11.0)
[2023-03-23] MEDS: PANTOPRAZOLE 40 MG VIAL IV SCH (08:38)
[2023-03-23] MEDS: FLUTICASONE PROPIONATE SPRAY.NAS NS SCH (09:34)
[2023-03-23] MEDS: CHLORHEXIDINE GLUCONATE 1 ML ORAL.SOL SWABMOUTH SCH ×3 (09:34→20:41)
[2023-03-23] MEDS: PROPOFOL 1,000 MG in PREMIX 1 BAG IV SCH (09:35)
--- NOTE | 2023-03-23 10:08 | XRay Report ---
INDICATION: Mechanically Ventilated TECHNIQUE: AP portable supine chest x-ray COMPARISON: Previous examinations dated 03/22/2023, 03/21/2023, 03/20/2023, 03/19/2023 FINDINGS: No change in position a right central venous catheter. Endotracheal tube and esophagogastric tube have been removed Decreased right pleural effusion. Pulmonary parenchymal infiltrates are improved although not entirely resolved. No new abnormality. IMPRESSION: 1. Status post removal of endotracheal tube and esophagogastric tube 2. Improved chest x-ray Interpreted and Authenticated by: Lalito Dao 03/23/23
[2023-03-23] MEDS: FUROSEMIDE 20 MG/2 ML VIAL IV SCH ×2 (10:25→20:40)
[2023-03-23] MEDS: cefTRIAXone 1 GM VIAL IV SCH (10:26)
--- NOTE | 2023-03-23 10:46 | Internal Med Progress Note ---
SUBJECTIVE Subjective Patient information: Note initiated : 03/23/23 at 10:44 am Service Date, if different from initiated Date: [] Patient: Ej Kimble 18 y/o M admitted on 03/19/23 for fever. Chief Complaint: [] Principal diagnosis: Bilateral renal stones and urosepsis Additional PMFSH (Level 3 Only): Patient is a 18 years old male with history of asthma/reactive airway disease, cerebral palsy, developmental delay, noncommunicative, wheelchair-bound, herpes type II, presented acute onset vomiting, nausea, fever and loose stool. His mother is the main caregiver and contributed to the history. She reported that patient was in normal state of health when suddenly he started vomiting x3, he tensed up his body as if he was in distress. Mother touched/7 for her and it was quite warm to touch, but did not check his temperature. She reported patient had UTI a month ago and was treated with antibiotic. She reports patient does aspirate and is on pured diet. 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 On presentation patient was hypotensive BP 75/39, tachycardia 127 bpm, t achypneic respiratory rate 29, fever 103.3. CBC showed WBC 3.4, hemoglobin 14.4, will lactic acid 4.8, potassium 2.9, procalcitonin 3.47. UA still pending. CT abdomen and pelvis with contrast showed nonobstructing renal calculi bilaterally, obstructing stone in the left mid ureter measuring 10 x 8 x 14 mm, left hydronephrosis and hydroureter. Pyonephrosis is possible. Chest x-ray was unremarkable. EKG showed sinus tachycardia with a rate of 142, normal axis, AR of 97, QRS of 100, QTc of 382, T wave flattening in aVL, and absence of ST elevation or depression. Patient was seen with Dr. Maria from urology and with anesthesiologist in preop room. He remains hypotensive requiring vasopr essor and fluid resuscitation. Patient was admitted for severe sepsis with septic shock, UTI and renal calculi 03/20. Patient is status post bilateral ureteral stent placement, he received 6 L of crystalloids during procedure however became hypotensive. Patient was intubated on Levophed, propofol, fentanyl. Lactic acid was rising however now improving. Renal ultrasound ordered. Abdominal ultrasound ordered. 03/21. On sedation and Levophed. Breathing stable on ventilator. Leukocytosis trended down to 18,000 from 26,000 yesterday. Thrombocytopenia 33K. ABGs 7.3 //. Hypokalemia 2.5. Total bili 2.6. Liver enzymes otherwise stable. MRSA screen negative. Blood culture 03/19 positive for pansensitive E. col. urine culture remains negative. Chest x-ray from this morning reviewed. Increasing parenchymal infiltrate and pleural fluid consistent with fluid volume overload. Echocardiogram is completed and still pending. Plan for sedation vacation 03/22 patient had a chest x-ray done this morning which showed ETT 11 cm above the avel, with Lasix twice daily his right pleural effusion and infiltrates have significantly improved, his ventilator requirements are minimum, he is currently on sedation vacation.Leukocytosis improved to 14,000, hemoglobin stable thrombocytopenia 36,000, potassium low at 2.9 and being replaced, bilirubin trended up to 3.0, AST ALT unremarkable. 03/23 postextubation patient has been doing well. He is started drinking Ensure this morning. His bowel movements previously were mucousy and now more color. He is still on Levophed. WBC 14,000, platelets slightly improved to 40,000. Potassium low at 3.0. Bilirubin trending down to 2.2 after discontinuation of Zosyn. Discussed case with Dr. Huggins from surgery to evaluate for gallstones, doubt cholecystitis however surgical evaluation will be helpful. Dr. Huggins graciously accepted to see patient in consultation. Review of system 14 point review of system was obtained with the help of mother. Patient reported no abdominal pain, no nausea or vomiting. No fever or chills Physical examination General appearance: Alert and awake, in no acute distress sitting up comfortably Head Head: Present normocephalic; Absent atraumatic Eye Eye: Present no scleral icterus ENT ENT: Present mucous membranes moist; Absent nasal congestion Neck Neck: Present full ROM; Absent tenderness Chest Chest: Present normal inspection, symmetric chest wall rise and tenderness Respiratory Respiratory: Chest is clear bilaterally, satting well on room air Cardiovascular Cardiovascular: Present regular rate, normal rhythm and normal heart sounds Adbominal Abdominal: Present soft and normal bowel sounds; Absent distention or tenderness Extremities Extremities: Present normal inspection and full ROM; Absent tenderness Back Back: Present normal inspection and full ROM; Absent tenderness Neurological Neurological: Present alert, moving all limbs Psychiatric Psychiatric: Present mood is appropriate, he appears calm Skin Skin: Present warm (WNL), dry and normal color Assessment Severe sepsis with septic shock, requiring vasopressor, currently weaning off Levophed Intubated and mechanical ventilation, extubated 03/22 doing well. Satting well on room air Severe lactic acidosis, cleared Urinary tract infection, urine culture negative, blood culture positive for E. coli pansensitive, on ceftriaxone Bilateral renal calculi. Left kidney with nonobstructing calculi, right kidney hydronephrosis improving status post bilateral stent placement. Will need outpatient follow-up with urology Obstructing left ureter stone measuring 10 x 8 x 14 mm, see above Left hydronephrosis and hydroureter, status post bilateral ureteral stent placement. Repeat ultrasound with interval resolution of left hydronephrosis. Hypokalemia, severe Will replace aggressively with IV and po kcl Volume overload. Echo with EF 60-65%, normal diastolic function, no valvular dysfunction. Chest x-ray with increasing parenchymal infiltrate and pleural fluid, patient also appears puffy. Will give IV Lasix Reactive airway disease/asthma Cerebral palsy Developmental delay Noncommunicative Plan Continue ceftriaxone, will need 10 to 14 days of antibiotics Wean off Levophed as tolerated Bilirubin improving, likely drug-induced from Zosyn which was discontinued Dr. Huggins consulted, graciously accepted to see patient in consultation Vancomycin was discontinued since MRSA was negative. Correct hypokalemia with p.o. and IV KCl DVT prophylaxis with SCDs GI prophylaxis Full code Critical care time 55 minutes Constitutional Vitals: Vital Signs Temp Pulse Resp BP Pulse Ox O2 Del Method O2 Flow Rate 97.3 F 84 18 101/66 93 Room Air 2 03/23/23 08:58 03/23/23 08:58 03/23/23 08:58 03/23/23 07:49 03/23/23 08:58 03/23/23 08:58 03/23/23 07:02 Period Temp Pulse Resp BP Sys/Michael Pulse Ox O2 Del Method O2 Flow Rate Last 24 Hr 97.3 F-98.5 F 65-102 10-04 81-104/50-67 91-98 Nasal Cannula- Room Air 2-5 Intake and Output 03/22/23 03/23/23 03/23/23 19:59 03:59 11:59 Intake Total 1940 382 Output Total 1799 1989 450 Balance 141 -1608 -450 Weight 33.203 kg 33.203 kg Patient Weight 03/24/23 03:59 Weight 33.203 kg Intake & Output: Intake & Output 03/22/23 03/23/23 03/23/23 19:59 03:59 11:59 Intake Total 1940 382 Output Total 1799 1989 450 Balance 141 -1608 -450 Weight 33.203 kg 33.203 kg Intake: IV 1940 Sodium Chloride 0.9% 250 ml @ 0 20 mls/hr IV .[id number] [facility] Rx#: [id number] Dextrose 5% in Water 1,000 ml @ 1000 50 mls/hr IV .Q20H [facility] Rx#: [id number] Levophed 8 mg In Sodium 51 12 Chloride 0.9% 242 ml @ 10 MCG/ MIN 18.75 mls/hr IV Q14H [facility] Rx #:[id number] Potassium Chloride 40 Meq In 540 270 Dextrose 5% in Water 250 ml @ 67.5 mls/hr IV ONCE ONE Rx#: [id number] Diprivan 1,000 mg In Premix 1 0 Bag @ 5 MCG/KG/MIN 1.123 mls/hr IV .Q24H [facility] Rx#:[id number] Vancomycin 750 mg In Sodium 250 Chloride 0.9% 250 ml @ 250 mls/ hr IV Q12H [facility] Rx#:[id number] fentaNYL 2,500 MCG In Sodium 0 Chloride 0.9% 200 ml @ 25 MCG/ HR 2.5 mls/hr IV Q24H [facility] Rx#: [id number] Output: Urine Catheter Amount 1799 Other: Urine Appearance Clear Clear Clear Uretheral (Beltre) Clear Clear Urine Color Yellow Yellow Light [place] Uretheral (Beltre) Yellow Yellow Stool Size Small Stool Color Pale White Stool Consistency Liquid Liquid # of times incontinent of 1 Bowels OBJ DATA Labs 03/23/23 05:10 03/23/23 05:10 Labs: Abnormal Lab Results 03/23/23 03/23/23 03/22/23 05:10 05:10 08:02 WBC 14.4 H RBC 2.65 L Hgb 10.0 L Hct 28.8 L MCV 108.7 H MCH 37.7 H Plt Count 40 L* MPV 15.4 H Immature Gran % (Auto) 0.7 H Neut % (Auto) Lymph % (Auto) Immature Gran # 0.10 H Absolute Neutrophils 10.81 H POC pH 7.49 H POC pCO2 POC pO2 136 H POC HCO3 27.8 H POC Total CO2 29.0 H POC ABG Base Excess 4.0 H Hgb O2 Saturation 99.0 H Potassium 3.0 L Carbon Dioxide 32 H BUN 3 L Glucose 54 L Calcium 8.0 L Magnesium Total Bilirubin 2.2 H Direct Bilirubin 1.5 H AST 51 H Alkaline Phosphatase 192 H Lactate Dehydrogenase 254 H Total Protein 5.4 L Albumin 2.9 L Globulin Prealbumin Triglycerides 203 H 03/22/23 03/22/23 03/21/23 05:18 05:18 22:04 WBC 14.7 H RBC 2.63 L Hgb 10.2 L Hct 28.3 L MCV 107.6 H MCH 38.8 H Plt Count 36 L* MPV 14.7 H Immature Gran % (Auto) 1.1 H Neut % (Auto) Lymph % (Auto) Immature Gran # 0.16 H Absolute Neutrophils 10.88 H POC pH 7.47 H POC pCO2 32.0 L POC pO2 POC HCO3 POC Total CO2 POC ABG Base Excess Hgb O2 Saturation Potassium 2.9 L* Carbon Dioxide BUN Glucose Calcium 7.5 L Magnesium 1.2 L Total Bilirubin 3.0 H Direct Bilirubin 2.3 H AST 55 H Alkaline Phosphatase 118 H Lactate Dehydrogenase Total Protein 4.6 L Albumin 2.6 L Globulin 2.0 L Prealbumin Triglycerides 203 H 03/21/23 03/21/23 03/21/23 15:58 12:03 06:00 WBC RBC Hgb Hct MCV MCH Plt Count MPV Immature Gran % (Auto) Neut % (Auto) Lymph % (Auto) Immature Gran # Absolute Neutrophils POC pH 7.31 L POC pCO2 POC pO2 77 L POC HCO3 19.1 L POC Total CO2 20.0 L POC ABG Base Excess -7.0 L Hgb O2 Saturation Potassium 2.5 L* Carbon Dioxide 21 L BUN Glucose Calcium 7.1 L Magnesium Total Bilirubin 2.6 H Direct Bilirubin AST 40 H Alkaline Phosphatase Lactate Dehydrogenase Total Protein 3.9 L Albumin 2.1 L Globulin 1.8 L Prealbumin 6.0 L Triglycerides 03/21/23 03/20/23 03/20/23 06:00 19:57 14:02 WBC 18.9 H 26.3 H RBC 2.55 L 2.72 L Hgb 9.7 L 10.6 L Hct 27.9 L 29.5 L MCV 109.4 H 108.5 H MCH 38.0 H 39.0 H Plt Count 33 L* 37 L* MPV Immature Gran % (Auto) 5.9 H 4.8 H Neut % (Auto) 82.5 H Lymph % (Auto) 10.1 L Immature Gran # 1.11 H 1.25 H Absolute Neutrophils 13.70 H 21.69 H POC pH POC pCO2 POC pO2 POC HCO3 POC Total CO2 POC ABG Base Excess Hgb O2 Saturation Potassium Carbon Dioxide 20 L BUN Glucose 150 H Calcium 6.8 L Magnesium Total Bilirubin 2.3 H Direct Bilirubin 1.7 H AST Alkaline Phosphatase Lactate Dehydrogenase Total Protein 3.8 L Albumin 2.1 L Globulin 1.7 L Prealbumin Triglycerides Meds: Medications Acetaminophen (Acetaminophen 325 Mg Tablet) 650 mg PO Q4-6HP PRN; Protocol PRN Reason: Per Pain Protocol/Fever > 101 Albuterol Sulfate (Albuterol Sulfate 2.5 Mg/3 Ml Nebulizer) 2.5 mg NEB Q4 [facility] Last Admin: 03/23/23 07:02 Dose: 2.5 mg Baclofen (Baclofen 10 Mg Tablet) 10 mg PO TIDP PRN PRN Reason: Pain Ceftriaxone Sodium (Ceftriaxone 1 Gm Vial) 1 gm IV DAILY [facility]; Protocol Last Admin: 03/23/23 10:26 Dose: 1 gm Chlorhexidine Gluconate (Chlorhexidine Gluconate 1 Ml Oral.Daniela) 15 ml [place] BID [facility] Last Admin: 03/22/23 22:19 Dose: 15 ml Chlorhexidine Gluconate (Chlorhexidine Gluconate 1 Ml Oral.Daniela) 15 ml [place] BID [facility] Last Admin: 03/23/23 09:34 Dose: Not Given Dextrose (Dextrose 50% 50 Ml Vial) 25 ml IV UD PRN PRN Reason: Hypoglycemia Last Admin: 03/23/23 05:47 Dose: 25 ml Diagnostic Test (Pha) (Accu-Chek 1 Each Strip) 1 each FS Q4 [facility] Last Admin: 03/23/23 08:38 Dose: 1 each Fluticasone Propionate (Fluticasone Propionate [place].Man) 2 spray NS DAILY [facility] Last Admin: 03/23/23 09:34 Dose: Not Given Furosemide (Furosemide 20 Mg/2 Ml Vial) 20 mg IV Q12 [facility] Last Admin: 03/23/23 10:25 Dose: 20 mg Haloperidol Lactate (Haloperidol Lactate 5 Mg/Ml Vial) 2.5 mg IV Q2HP PRN PRN Reason: ANXIETY/SEDATION Last Admin: 03/22/23 21:45 Dose: 2.5 mg Vasopressin 20 unit/ Dextrose 100 mls @ 6 mls/hr IV Q17H [facility]; Protocol Last Admin: 03/23/23 01:06 Dose: Not Given Acetaminophen (Ofirmev) 650 mg in 65 mls @ 130 mls/hr IV Q6HP PRN; Protocol PRN Reason: PAIN/FEVER > 101 Last Infusion: 03/21/23 03:00 Dose: Infused Fentanyl 2,500 mcg/ Sodium (Chloride) 250 mls @ 2.5 mls/hr IV Q24H [facility]; Protocol Last Titration: 03/22/23 18:28 Dose: Infused Norepinephrine Bitartrate 8 mg (/ Sodium Chloride) 250 mls @ 18.75 mls/hr IV Q14H [facility]; Protocol Last Admin: 03/23/23 00:58 Dose: Not Given Propofol 1,000 mg/ Premix 100 mls @ 1.123 mls/hr IV .Q24H [facility]; Protocol Last Admin: 03/23/23 09:35 Dose: Not Given Potassium Cl/Dextrose/Lact Ringer's (Dextrose 5%-Lr W/20meq Kcl) 1,000 mls @ 50 mls/hr IV .Q20H [facility] Last Admin: 03/22/23 17:45 Dose: 50 mls/hr Ondansetron HCl (Ondansetron 4 Mg/2 Ml Vial) 4 mg IV Q4-6HP PRN; Protocol PRN Reason: Nausea And Vomiting Last Admin: 03/22/23 20:26 Dose: 4 mg Pantoprazole Sodium (Pantoprazole 40 Mg Vial) 40 mg IV QAMAC [facility] Last Admin: 03/23/23 08:38 Dose: 40 mg Promethazine HCl/Codeine (Promethazine Hcl/Codeine 1 Ml Syrup) 5 ml PO Q4HP PRN PRN Reason: Cough Sodium Chloride (0.9 % Sodium Chloride 10 Ml Syringe) 10 ml IV Q8 [facility] Last Admin: 03/23/23 05:40 Dose: 10 ml Sodium Chloride (0.9 % Sodium Chloride 10 Ml Syringe) 10 ml IV Q12 [facility] Last Admin: 03/23/23 10:26 Dose: 10 ml Sodium Chloride (0.9 % Sodium Chloride 10 Ml Syringe) 10 ml IV UD PRN PRN Reason: FLUSH Last Admin: 03/22/23 21:59 Dose: 10 ml A/P Time Spent With Patient Time: Total time spent is greater than 50% in coordination of care (as documented) at patient's floor/unit and/or counseling patient: QUALITY VTE Deep Vein Thrombosis/Pulmonary Embolism Present on Admission: No Restraints Restraint In Place: No
[2023-03-23] MEDS: POTASSIUM CHLORIDE 20 MEQ/15 ML ML PO SCH ×3 (12:48→19:19)
[2023-03-23] MEDS: DEXTROSE 5%-LR W/20MEQ KCL 1,000 ML IV SCH (13:55)
--- NOTE | 2023-03-23 14:21 | Internal Med Progress Note ---
SUBJECTIVE Subjective Patient information: Note initiated : 03/23/23 at 2:08 pm Service Date, if different from initiated Date: [] Patient: Ej Kimble 18 y/o M admitted on 03/19/23 for fever. Chief Complaint: [] Principal diagnosis: Bilateral renal stones and urosepsis Interval history: Patient is a 18 years old male with history of asthma/reactive airway disease, cerebral palsy, developmental delay, noncommunicative, wheelchair-bound, herpes type II, presented acute onset vomiting, nausea, fever and loose stool. His mother is the main caregiver and contributed to the history. She reported that patient was in normal state of health when suddenly he started vomiting x3, he tensed up his body as if he was in distress. Mother touched/7 for her and it was quite warm to touch, but did not check his temperature. She reported patient had UTI a month ago and was treated with antibiotic. She reports patient does aspirate and is on pured diet. 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 On presentation patient was hypotensive BP 75/39, tachycardia 127 bpm, tachypneic respiratory rate 29, fever 103.3. CBC showed WBC 3.4, hemoglobin 14.4, will lactic acid 4.8, potassium 2.9, procalcitonin 3.47. UA still pending. CT abdomen and pelvis with contrast showed nonobstructing renal calculi bilaterally, obstructing stone in the left mid ureter measuring 10 x 8 x 14 mm, left hydronephrosis and hydroureter. Pyonephrosis is possible. Chest x-ray was unremarkable. EKG showed sinus tachycardia with a rate of 142, normal axis, NE of 97, QRS of 100, QTc of 382, T wave flattening in aVL, and absence of ST elevation or depression. Patient was seen with Dr. Maria from urology and with anesthesiologist in preop room. He remains hypotensive requiring vasopressor and fluid resuscitation. Patient was admitted for severe sepsis with septic shock, UTI and renal calculi 03/20. Patient is status post bilateral ureteral stent placement, he received 6 L of crystalloids during procedure however became hypotensive. Patient was intubated on Levophed, propofol, fentanyl. Lactic acid was rising however now improving. Renal ultrasound ordered. Abdominal ultrasound ordered. 03/21. On sedation and Levophed. Breathing stable on ventilator. Leukocytosis trended down to 18,000 from 26,000 yesterday. Thrombocytopenia 33K. ABGs 7.3 //. Hypokalemia 2.5. Total bili 2.6. Liver enzymes otherwise stable. MRSA screen negative. Blood culture 03/19 positive for pansensitive E. col. urine culture remains negative. Chest x-ray from this morning reviewed. Increasing parenchymal infiltrate and pleural fluid consistent with fluid volume overload. Echocardiogram is completed and still pending. Plan for sedation vacation 03/22 patient had a chest x-ray done this morning which showed ETT 11 cm above the avel, with Lasix twice daily his right pleural effusion and infiltrates have significantly improved, his ventilator requirements are minimum, he is currently on sedation vacation.Leukocytosis improved to 14,000, hemoglobin stable thrombocytopenia 36,000, potassium low at 2.9 and being replaced, bilirubin trended up to 3.0, AST ALT unremarkable. 03/23 postextubation patient has been doing well. He is started drinking Ensure this morning. His bowel movements previously were mucousy and now more color. He is still on Levophed. WBC 14,000, platelets slightly improved to 40,000. Potassium low at 3.0. Bilirubin trending down to 2.2 after discontinuation of Zosyn. Discussed case with Dr. Huggins from surgery to evaluate for gallstones, doubt cholecystitis however surgical evaluation will be helpful. Dr. Huggins graciously accepted to see patient in consultation. 03/24 Review of Systems: denies headache/fever/chills/nausea/vomiting/chest or abdominal pain/cough/dyspnea/diarrhea. Otherwise see above. PHYSICAL EXAM General: Alert, Awake, No acute Distress Eyes/N/T: EOMI, no scleral icterus, Head/Neck: neck supple, full ROM, normocephalic atraumatic CV: RRR, No murmurs, Pulm: Clear b/l, no wheezing/rhonchi/rales, no respiratory distress Abd: soft, nontender, +BS x4 Ext: no clubbing/cyanosis/edema, nontender Neuro: Alert, no focal deficits, moves all extremities, , sensations intact b/l upper/lower Psychiatric: Skin: warm/dry, normal color Constitutional Vitals: Vital Signs Temp Pulse Resp BP Pulse Ox O2 Del Method O2 Flow Rate 97.4 F 81 16 102/60 93 Room Air 2 03/23/23 12:42 03/23/23 13:02 03/23/23 13:02 03/23/23 12:42 03/23/23 13:02 03/23/23 12:00 03/23/23 07:02 Period Temp Pulse Resp BP Sys/Michael Pulse Ox O2 Del Method O2 Flow Rate Last 24 Hr 97.3 F-98.5 F 65-102 - 81-102/50-66 90-98 Nasal Cannula- Room Air 2-2 Intake and Output 03/23/23 03/23/23 03/23/23 03:59 11:59 19:59 Intake Total 216 286 5160 Output Total 1989 890 550 Balance -1608 -790 512 Weight 33.203 kg 33.203 kg Patient Weight 03/24/23 03:59 Weight 33.203 kg Intake & Output: Intake & Output 03/23/23 03/23/23 03/23/23 03:59 11:59 19:59 Intake Total 198 875 7605 Output Total 1989 890 550 Balance -1608 -790 512 Weight 33.203 kg 33.203 kg Intake: IV 382 1062 Dextrose 5%-Lr W/20Meq KCl 1, 1000 000 ml @ 50 mls/hr IV .Q20H [facility] Rx#:[id number] Levophed 8 mg In Sodium 12 62 Chloride 0.9% 242 ml @ 10 MCG/ MIN 18.75 mls/hr IV Q14H [facility] Rx #:[id number] Potassium Chloride 40 Meq In 270 Dextrose 5% in Water 250 ml @ 67.5 mls/hr IV ONCE ONE Rx#: [id number] Oral 100 Output: Urine Catheter Amount 1989 420 550 Other: Urine Appearance Clear Clear Clear Uretheral (Beltre) Clear Clear Urine Color Yellow Dark Yellow Pale Uretheral (Beltre) Yellow Yellow Stool Size Small Moderate Stool Color Pale Green White Stool Consistency Liquid Liquid # of times incontinent of 1 1 Bowels OBJ DATA Labs 03/23/23 05:10 03/23/23 05:10 Labs: Abnormal Lab Results 03/23/23 03/23/23 03/22/23 05:10 05:10 08:02 WBC 14.4 H RBC 2.65 L Hgb 10.0 L Hct 28.8 L MCV 108.7 H MCH 37.7 H Plt Count 40 L* MPV 15.4 H Immature Gran % (Auto) 0.7 H Neut % (Auto) Lymph % (Auto) Immature Gran # 0.10 H Absolute Neutrophils 10.81 H POC pH 7.49 H POC pCO2 POC pO2 136 H POC HCO3 27.8 H POC Total CO2 29.0 H POC ABG Base Excess 4.0 H Hgb O2 Saturation 99.0 H Potassium 3.0 L Carbon Dioxide 32 H BUN 3 L Glucose 54 L Calcium 8.0 L Magnesium Total Bilirubin 2.2 H Direct Bilirubin 1.5 H AST 51 H Alkaline Phosphatase 192 H Lactate Dehydrogenase 254 H Total Protein 5.4 L Albumin 2.9 L Globulin Prealbumin Triglycerides 203 H 03/22/23 03/22/23 03/21/23 05:18 05:18 22:04 WBC 14.7 H RBC 2.63 L Hgb 10.2 L Hct 28.3 L MCV 107.6 H MCH 38.8 H Plt Count 36 L* MPV 14.7 H Immature Gran % (Auto) 1.1 H Neut % (Auto) Lymph % (Auto) Immature Gran # 0.16 H Absolute Neutrophils 10.88 H POC pH 7.47 H POC pCO2 32.0 L POC pO2 POC HCO3 POC Total CO2 POC ABG Base Excess Hgb O2 Saturation Potassium 2.9 L* Carbon Dioxide BUN Glucose Calcium 7.5 L Magnesium 1.2 L Total Bilirubin 3.0 H Direct Bilirubin 2.3 H AST 55 H Alkaline Phosphatase 118 H Lactate Dehydrogenase Total Protein 4.6 L Albumin 2.6 L Globulin 2.0 L Prealbumin Triglycerides 203 H 03/21/23 03/21/23 03/21/23 15:58 12:03 06:00 WBC RBC Hgb Hct MCV MCH Plt Count MPV Immature Gran % (Auto) Neut % (Auto) Lymph % (Auto) Immature Gran # Absolute Neutrophils POC pH 7.31 L POC pCO2 POC pO2 77 L POC HCO3 19.1 L POC Total CO2 20.0 L POC ABG Base Excess -7.0 L Hgb O2 Saturation Potassium 2.5 L* Carbon Dioxide 21 L BUN Glucose Calcium 7.1 L Magnesium Total Bilirubin 2.6 H Direct Bilirubin AST 40 H Alkaline Phosphatase Lactate Dehydrogenase Total Protein 3.9 L Albumin 2.1 L Globulin 1.8 L Prealbumin 6.0 L Triglycerides 03/21/23 03/20/23 03/20/23 06:00 19:57 14:02 WBC 18.9 H 26.3 H RBC 2.55 L 2.72 L Hgb 9.7 L 10.6 L Hct 27.9 L 29.5 L MCV 109.4 H 108.5 H MCH 38.0 H 39.0 H Plt Count 33 L* 37 L* MPV Immature Gran % (Auto) 5.9 H 4.8 H Neut % (Auto) 82.5 H Lymph % (Auto) 10.1 L Immature Gran # 1.11 H 1.25 H Absolute Neutrophils 13.70 H 21.69 H POC pH POC pCO2 POC pO2 POC HCO3 POC Total CO2 POC ABG Base Excess Hgb O2 Saturation Potassium Carbon Dioxide 20 L BUN Glucose 150 H Calcium 6.8 L Magnesium Total Bilirubin 2.3 H Direct Bilirubin 1.7 H AST Alkaline Phosphatase Lactate Dehydrogenase Total Protein 3.8 L Albumin 2.1 L Globulin 1.7 L Prealbumin Triglycerides Meds: Medications Acetaminophen (Acetaminophen 325 Mg Tablet) 650 mg PO Q4-6HP PRN; Protocol PRN Reason: Per Pain Protocol/Fever > 101 Albuterol Sulfate (Albuterol Sulfate 2.5 Mg/3 Ml Nebulizer) 2.5 mg NEB Q4 KATIE Last Admin: 03/23/23 11:53 Dose: Not Given Baclofen (Baclofen 10 Mg Tablet) 10 mg PO TIDP PRN PRN Reason: Pain Ceftriaxone Sodium (Ceftriaxone 1 Gm Vial) 1 gm IV DAILY KATIE; Protocol Last Admin: 03/23/23 10:26 Dose: 1 gm Chlorhexidine Gluconate (Chlorhexidine Gluconate 1 Ml Oral.Daniela) 15 ml [place] BID KATIE Last Admin: 03/23/23 12:48 Dose: 15 ml Chlorhexidine Gluconate (Chlorhexidine Gluconate 1 Ml Oral.Daniela) 15 ml [place] BID [facility] Last Admin: 03/23/23 09:34 Dose: Not Given Dextrose (Dextrose 50% 50 Ml Vial) 25 ml IV UD PRN PRN Reason: Hypoglycemia Last Admin: 03/23/23 05:47 Dose: 25 ml Diagnostic Test (Pha) (Accu-Chek 1 Each Strip) 1 each FS Q4 KATIE Last Admin: 03/23/23 13:39 Dose: 1 each Fluticasone Propionate (Fluticasone Propionate [place].Man) 2 spray NS DAILY [facility] Last Admin: 03/23/23 09:34 Dose: Not Given Furosemide (Furosemide 20 Mg/2 Ml Vial) 20 mg IV Q12 KATIE Last Admin: 03/23/23 10:25 Dose: 20 mg Haloperidol Lactate (Haloperidol Lactate 5 Mg/Ml Vial) 2.5 mg IV Q2HP PRN PRN Reason: ANXIETY/SEDATION Last Admin: 03/22/23 21:45 Dose: 2.5 mg Vasopressin 20 unit/ Dextrose 100 mls @ 6 mls/hr IV Q17H KATIE; Protocol Last Admin: 03/23/23 01:06 Dose: Not Given Acetaminophen (Ofirmev) 650 mg in 65 mls @ 130 mls/hr IV Q6HP PRN; Protocol PRN Reason: PAIN/FEVER > 101 Last Infusion: 03/21/23 03:00 Dose: Infused Fentanyl 2,500 mcg/ Sodium (Chloride) 250 mls @ 2.5 mls/hr IV Q24H KATIE; Protocol Last Titration: 03/22/23 18:28 Dose: Infused Norepinephrine Bitartrate 8 mg (/ Sodium Chloride) 250 mls @ 18.75 mls/hr IV Q14H KATIE; Protocol Last Titration: 03/23/23 12:30 Dose: 0 mcg/min, 0 mls/hr Propofol 1,000 mg/ Premix 100 mls @ 1.123 mls/hr IV .Q24H KATIE; Protocol Last Admin: 03/23/23 09:35 Dose: Not Given Potassium Cl/Dextrose/Lact Ringer's (Dextrose 5%-Lr W/20meq Kcl) 1,000 mls @ 50 mls/hr IV .Q20H KATIE Last Admin: 03/23/23 13:55 Dose: 50 mls/hr Ondansetron HCl (Ondansetron 4 Mg/2 Ml Vial) 4 mg IV Q4-6HP PRN; Protocol PRN Reason: Nausea And Vomiting Last Admin: 03/22/23 20:26 Dose: 4 mg Pantoprazole Sodium (Pantoprazole 40 Mg Vial) 40 mg IV QAMAC [facility] Last Admin: 03/23/23 08:38 Dose: 40 mg Potassium Chloride (Potassium Chloride 20 Meq/15 Ml Ml) 40 meq PO Q4H KATIE Stop: 03/23/23 19:01 Last Admin: 03/23/23 12:48 Dose: 40 meq Promethazine HCl/Codeine (Promethazine Hcl/Codeine 1 Ml Syrup) 5 ml PO Q4HP PRN PRN Reason: Cough Sodium Chloride (0.9 % Sodium Chloride 10 Ml Syringe) 10 ml IV Q8 KATIE Last Admin: 03/23/23 05:40 Dose: 10 ml Sodium Chloride (0.9 % Sodium Chloride 10 Ml Syringe) 10 ml IV Q12 KATIE Last Admin: 03/23/23 10:26 Dose: 10 ml Sodium Chloride (0.9 % Sodium Chloride 10 Ml Syringe) 10 ml IV UD PRN PRN Reason: FLUSH Last Admin: 03/22/23 21:59 Dose: 10 ml A/P Narrative A/P Narrative: Assessment: *Septic shock: -vasopressor currently weaning off Levophed *Intubated and mechanical ventilation -extubated 03/22 doing well. Satting well on room air *Severe lactic acidosis, cleared: *UTI( ): blood culture positive for E. coli pansensitive *Bacteremia(e.coli): 2/2 above *Bilateral renal calculi Left obstructing s/p bilateral stent placement -Left hydronephrosis and hydroureter: 2/2 above -Repeat ultrasound after stenting with interval resolution of left hydronephrosis. *Hypokalemia, severe: *Volume overload: -Echo with EF 60-65%, normal diastolic function, no valvular dysfunction -Chest x-ray with increasing parenchymal infiltrate and pleural fluid, patient also appears puffy *Reactive airway disease/asthma: *Thrombocytopenia,chronic: *Anemia, chronic: *Leukocytosis, chronic: *Cerebral palsy/Developmental delay/Noncommunicative: Plan: -Continue ceftriaxone, will need 10 to 14 days of antibiotics -Wean off Levophed as tolerated -Bilirubin improving, likely drug-induced from Zosyn which was discontinued -Dr. Maria following, continue Beltre -Dr. Huggins consulted, graciously accepted to see patient in consultation to eval for choleycystitis -Correct hypokalemia with p.o. and IV KCl -prn lasix -Will need outpatient follow-up with urology -ppx: SCD(hold chemical for plt<50k) / ppi Time Spent With Patient Time: Total time spent is greater than 50% in coordination of care (as documented) at patient's floor/unit and/or counseling patient: QUALITY VTE Deep Vein Thrombosis/Pulmonary Embolism Present on Admission: No
[2023-03-23] MEDS: fentaNYL 2,500 MCG in 0.9 % SODIUM CHLORIDE 200 ML IV SCH (20:42)
[2023-03-23] MEDS ORDERED: ENOXAPARIN 30 MG/0.3 ML SYRINGE SQ SCH (21:00)
[2023-03-23] MEDS ORDERED: CLOTRIMAZOLE CRM 1% 1 DOSE TUBE TOPICAL PRN (21:19)
[2023-03-24] MEDS: HALOPERIDOL LACTATE 5 MG/ML VIAL IV PRN
[2023-03-24] MEDS: ALBUTEROL SULFATE 2.5 MG/3 ML NEBULIZER NEB SCH ×7 (00:16→23:52)
[2023-03-24] MEDS: NOREPINEPHRINE BITARTRATE 8 MG in 0.9 % SODIUM CHLORIDE 242 ML IV SCH (05:46)
[2023-03-24] MEDS: 0.9 % SODIUM CHLORIDE 10 ML SYRINGE IV SCH ×4 (05:51→20:24)
[2023-03-24 06:53] LABS: Basophils # (Auto) 0.02 K/mcL (0.00-0.30); Basophils % (Auto) 0.2 % (0.0-2.0); Eosinophils # (Auto) 0.23 K/mcL (0.00-0.70); Eosinophils % (Auto) 2.2 % (0.0-7.0); Hematocrit 30.2 % (40.1-51.0); Hemoglobin 10.2 g/dL (13.7-17.5); Lymphocytes # (Auto) 2.08 K/mcL (1.50-4.80); Lymphocytes % (Auto) 19.9 % (15.5-49.0); Mean Cell Volume 112.3 fL (80.0-100.0); Mean Corpuscular HGB Conc 33.8 g/dL (31.0-36.0); Mean Platelet Volume 14.8 fL (8.8-12.5); Monocytes # (Auto) 0.68 K/mcL (0.10-0.90); Monocytes % (Auto) 6.5 % (1.0-12.0); Neutrophils % (Auto) 70.2 % (38.0-78.0); Platelet Count 52 K/mcL (140-440); RBC 2.69 M/mcL (4.63-6.08); Red Cell Distribution Width 14.3 % (11.5-14.5); WBC 10.5 K/mcL (4.5-11.0)
[2023-03-24 07:01] LABS: ALT/SGPT 36 U/L (<40); AST/SGOT 36 U/L (<40); Albumin 3.2 gm/dL (3.2-5.2); Albumin/Globulin Ratio 1.1 (1.0-2.3); Alkaline Phosphatase 187 U/L (39-117); Bilirubin,Direct 0.9 mg/dL (<0.3); Bilirubin,Total 1.4 mg/dL (0.1-1.0); Blood Urea Nitrogen 3 mg/dL (6-20); Calcium 8.5 mg/dL (8.6-10.4); Carbon Dioxide 31 mmol/L (22-30); Chloride 103 mmol/L (96-108); Globulin 2.8 gm/dL (2.2-3.7); Glomerular Filtration Rate 108; Glucose 117 mg/dL (70-105); Lactate Dehydrogenase 201 U/L (135-225); Phosphorous 3.3 mg/dL (2.5-4.5); Triglycerides 178 mg/dL (<125); Uric Acid 5.7 mg/dL (2.5-8.0)
--- NOTE | 2023-03-24 07:43 | EKG ---
[facility] Test Date: 2023-03-18 Pat Name: Ej Kimble Department: ED Room: Gender: Male Demolitionist: : [id number] Requested By: Sudhakar De La Fuente Order Number: [id number] Reading MD: Lalito Fagan M.D. Measurements Intervals [place] Rate: 142 P: 61 HI: 97 QRS: 71 QRSD: 100 T: 241 QT: 249 QTc: 382 Interpretive Statements Sinus tachycardia Electronically Signed On 03-24-2023 7:43:28 PDT by Lalito Fagan M.D. /store/[id number]
--- NOTE | 2023-03-24 08:24 | Internal Med Progress Note ---
SUBJECTIVE Subjective Patient information: Note initiated : 03/24/23 at 8:17 am Service Date, if different from initiated Date: [] Patient: Ej Kimble 18 y/o M admitted on 03/19/23 for fever. Chief Complaint: [] Principal diagnosis: Bilateral renal stones and urosepsis Interval history: Patient is a 18 years old male with history of asthma/reactive airway disease, cerebral palsy, developmental delay, noncommunicative, wheelchair-bound, herpes type II, presented acute onset vomiting, nausea, fever and loose stool. His mother is the main caregiver and contributed to the history. She reported that patient was in normal state of health when suddenly he started vomiting x3, he tensed up his body as if he was in distress. Mother touched/7 for her and it was quite warm to touch, but did not check his temperature. She reported patient had UTI a month ago and was treated with antibiotic. She reports patient does aspirate and is on pured diet. 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 On presentation patient was hypotensive BP 75/39, tachycardia 127 bpm, tachypneic respiratory rate 29, fever 103.3. CBC showed WBC 3.4, hemoglobin 14.4, will lactic acid 4.8, potassium 2.9, procalcitonin 3.47. UA still pending. CT abdomen and pelvis with contrast showed nonobstructing renal calculi bilaterally, obstructing stone in the left mid ureter measuring 10 x 8 x 14 mm, left hydronephrosis and hydroureter. Pyonephrosis is possible. Chest x-ray was unremarkable. EKG showed sinus tachycardia with a rate of 142, normal axis, IL of 97, QRS of 100, QTc of 382, T wave flattening in aVL, and absence of ST elevation or depression. Patient was seen with Dr. Marai from urology and with anesthesiologist in preop room. He remains hypotensive requiring vasopressor and fluid resuscitation. Patient was admitted for severe sepsis with septic shock, UTI and renal calculi 03/20. Patient is status post bilateral ureteral stent placement, he received 6 L of crystalloids during procedure however became hypotensive. Patient was intubated on Levophed, propofol, fentanyl. Lactic acid was rising however now improving. Renal ultrasound ordered. Abdominal ultrasound ordered. 03/21. On sedation and Levophed. Breathing stable on ventilator. Leukocytosis trended down to 18,000 from 26,000 yesterday. Thrombocytopenia 33K. ABGs 7.3 //. Hypokalemia 2.5. Total bili 2.6. Liver enzymes otherwise stable. MRSA screen negative. Blood culture 03/19 positive for pansensitive E. col. urine culture remains negative. Chest x-ray from this morning reviewed. Increasing parenchymal infiltrate and pleural fluid consistent with fluid volume overload. Echocardiogram is completed and still pending. Plan for sedation vacation 03/22 patient had a chest x-ray done this morning which showed ETT 11 cm above the avel, with Lasix twice daily his right pleural effusion and infiltrates have significantly improved, his ventilator requirements are minimum, he is currently on sedation vacation.Leukocytosis improved to 14,000, hemoglobin stable thrombocytopenia 36,000, potassium low at 2.9 and being replaced, bilirubin trended up to 3.0, AST ALT unremarkable. 03/23 postextubation patient has been doing well. He is started drinking Ensure this morning. His bowel movements previously were mucousy and now more color. He is still on Levophed. WBC 14,000, platelets slightly improved to 40,000. Potassium low at 3.0. Bilirubin trending down to 2.2 after discontinuation of Zosyn. Discussed case with Dr. Huggins from surgery to evaluate for gallstones, doubt cholecystitis however surgical evaluation will be helpful. Dr. Huggins graciously accepted to see patient in consultation. 03/24 No overnight event or new complaints. Patient is off Levophed and vasopressin. Mother at bedside. Leukocytosis resolved. Follow-up chest x-ray pending. On room air he will drop to 88-89%. Mom says he typically runs about 93% at home normally. chest x-ray did show pleural effusions and infiltrates which have been improving daily. Hypokalemia improved. Review of Systems: Unable to obtain given cerebral palsy and nonverbal status. PHYSICAL EXAM General: Alert, Awake, No acute Distress Eyes/N/T: EOMI, no scleral icterus, Head/Neck: neck supple, full ROM, normocephalic atraumatic CV: RRR, No murmurs, Pulm: Clear b/l, no wheezing/rhonchi/rales, no respiratory distress Abd: soft, nontender, +BS x4 Ext: no clubbing/cyanosis/edema, nontender Neuro: Alert, no focal deficits, moves all extremities, , sensations intact b/l upper/lower Psychiatric: Skin: warm/dry, normal color Constitutional Vitals: Vital Signs Temp Pulse Resp BP Pulse Ox O2 Del Method O2 Flow Rate 98.3 F 105 H 20 94/63 95 Nasal Cannula 2 03/24/23 04:00 03/24/23 07:25 03/24/23 07:25 03/23/23 15:27 03/24/23 07:25 03/24/23 07:25 03/24/23 07:25 Period Temp Pulse Resp BP Sys/Michael Pulse Ox O2 Del Method O2 Flow Rate Last 24 Hr 97.3 F-98.3 F 71-119 - 94-102/60-65 69-100 Nasal Cannula- Room Air 0-2 Intake and Output 03/23/23 03/24/23 03/24/23 19:59 03:59 11:59 Intake Total 1190 120 Output Total 1270 955 340 Balance -80 -835 -340 Weight 32.795 kg Intake & Output: Intake & Output 03/23/23 03/24/23 03/24/23 19:59 03:59 11:59 Intake Total 1190 120 Output Total 1270 955 340 Balance -80 -835 -340 Weight 32.795 kg Intake: IV 1062 Dextrose 5%-Lr W/20Meq KCl 1, 1000 000 ml @ 50 mls/hr IV .Q20H KATIE Rx#:[id number] Levophed 8 mg In Sodium 62 Chloride 0.9% 242 ml @ 10 MCG/ MIN 18.75 mls/hr IV Q14H KATIE Rx #:[id number] Oral 128 120 Output: Urine Catheter Amount 1270 955 340 Other: Urine Appearance Clear Clear Clear Uretheral (Beltre) Clear Clear Urine Color Yellow Pale Yellow Uretheral (Beltre) Yellow Yellow Pale Stool Size Large Small Stool Color Green Green Stool Consistency Loose Loose # Bowel Movements 1 1 # of times incontinent of 1 1 1 Bowels OBJ DATA Labs 03/24/23 05:28 03/24/23 05:28 Labs: Abnormal Lab Results 03/24/23 03/24/23 03/23/23 05:28 05:28 05:10 WBC 14.4 H RBC 2.69 L 2.65 L Hgb 10.2 L 10.0 L Hct 30.2 L 28.8 L MCV 112.3 H 108.7 H MCH 37.9 H 37.7 H Plt Count 52 L 40 L* MPV 14.8 H 15.4 H Immature Gran % (Auto) 1.0 H 0.7 H Immature Gran # 0.10 H 0.10 H Absolute Neutrophils 10.81 H POC pH POC pCO2 POC pO2 POC HCO3 POC Total CO2 POC ABG Base Excess Hgb O2 Saturation Potassium Carbon Dioxide 31 H BUN 3 L Glucose 117 H Calcium 8.5 L Magnesium Total Bilirubin 1.4 H Direct Bilirubin 0.9 H AST Alkaline Phosphatase 187 H Lactate Dehydrogenase Total Protein Albumin Globulin Prealbumin Triglycerides 178 H 03/23/23 03/22/23 03/22/23 05:10 08:02 05:18 WBC 14.7 H RBC 2.63 L Hgb 10.2 L Hct 28.3 L MCV 107.6 H MCH 38.8 H Plt Count 36 L* MPV 14.7 H Immature Gran % (Auto) 1.1 H Immature Gran # 0.16 H Absolute Neutrophils 10.88 H POC pH 7.49 H POC pCO2 POC pO2 136 H POC HCO3 27.8 H POC Total CO2 29.0 H POC ABG Base Excess 4.0 H Hgb O2 Saturation 99.0 H Potassium 3.0 L Carbon Dioxide 32 H BUN 3 L Glucose 54 L Calcium 8.0 L Magnesium Total Bilirubin 2.2 H Direct Bilirubin 1.5 H AST 51 H Alkaline Phosphatase 192 H Lactate Dehydrogenase 254 H Total Protein 5.4 L Albumin 2.9 L Globulin Prealbumin Triglycerides 203 H 03/22/23 03/21/23 03/21/23 05:18 22:04 15:58 WBC RBC Hgb Hct MCV MCH Plt Count MPV Immature Gran % (Auto) Immature Gran # Absolute Neutrophils POC pH 7.47 H POC pCO2 32.0 L POC pO2 POC HCO3 POC Total CO2 POC ABG Base Excess Hgb O2 Saturation Potassium 2.9 L* Carbon Dioxide BUN Glucose Calcium 7.5 L Magnesium 1.2 L Total Bilirubin 3.0 H Direct Bilirubin 2.3 H AST 55 H Alkaline Phosphatase 118 H Lactate Dehydrogenase Total Protein 4.6 L Albumin 2.6 L Globulin 2.0 L Prealbumin 6.0 L Triglycerides 203 H 03/21/23 03/21/23 12:03 06:00 WBC RBC Hgb Hct MCV MCH Plt Count MPV Immature Gran % (Auto) Immature Gran # 1.11 H Absolute Neutrophils POC pH 7.31 L POC pCO2 POC pO2 77 L POC HCO3 19.1 L POC Total CO2 20.0 L POC ABG Base Excess -7.0 L Hgb O2 Saturation Potassium Carbon Dioxide BUN Glucose Calcium Magnesium Total Bilirubin Direct Bilirubin AST Alkaline Phosphatase Lactate Dehydrogenase Total Protein Albumin Globulin Prealbumin Triglycerides Meds: Medications Acetaminophen (Acetaminophen 325 Mg Tablet) 650 mg PO Q4-6HP PRN; Protocol PRN Reason: Per Pain Protocol/Fever > 101 Albuterol Sulfate (Albuterol Sulfate 2.5 Mg/3 Ml Nebulizer) 2.5 mg NEB Q4 KATIE Last Admin: 03/24/23 07:25 Dose: 2.5 mg Baclofen (Baclofen 10 Mg Tablet) 10 mg PO TIDP PRN PRN Reason: Pain Ceftriaxone Sodium (Ceftriaxone 1 Gm Vial) 1 gm IV DAILY KATIE; Protocol Last Admin: 03/23/23 10:26 Dose: 1 gm Clotrimazole (Clotrimazole Crm 1% 1 Dose Tube) 1 dose TOPICAL PRN PRN PRN Reason: Itching Dextrose (Dextrose 50% 50 Ml Vial) 25 ml IV UD PRN PRN Reason: Hypoglycemia Last Admin: 03/23/23 05:47 Dose: 25 ml Diagnostic Test (Pha) (Accu-Chek 1 Each Strip) 1 each FS Q4 KATIE Last Admin: 03/24/23 04:00 Dose: 1 each Fluticasone Propionate (Fluticasone Propionate Brimley.Man) 2 spray NS DAILY KATIE Last Admin: 03/23/23 09:34 Dose: Not Given Furosemide (Furosemide 20 Mg/2 Ml Vial) 20 mg IV Q12 KATIE Last Admin: 03/23/23 20:40 Dose: 20 mg Haloperidol Lactate (Haloperidol Lactate 5 Mg/Ml Vial) 2.5 mg IV Q2HP PRN PRN Reason: ANXIETY/SEDATION Last Admin: 03/24/23 00:00 Dose: 2.5 mg Vasopressin 20 unit/ Dextrose 100 mls @ 6 mls/hr IV Q17H KATIE; Protocol Last Admin: 03/23/23 16:53 Dose: Not Given Acetaminophen (Ofirmev) 650 mg in 65 mls @ 130 mls/hr IV Q6HP PRN; Protocol PRN Reason: PAIN/FEVER > 101 Last Infusion: 03/21/23 03:00 Dose: Infused Fentanyl 2,500 mcg/ Sodium (Chloride) 250 mls @ 2.5 mls/hr IV Q24H [facility]; Protocol Last Admin: 03/23/23 20:42 Dose: Not Given Norepinephrine Bitartrate 8 mg (/ Sodium Chloride) 250 mls @ 18.75 mls/hr IV Q14H KATIE; Protocol Last Admin: 03/24/23 05:46 Dose: Not Given Propofol 1,000 mg/ Premix 100 mls @ 1.123 mls/hr IV .Q24H KATIE; Protocol Last Admin: 03/23/23 09:35 Dose: Not Given Potassium Cl/Dextrose/Lact Ringer's (Dextrose 5%-Lr W/20meq Kcl) 1,000 mls @ 50 mls/hr IV .Q20H [facility] Last Admin: 03/23/23 13:55 Dose: 50 mls/hr Ondansetron HCl (Ondansetron 4 Mg/2 Ml Vial) 4 mg IV Q4-6HP PRN; Protocol PRN Reason: Nausea And Vomiting Last Admin: 03/22/23 20:26 Dose: 4 mg Pantoprazole Sodium (Pantoprazole 40 Mg Vial) 40 mg IV QAMAC [facility] Last Admin: 03/23/23 08:38 Dose: 40 mg Promethazine HCl/Codeine (Promethazine Hcl/Codeine 1 Ml Syrup) 5 ml PO Q4HP PRN PRN Reason: Cough Sodium Chloride (0.9 % Sodium Chloride 10 Ml Syringe) 10 ml IV Q8 [facility] Last Admin: 03/24/23 05:51 Dose: 10 ml Sodium Chloride (0.9 % Sodium Chloride 10 Ml Syringe) 10 ml IV Q12 KATIE Last Admin: 03/23/23 20:47 Dose: 10 ml Sodium Chloride (0.9 % Sodium Chloride 10 Ml Syringe) 10 ml IV UD PRN PRN Reason: FLUSH Last Admin: 03/22/23 21:59 Dose: 10 ml A/P Narrative A/P Narrative: Assessment: *Septic shock: 2/2 uti -vasopressor weaned off -Leukocytosis improving *Intubated and mechanical ventilation: -extubated 03/22 doing well. *Severe lactic acidosis, cleared: *UTI( ): blood culture positive for E. coli pansensitive *Bacteremia(e.coli): 2/2 above *Bilateral renal calculi Left obstructing: s/p bilateral stent placement (03/19) *Left hydronephrosis and hydroureter: 2/2 above -Repeat ultrasound after stenting with interval resolution of left hydronephrosis. *Hypokalemia, severe: improving *Volume overload: -Echo with EF 60-65%, normal diastolic function, no valvular dysfunction -Chest x-ray with increasing parenchymal infiltrate and pleural fluid, patient also appears puffy *Reactive airway disease/asthma: *Thrombocytopenia,chronic: *Anemia, chronic: *Leukocytosis, chronic: *Cerebral palsy/Developmental delay/Noncommunicative: *GERD: Plan: -Continue ceftriaxone, will need 10 to 14 days of antibiotics -Monitor renal function/UOP/electrolytes and replace as needed -Bilirubin improving, likely drug-induced from Zosyn which was discontinued -Dr. Maria following, continue Beltre -Correct hypokalemia with p.o. and IV KCl -prn lasix -Will need outpatient follow-up with urology -ppx: SCD(hold chemical for plt<50k) / home ppi Time Spent With Patient Time: Total time spent is greater than 50% in coordination of care (as documented) at patient's floor/unit and/or counseling patient: Subsequent: Total time with patient: 50 - 65 Minutes QUALITY VTE Deep Vein Thrombosis/Pulmonary Embolism Present on Admission: No Restraints Restraint In Place: No
[2023-03-24] MEDS: PANTOPRAZOLE 40 MG VIAL IV SCH (09:05)
[2023-03-24] MEDS: cefTRIAXone 1 GM VIAL IV SCH (09:06)
[2023-03-24] MEDS: FUROSEMIDE 20 MG/2 ML VIAL IV SCH (10:12)
[2023-03-24] MEDS: DEXTROSE 5%-LR W/20MEQ KCL 1,000 ML IV SCH (10:40)
[2023-03-24] MEDS: PROPOFOL 1,000 MG in PREMIX 1 BAG IV SCH (10:41)
[2023-03-24] MEDS: FLUTICASONE PROPIONATE SPRAY.NAS NS SCH (11:03)
[2023-03-24] MEDS: VASOPRESSIN 20 UNIT in DEXTROSE 5% IN WATER 99 ML IV SCH (11:04)
--- NOTE | 2023-03-24 11:05 | Discharge Summary ---
Discharge Provider Provider IMPORTANT FOLLOW-UP INFORMATION FOR PCP: Patient information: Note initiated : 03/24/23 at 11:03 am Service Date, if different from initiated Date: [] Patient: Ej Kimble 18 y/o M admitted on 03/19/23 for fever. Chief Complaint: [] Date of admission: 03/19/23 09:33 Discharge date: 03/25/23 Consults: 03/19/23 Consult to Physician [CONS] Stat Comment: Consulting Provider: Rafat Maria Reason For Exam: Physician to Consult Consult to Physician [CONS] Stat Comment: Consulting Provider: Taras Ivory Reason For Exam: Physician to Consult 03/23/23 10:57 Consult to Physician [CONS] Routine Comment: Gallstones, pericholecystic fluid ? cholecystitis. Consulting Provider: Wisam Huggins Reason For Exam: Physician to Consult COURSE Hospital Course Hospital course: Principal diagnosis: Bilateral renal stones and urosepsis Interval history: Patient is a 18 years old male with history of asthma/reactive airway disease, cerebral palsy, developmental delay, noncommunicative, wheelchair-bound, herpes type II, presented acute onset vomiting, nausea, fever and loose stool. His mother is the main caregiver and contributed to the history. She reported that patient was in normal state of health when suddenly he started vomiting x3, he tensed up his body as if he was in distress. Mother touched/7 for her and it was quite warm to touch, but did not check his temperature. She reported patient had UTI a month ago and was treated with antibiotic. She reports patient does aspirate and is on pured diet. 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 On presentation patient was hypotensive BP 75/39, tachycardia 127 bpm, tachypneic respiratory rate 29, fever 103.3. CBC showed WBC 3.4, hemoglobin 14.4, will lactic acid 4.8, potassium 2.9, procalcitonin 3.47. UA still pending. CT abdomen and pelvis with contrast showed nonobstructing renal calculi bilaterally, obstructing stone in the left mid ureter measuring 10 x 8 x 14 mm, left hydronephrosis and hydroureter. Pyonephrosis is possible. Chest x-ray was unremarkable. EKG showed sinus tachycardia with a rate of 142, normal axis, AL of 97, QRS of 100, QTc of 382, T wave flattening in aVL, and absence of ST elevation or depression. Patient was seen with Dr. Maria from urology and with anesthesiologist in preop room. He remains hypotensive requiring vasopressor and fluid resuscitation. Patient was admitted for severe sepsis with septic shock, UTI and renal calculi 03/20. Patient is status post bilateral ureteral stent placement, he received 6 L of crystalloids during procedure however became hypotensive. Patient was intubated on Levophed, propofol, fentanyl. Lactic acid was rising however now improving. Renal ultrasound ordered. Abdominal ultrasound ordered. 03/21. On sedation and Levophed. Breathing stable on ventilator. Leukocytosis trended down to 18,000 from 26,000 yesterday. Thrombocytopenia 33K. ABGs 7.3 /. Hypokalemia 2.5. Total bili 2.6. Liver enzymes otherwise stable. MRSA screen negative. Blood culture 03/19 positive for pansensitive E. col. urine culture remains negative. Chest x-ray from this morning reviewed. Increasing parenchymal infiltrate and pleural fluid consistent with fluid volume overload. Echocardiogram is completed and still pending. Plan for sedation vacation 03/22 patient had a chest x-ray done this morning which showed ETT 11 cm above the avel, with Lasix twice daily his right pleural effusion and infiltrates have significantly improved, his ventilator requirements are minimum, he is currently on sedation vacation.Leukocytosis improved to 14,000, hemoglobin stable thrombocytopenia 36,000, potassium low at 2.9 and being replaced, bilirubin trended up to 3.0, AST ALT unremarkable. 03/23 postextubation patient has been doing well. He is started drinking Ensure this morning. His bowel movements previously were mucousy and now more color. He is still on Levophed. WBC 14,000, platelets slightly improved to 40,000. Potassium low at 3.0. Bilirubin trending down to 2.2 after discontinuation of Zosyn. Discussed case with Dr. Huggins from surgery to evaluate for gallstones, doubt cholecystitis however surgical evaluation will be helpful. Dr. Huggins graciously accepted to see patient in consultation. 03/24 No overnight event or new complaints. Patient is off Levophed and vasopressin. Mother at bedside. Leukocytosis resolved. Follow-up chest x-ray pending. On room air he will drop to 88-89%. Mom says he typically runs about 93% at home normally. chest x-ray did show pleural effusions and infiltrates which have been improving daily. Hypokalemia improved. 03/25 Laboratory stable. No overnight events. Patient for discharge and follow-up with Dr. Maria. Assessment: *Septic shock: 2/2 uti *Intubated and mechanical ventilation: *Severe lactic acidosis, cleared: *UTI( ): blood culture positive for E. coli pansensitive *Bacteremia(e.coli): 2/2 above *Bilateral renal calculi Left obstructing: s/p bilateral stent placement (03/19) *Left hydronephrosis and hydroureter: 2/2 above *Hypokalemia, severe: *Volume overload: -Echo with EF 60-65%, normal diastolic function, no valvular dysfunction *Reactive airway disease/asthma: *Thrombocytopenia,chronic: *Anemia, chronic: *Leukocytosis, chronic: *Cerebral palsy/Developmental delay/Noncommunicative: *GERD: Plan: -10 to 14 days of antibiotics -Dr. Maria follow up, continue Beltre until seen Discharge diagnosis: Obstructive uropathy with UTI bacteremia sepsis hydronephrosis hydroureter Secondary discharge diagnosis: Volume overload hypokalemia reactive airway thrombocytopenia anemia leukocytosis cerebral palsy developmental delay GERD Time Spent with Patient Time attestation: Total time spent providing and/or coordinating discharge services: Time spent: Greater than 30 minutes EXAM Constitutional Vitals: Temp Pulse Resp BP Pulse Ox O2 Del Method O2 Flow Rate 97.9 F 85 17 100/62 95 Nasal Cannula 1 03/24/23 08:00 03/24/23 10:31 03/24/23 10:31 03/24/23 10:31 03/24/23 10:31 03/24/23 10:31 03/24/23 10:31 Discharge Data Data Completed and Pending Labs on day of discharge: Labs from last 24 hours 03/24/23 03/24/23 05:28 05:28 WBC 10.5 RBC 2.69 L Hgb 10.2 L Hct 30.2 L MCV 112.3 H MCH 37.9 H MCHC 33.8 RDW 14.3 Plt Count 52 L MPV 14.8 H Immature Gran % (Auto) 1.0 H Neut % (Auto) 70.2 Lymph % (Auto) 19.9 Stanton % (Auto) 6.5 Eos % (Auto) 2.2 Baso % (Auto) 0.2 Lymph # (Auto) 2.08 Stanton # (Auto) 0.68 Eos # (Auto) 0.23 Baso # (Auto) 0.02 Immature Gran # 0.10 H Absolute Neutrophils 7.36 Sodium 144 Potassium 3.4 Chloride 103 Carbon Dioxide 31 H Anion Gap 10.0 BUN 3 L Creatinine 1.0 GFR Calculation 108 Glucose 117 H Uric Acid 5.7 Calcium 8.5 L Phosphorus 3.3 Magnesium 1.7 Total Bilirubin 1.4 H Direct Bilirubin 0.9 H GGT 35 AST 36 ALT 36 Alkaline Phosphatase 187 H Lactate Dehydrogenase 201 Total Protein 6.0 Albumin 3.2 Globulin 2.8 Albumin/Globulin Ratio 1.1 Triglycerides 178 H Discharge Plan Patient/Caregiver Discharge Instructions Activity: increase activity as tolerated Activity Restrictions/Additional Instructions: Follow-up with PCP in 3 to 7 days. Prescriptions: New levofloxacin 500 mg tablet 500 mg PO Q24H Qty: 4 0RF Rx Instructions: to start on 03/26/2023. Continued omeprazole magnesium 10 mg oral suspension,delayed release 10 mg 20 mg PO HS diphenhydramine HCl 50 mg Capsule 50 mg PO QHS baclofen 10 mg tablet 10 mg PO Q12 budesonide 0.5 mg/2 mL suspension for nebulization 0.5 mg inhalation QDP PRN (Reason: asthma) clotrimazole 1 % cream 1 applic topical TIDP PRN (Reason: Rash) Qty: 1 0RF Changed albuterol sulfate 2.5 MG/3 ML solution for nebulization 2.5 mg IH PRN PRN (Reason: Wheezing) Qty: 90 0RF Follow Up Plan Follow up with: Rafat Maria MD [Physician] - Yolande Blandon ARNP [Nurse Practitioner] - Patient Disposition: Home, Self-Care Prognosis: Fair Overall status at discharge: patient is progressing back to baseline Discharge Orders: Discharge Order (Routine); Ordered 03/25/23 Ordered By: Ricky Manuel [facility] VTE Deep Vein Thrombosis/Pulmonary Embolism Present on Admission: No
--- NOTE | 2023-03-24 13:50 | XRay Report ---
CLINICAL INFORMATION: Mechanically Ventilated COMPARISON: 03/23/2023 FINDINGS: Heart size, mediastinum and pulmonary vessels are normal. Right IJ central line is stable satisfactory position. Vague residual right perihilar infiltrate shows continued improvement. No effusions. IMPRESSION: Vague residual right perihilar infiltrate/improving. Interpreted and Authenticated by: Lalito Pastor 03/24/23
--- NOTE | 2023-03-24 23:59 | General Surgery Consult Note ---
HPI Date of Consult Consult Date: 03/24/23 Requesting physician: Taras Ivory Consult Narrative Patient Information: Note initiated : 03/24/23 at 11:58 pm Service Date, if different from initiated Date: [] Patient: Ej Kimble a 18 y/o M admitted on 03/19/23 for fever. Chief Complaint: [] Ej is seen in consultation today after findings of gallstones and pericholecystic fluid in the wake of a bout of severe urosepsis that required significant pressor and fluid support. Imaging has included both an Abdominal CT scan as well as RUQ US. He has not any noted complaint of RUQ Pain although communication is often difficult. His mom who is his primary caregiver has not seen any evidence of that he has had manifestations of pain up in that area. Additionally, he had some elevated LFTs that have been largely trending down since with an impression that he might have had some component of shock liver. Chief complaint: Cholelithiasis Reason for consult: Possibly Symptomatic Cholelithiasis cc:: CC: Rafat Maria MD Review of Systems ROS unobtainable: due to mental status All systems: reviewed and no additional remarkable complaints except as stated PFSH PFSH All Active Problems Cholelithiasis (Acute) Herpes simplex (Acute) Bronchitis (Acute) Conjunctivitis (Acute) Abdominal pain (Acute) Upper respiratory infection (Acute) Reactive airway disease (Acute) Fall (Acute) Chin laceration (Acute) Cerebral palsy (Acute) Wound, open, finger (Acute) Acute UTI (urinary tract infection) (Acute) Sepsis secondary to UTI (Acute) Bilateral renal stones (Acute) Left ureteral stone (Acute) Hydronephrosis, left (Acute) Fever (Acute) Leukocytosis (Acute) Hypotension (Acute) Tachycardia (Acute) Kidney stone (Acute) Sepsis (Acute) Social History smoking status: Never smoker alcohol intake frequency: does not drink substance use type: does not use MEDS/ALLERGIES Home Medications and Allergies Home Medications Medication Instructions Recorded Confirmed Type baclofen 10 mg tablet 10 mg PO Q12 03/19/23 03/19/23 History budesonide 0.5 mg/2 mL suspension 0.5 mg inhalation QDP PRN asthma 03/19/23 03/19/23 History for nebulization diphenhydramine HCl 50 mg capsule 50 mg PO QHS 03/19/23 03/19/23 History omeprazole magnesium 20 mg PO HS 03/19/23 03/19/23 History albuterol sulfate 2.5 mg/3 mL 2.5 mg (3 mL) IH PRN PRN Wheezing 03/25/23 Rx (0.083 %) solution for nebulization #90 mL clotrimazole 1 % topical cream 1 applic topical TIDP PRN Rash #1 03/25/23 Rx tube levofloxacin 500 mg tablet 500 mg PO Q24H #4 tabs 03/25/23 Rx Allergies Allergy/AdvReac Type Severity Reaction Status Date / Time No Known Drug Intolerances Allergy Unknown None Verified 03/24/23 07:23 milk AdvReac Mild Gastrointestinal Verified 03/19/23 19:20 Upset Physical Examination Vital Signs Vital signs: Temp Pulse Resp BP Pulse Ox O2 Del Method O2 Flow Rate 98.2 F 93 H 18 109/70 98 Room Air 2 03/24/23 20:00 03/24/23 20:26 03/24/23 20:26 03/24/23 20:00 03/24/23 20:26 03/24/23 20:26 03/24/23 20:00 General physical appearance General physical exam: other (does not appear in any acute distress ) Eyes Eye exam: negative icteric Head Head exam IM: Present atraumatic and normocephalic Neck Neck exam: trachea midline and no lymphadenopathy Cardiovascular Cardiovascular exam IM: Present RRR Respiratory Respiratory exam: normal respiratory effort Abdomen Abdomen: Present soft (soft and non tender, non distended) Integumentary Integumentary: Present no rash (normal appearing intact skin ) Psychiatric Psychiatric: Present oriented to time, oriented to person and oriented to place Results Labs 03/24/23 05:28 03/24/23 05:28 Labs: Abnormal lab results 03/24/23 03/24/23 Range/Units 05:28 05:28 RBC 2.69 L (4.63-6.08) M/mcL Hgb 10.2 L (13.7-17.5) g/dL Hct 30.2 L (40.1-51.0) % MCV 112.3 H (80.0-100.0) fL MCH 37.9 H (26.0-34.0) pg Plt Count 52 L (140-440) K/mcL MPV 14.8 H (8.8-12.5) fL Immature Gran % (Auto) 1.0 H (0.0-0.5) % Immature Gran # 0.10 H (0.00-0.05) K/mcl Carbon Dioxide 31 H (22-30) mmol/L BUN 3 L (6-20) mg/dL Glucose 117 H (70-105) mg/dL Calcium 8.5 L (8.6-10.4) mg/dL Total Bilirubin 1.4 H (0.1-1.0) mg/dL Direct Bilirubin 0.9 H (<0.3) mg/dL Alkaline Phosphatase 187 H (39-117) U/L Triglycerides 178 H (<125) mg/dL Diabetes panel 03/24/23 Range/Units 05:28 Sodium 144 (133-145) mmol/L Potassium 3.4 (3.3-5.1) mmol/L Chloride 103 (96-108) mmol/L Carbon Dioxide 31 H (22-30) mmol/L BUN 3 L (6-20) mg/dL Creatinine 1.0 (0.7-1.2) mg/dL Glucose 117 H (70-105) mg/dL Calcium 8.5 L (8.6-10.4) mg/dL AST 36 (<40) U/L ALT 36 (<40) U/L Alkaline Phosphatase 187 H (39-117) U/L Total Protein 6.0 (5.9-8.4) gm/dL Albumin 3.2 (3.2-5.2) gm/dL Triglycerides 178 H (<125) mg/dL Calcium panel 03/24/23 Range/Units 05:28 Calcium 8.5 L (8.6-10.4) mg/dL Phosphorus 3.3 (2.5-4.5) mg/dL Albumin 3.2 (3.2-5.2) gm/dL Pituitary panel 03/24/23 Range/Units 05:28 Sodium 144 (133-145) mmol/L Potassium 3.4 (3.3-5.1) mmol/L Chloride 103 (96-108) mmol/L Carbon Dioxide 31 H (22-30) mmol/L BUN 3 L (6-20) mg/dL Creatinine 1.0 (0.7-1.2) mg/dL Glucose 117 H (70-105) mg/dL Calcium 8.5 L (8.6-10.4) mg/dL Adrenal panel 03/24/23 Range/Units 05:28 Sodium 144 (133-145) mmol/L Potassium 3.4 (3.3-5.1) mmol/L Chloride 103 (96-108) mmol/L Carbon Dioxide 31 H (22-30) mmol/L BUN 3 L (6-20) mg/dL Creatinine 1.0 (0.7-1.2) mg/dL Glucose 117 H (70-105) mg/dL Calcium 8.5 L (8.6-10.4) mg/dL Total Bilirubin 1.4 H (0.1-1.0) mg/dL AST 36 (<40) U/L ALT 36 (<40) U/L Alkaline Phosphatase 187 H (39-117) U/L Total Protein 6.0 (5.9-8.4) gm/dL Albumin 3.2 (3.2-5.2) gm/dL All other labs normal. A/P Assessment and plan (1) Cholelithiasis: Assessment and plan: Cholelithiasis There's no strongly suggestive evidence that he symptomatic stones and I don't recommend surgery at this time It's possible he passed a small stone with an LFT bump but those numbers are normalizing now and the severe bout of sepsis seems a credible explanation We can certainly re evaluate over time and if it becomes clear at a later date that he having symptomatic stones, then Cholecystectomy should be considered Status: Acute Time Spent With Patient Time: Total time spent is greater than 50% in coordination of care (as documented) at patient's floor/unit and/or counseling patient:
[2023-03-25] MEDS: ALBUTEROL SULFATE 2.5 MG/3 ML NEBULIZER NEB SCH ×3 (04:29→11:04)
--- NOTE | 2023-03-25 07:35 | Internal Med Progress Note ---
SUBJECTIVE Subjective Patient information: Note initiated : 03/25/23 at 7:35 am Service Date, if different from initiated Date: [] Patient: Ej Kimble 18 y/o M admitted on 03/19/23 for fever. Chief Complaint: [] Principal diagnosis: Bilateral renal stones and urosepsis Interval history: Patient is a 18 years old male with history of asthma/reactive airway disease, cerebral palsy, developmental delay, noncommunicative, wheelchair-bound, herpes type II, presented acute onset vomiting, nausea, fever and loose stool. His mother is the main caregiver and contributed to the history. She reported that patient was in normal state of health when suddenly he started vomiting x3, he tensed up his body as if he was in distress. Mother touched/7 for her and it was quite warm to touch, but did not check his temperature. She reported patient had UTI a month ago and was treated with antibiotic. She reports patient does aspirate and is on pured diet. 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 On presentation patient was hypotensive BP 75/39, tachycardia 127 bpm, tachypneic respiratory rate 29, fever 103.3. CBC showed WBC 3.4, hemoglobin 14.4, will lactic acid 4.8, potassium 2.9, procalcitonin 3.47. UA still pending. CT abdomen and pelvis with contrast showed nonobstructing renal calculi bilaterally, obstructing stone in the left mid ureter measuring 10 x 8 x 14 mm, left hydronephrosis and hydroureter. Pyonephrosis is possible. Chest x-ray was unremarkable. EKG showed sinus tachycardia with a rate of 142, normal axis, [place] of 97, QRS of 100, QTc of 382, T wave flattening in aVL, and absence of ST elevation or depression. Patient was seen with Dr. Maria from urology and with anesthesiologist in preop room. He remains hypotensive requiring vasopressor and fluid resuscitation. Patient was admitted for severe sepsis with septic shock, UTI and renal calculi 03/20. Patient is status post bilateral ureteral stent placement, he received 6 L of crystalloids during procedure however became hypotensive. Patient was intubated on Levophed, propofol, fentanyl. Lactic acid was rising however now improving. Renal ultrasound ordered. Abdominal ultrasound ordered. 03/21. On sedation and Levophed. Breathing stable on ventilator. Leukocytosis trended down to 18,000 from 26,000 yesterday. Thrombocytopenia 33K. ABGs 7.3 //. Hypokalemia 2.5. Total bili 2.6. Liver enzymes otherwise stable. MRSA screen negative. Blood culture 03/19 positive for pansensitive E. col. urine culture remains negative. Chest x-ray from this morning reviewed. Increasing parenchymal infiltrate and pleural fluid consistent with fluid volume overload. Echocardiogram is completed and still pending. Plan for sedation vacation 03/22 patient had a chest x-ray done this morning which showed ETT 11 cm above the avel, with Lasix twice daily his right pleural effusion and infiltrates have significantly improved, his ventilator requirements are minimum, he is currently on sedation vacation.Leukocytosis improved to 14,000, hemoglobin stable thrombocytopenia 36,000, potassium low at 2.9 and being replaced, bilirubin trended up to 3.0, AST ALT unremarkable. 03/23 postextubation patient has been doing well. He is started drinking Ensure this morning. His bowel movements previously were mucousy and now more color. He is still on Levophed. WBC 14,000, platelets slightly improved to 40,000. Potassium low at 3.0. Bilirubin trending down to 2.2 after discontinuation of Zosyn. Discussed case with Dr. Huggins from surgery to evaluate for gallstones, doubt cholecystitis however surgical evaluation will be helpful. Dr. Huggins graciously accepted to see patient in consultation. 03/24 No overnight event or new complaints. Patient is off Levophed and vasopressin. Mother at bedside. Leukocytosis resolved. Follow-up chest x-ray pending. On room air he will drop to 88-89%. Mom says he typically runs about 93% at home normally. chest x-ray did show pleural effusions and infiltrates which have been improving daily. Hypokalemia improved. 03/25 Review of Systems: Unable to obtain given cerebral palsy and nonverbal status. PHYSICAL EXAM General: Alert, Awake, No acute Distress Eyes/N/T: EOMI, no scleral icterus, Head/Neck: neck supple, full ROM, normocephalic atraumatic CV: RRR, No murmurs, Pulm: Clear b/l, no wheezing/rhonchi/rales, no respiratory distress Abd: soft, nontender, +BS x4 Ext: no clubbing/cyanosis/edema, nontender Neuro: Alert, no focal deficits, moves all extremities, , sensations intact b/l upper/lower Psychiatric: Skin: warm/dry, normal color Constitutional Vitals: Vital Signs Temp Pulse Resp BP Pulse Ox O2 Del Method O2 Flow Rate 98.2 F 59 L 16 104/67 95 Room Air 2 03/25/23 04:01 03/25/23 04:01 03/25/23 04:01 03/25/23 04:01 03/25/23 04:01 03/25/23 04:01 03/24/23 20:00 Period Temp Pulse Resp BP Sys/Michael Pulse Ox O2 Del Method O2 Flow Rate Last 24 Hr 97.4 F-98.2 F 59-119 14-21 99-120/55-84 92-100 Nasal Cannula- Room Air 1-2 Intake and Output 03/24/23 03/25/23 03/25/23 19:59 03:59 11:59 Intake Total 360 100 Output Total 130 250 Balance 230 -150 Weight 34.11 kg Intake & Output: Intake & Output 03/24/23 03/25/23 03/25/23 19:59 03:59 11:59 Intake Total 360 100 Output Total 130 250 Balance 230 -150 Weight 34.11 kg Intake: Oral 360 100 Output: Urine Catheter Amount 130 250 Other: Meal Lunch Percent of Meal Consumed 100% Feeding Ability Total Assistance Urine Appearance Clear Clear Urine Color Yellow Dark Yellow Stool Size Moderate Stool Color Brown Yellow Stool Consistency Loose # Bowel Movements 1 # of times incontinent of 1 Bowels OBJ DATA Labs 03/24/23 05:28 03/24/23 05:28 Labs: Abnormal Lab Results 03/24/23 03/24/23 03/23/23 05:28 05:28 05:10 WBC 14.4 H RBC 2.69 L 2.65 L Hgb 10.2 L 10.0 L Hct 30.2 L 28.8 L MCV 112.3 H 108.7 H MCH 37.9 H 37.7 H Plt Count 52 L 40 L* MPV 14.8 H 15.4 H Immature Gran % (Auto) 1.0 H 0.7 H Immature Gran # 0.10 H 0.10 H Absolute Neutrophils 10.81 H POC pH POC pO2 POC HCO3 POC Total CO2 POC ABG Base Excess Hgb O2 Saturation Potassium Carbon Dioxide 31 H BUN 3 L Glucose 117 H Calcium 8.5 L Total Bilirubin 1.4 H Direct Bilirubin 0.9 H AST Alkaline Phosphatase 187 H Lactate Dehydrogenase Total Protein Albumin Triglycerides 178 H 03/23/23 03/22/23 05:10 08:02 WBC RBC Hgb Hct MCV MCH Plt Count MPV Immature Gran % (Auto) Immature Gran # Absolute Neutrophils POC pH 7.49 H POC pO2 136 H POC HCO3 27.8 H POC Total CO2 29.0 H POC ABG Base Excess 4.0 H Hgb O2 Saturation 99.0 H Potassium 3.0 L Carbon Dioxide 32 H BUN 3 L Glucose 54 L Calcium 8.0 L Total Bilirubin 2.2 H Direct Bilirubin 1.5 H AST 51 H Alkaline Phosphatase 192 H Lactate Dehydrogenase 254 H Total Protein 5.4 L Albumin 2.9 L Triglycerides 203 H Meds: Medications Acetaminophen (Acetaminophen 325 Mg Tablet) 650 mg PO Q4-6HP PRN; Protocol PRN Reason: Per Pain Protocol/Fever > 101 Albuterol Sulfate (Albuterol Sulfate 2.5 Mg/3 Ml Nebulizer) 2.5 mg NEB Q4 KATIE Last Admin: 03/25/23 04:29 Dose: Not Given Baclofen (Baclofen 10 Mg Tablet) 10 mg PO TIDP PRN PRN Reason: Pain Ceftriaxone Sodium (Ceftriaxone 1 Gm Vial) 1 gm IV DAILY [facility]; Protocol Last Admin: 03/24/23 09:06 Dose: 1 gm Clotrimazole (Clotrimazole Crm 1% 1 Dose Tube) 1 dose TOPICAL PRN PRN PRN Reason: Itching Last Admin: 03/24/23 20:44 Dose: 1 dose Dextrose (Dextrose 50% 50 Ml Vial) 25 ml IV UD PRN PRN Reason: Hypoglycemia Last Admin: 03/23/23 05:47 Dose: 25 ml Fluticasone Propionate (Fluticasone Propionate [place].Man) 2 spray NS DAILY [facility] Last Admin: 03/24/23 11:03 Dose: Not Given Haloperidol Lactate (Haloperidol Lactate 5 Mg/Ml Vial) 2.5 mg IV Q2HP PRN PRN Reason: ANXIETY/SEDATION Last Admin: 03/24/23 00:00 Dose: 2.5 mg Acetaminophen (Ofirmev) 650 mg in 65 mls @ 130 mls/hr IV Q6HP PRN; Protocol PRN Reason: PAIN/FEVER > 101 Last Infusion: 03/21/23 03:00 Dose: Infused Ondansetron HCl (Ondansetron 4 Mg/2 Ml Vial) 4 mg IV Q4-6HP PRN; Protocol PRN Reason: Nausea And Vomiting Last Admin: 03/22/23 20:26 Dose: 4 mg Pantoprazole Sodium (Pantoprazole 40 Mg Vial) 40 mg IV QAMAC KATIE Last Admin: 03/24/23 09:05 Dose: 40 mg Promethazine HCl/Codeine (Promethazine Hcl/Codeine 1 Ml Syrup) 5 ml PO Q4HP PRN PRN Reason: Cough Sodium Chloride (0.9 % Sodium Chloride 10 Ml Syringe) 10 ml IV Q8 KATIE Last Admin: 03/24/23 20:24 Dose: 10 ml Sodium Chloride (0.9 % Sodium Chloride 10 Ml Syringe) 10 ml IV UD PRN PRN Reason: FLUSH Last Admin: 03/22/23 21:59 Dose: 10 ml A/P Narrative A/P Narrative: Assessment: *Septic shock: 2/2 uti -vasopressor weaned off -Leukocytosis improving *Intubated and mechanical ventilation: -extubated 03/22 doing well. *Severe lactic acidosis, cleared: *UTI( ): blood culture positive for E. coli pansensitive *Bacteremia(e.coli): 2/2 above *Bilateral renal calculi Left obstructing: s/p bilateral stent placement (03/19) *Left hydronephrosis and hydroureter: 2/2 above -Repeat ultrasound after stenting with interval resolution of left hydronephrosis. *Hypokalemia, severe: improving *Volume overload: -Echo with EF 60-65%, normal diastolic function, no valvular dysfunction -Chest x-ray with increasing parenchymal infiltrate and pleural fluid, patient also appears puffy *Reactive airway disease/asthma: *Thrombocytopenia,chronic: *Anemia, chronic: *Leukocytosis, chronic: *Cerebral palsy/Developmental delay/Noncommunicative: *GERD: Plan: -Continue ceftriaxone, will need 10 to 14 days of antibiotics -Monitor renal function/UOP/electrolytes and replace as needed -Bilirubin improving, likely drug-induced from Zosyn which was discontinued -Dr. Maria following, continue Belt[place] -Correct hypokalemia with p.o. and IV KCl -prn lasix -Will need outpatient follow-up with urology -ppx: SCD(hold chemical for plt<50k) / home ppi Time Spent With Patient Time: Total time spent is greater than 50% in coordination of care (as documented) at patient's floor/unit and/or counseling patient: QUALITY VTE Deep Vein Thrombosis/Pulmonary Embolism Present on Admission: No
[2023-03-25] MEDS: 0.9 % SODIUM CHLORIDE 10 ML SYRINGE IV SCH ×2 (07:45→18:08)
[2023-03-25] MEDS: PANTOPRAZOLE 40 MG VIAL IV SCH (07:49)
[2023-03-25] MEDS: cefTRIAXone 1 GM VIAL IV SCH (10:16)
[2023-03-25] MEDS: FLUTICASONE PROPIONATE SPRAY.NAS NS SCH (10:20)
== END 2023-03-25 12:20 | disposition home or self-care (01) | DRG 871 ==
LOC: ED 22:55 → SUR 03-19 07:43 → ICU 03-19 09:33
PROVIDERS: ADMIT Internal Medicine; ATTEND Internal Medicine